=== PATIENT | male | born 1950 | race African-American/Black ===

== ENCOUNTER → 2017-07-26 | Outpatient (CLI) | payer OTHER, MEDICAID ==
[2016-10-20 09:17] VITALS: BP 127/70
[~2017-07-26] MED LIST: AZIT250T PO; BENZ100C PO; PROAIR HFA8.5 GM INH
--- NOTE | 2017-07-26 12:07 | RAD ---
Exam performed: 2 views of the chest. Indication: SHORTNESS OF AIR X 2 YEARS Date of Service:07/26/2017 2:00 AM . Comparison : One view chest from 10/20/16 Findings: PA and lateral radiographs of the chest reveal a normal cardiomediastinal contour. Atheromatous calcification of the aortic knob. The lungs are emphysematous, however clear. No pleural fluid is seen. The visualized osseous structures are unremarkable. Impression: No acute cardiopulmonary process seen..
== END | disposition home or self-care (01) ==
LOC: RAD 11:45
PROVIDERS: ATTEND Internal Medicine Pulmonary Disease
DX: J43.9 Emphysema, unspecified (principal); I70.0 Atherosclerosis of aorta
CPT/HCPCS: 71020

== ENCOUNTER → 2017-08-16 | Outpatient (CLI) | payer OTHER, MEDICAID ==
[2016-10-20 09:17] VITALS: BP 127/70
--- NOTE | 2017-08-16 15:18 | RAD ---
Indication chronic shortness of breath. Noncontrast imaging through the chest was performed. No prior CT imaging of the chest is available. Imaging through the upper abdomen shows no acute finding. There is a 1 cm mass in the left kidney likely reflecting a cyst. There is moderate plaquing associated with the thoracic aorta. Some coronary artery calcification is noted. There is a possible mass associated with the left lobe of the thyroid. The finding is not certain. If additional evaluation of the thyroid is warranted ultrasound could be performed. No significant mediastinal or hilar adenopathy isn't seen. There is mild hyperexpansion of the lungs. Advanced emphysematous changes are not seen. There is a small nodule peripherally in the left upper lobe, image 19 series 2 with an additional nodule slightly more caudally in the left upper lobe, image 24. Both of these nodules measure 3 to 4 millimeters in greatest dimension. An additional nodule is seen peripherally at the left lung base measuring approximately 4 mm. An acute parenchymal infiltrate is not seen. Significant pleural fluid is not present. IMPRESSION: No definite acute process seen in the chest. Moderate hyperexpansion. 2 nodules in the left upper lobe each measuring approximately 3 to 4 mm in greatest dimension. An additional nodule is seen in the left lower lobe, image 59, measuring approximately 4 mm. Follow-up imaging along the lines of the Fleischner criteria advised. Nodules detected incidentally at non-screening CT Nodule size (mm) less than or equal to 4 Low Risk patients- no follow-up needed High Risk patients- follow-up at 12 months and if no change, no further imaging needed. Nodule size > 4-6 mm Low risk patients- follow- up at 12 months and if no change, no further imaging needed High risk patients- initial follow-up CT at 6-12 months and then at 18-24 months if no change. Nodule Size > 6-8 mm Low risk patients- initial follow-up CT at 6-12 months and then at 18-24 months if no change. High risk patients- initial follow- up CT at 3-6 months and then at 9-12 months if no change, Nodule Size >8 mm Either low or high risk patients: Follow-up CT at around 3, 9 and [address], PET, and/or biopsy Note: newly detected indeterminate nodule in person 35 years of age or older. Low risk patients- minimal or absent history of smoking and/or other known risk factors. High risk patients- history of smoking or of other known risk factors. PQRS Compliance Statement: One or more of the following individualized dose reduction techniques were utilized for this examination: 1. Automated exposure control 2. Adjustment of the mA and/or kV according to patient size 3. Use of iterative reconstruction technique
== END | disposition home or self-care (01) ==
LOC: CT 14:42
PROVIDERS: ATTEND Internal Medicine Pulmonary Disease
DX: E04.2 Nontoxic multinodular goiter (principal)
CPT/HCPCS: 71250

== ENCOUNTER → 2017-10-27 | Outpatient (CLI) | payer OTHER ==
[2016-10-20 09:17] VITALS: BP 127/70
--- NOTE | 2017-10-28 15:48 | SLEEP ---
DATE OF STUDY: ATTENDING PHYSICIAN: Dr. Blackburn. REFERRING PHYSICIAN: Dr. Miramontes. The patient is a 67-year-old, who weighs 128 pounds with a BMI of 22. The patient's Patterson score was 8. Diagnostic sleep study was performed at [facility]. During the night study, the patient spent 419 minutes in bed and slept for 263 minutes with a low sleep efficiency of 63%. Sleep latency was 15 minutes with a REM latency of 193 minutes. Overall, sleep architecture showed increased stage 1 and stage 2 sleep, absent slow wave and reduced REM sleep. During the night of study, the patient had 2 obstructive apneas, 1 mixed and no central apneas. There were 7 hypopneas. The patient's apnea hypopnea index was 2 per hour, supine index 4 per hour and a REM index of 12 per hour. Review of nocturnal oximetry study revealed a mean oxygen saturation of 96%, with the lowest of 88%. No clinically significant desaturations of less than 88% were observed. PLMS were seen at index of 10 per hour and 1 per hour caused EEG arousals. EKG monitoring revealed normal sinus rhythm, average heart rate was 72 beats per minute, no sustained arrhythmias were observed. Due to low AHI, the patient did not meet the split night criteria for CPAP initiation. IMPRESSION: 1. No clinically significant sleep disorder breathing. The patient's AHI for the entire night was 2 per hour. 2. No clinically significant nocturnal hypoxia. 3. Mild PLMS without any significant EEG arousals. This does not need to be treated. 4. Reduced sleep efficiency of 63%, resulting from sleep maintenance insomnia. RECOMMENDATIONS: 1. The patient did not meet the split night criteria for CPAP initiation. 2. Avoid BRICK OFFBEARER depressants. 3. Evaluate the patient's insomnia and treat according to the etiology. BHAVIK ZARAGOZA MD DR: MOHIT/pippa JOB#: [id number] / [id number] DR ORLIN Reyes GEORGE MD
== END | disposition home or self-care (01) ==
LOC: SLPLAB 17:45
PROVIDERS: ATTEND Internal Medicine Pulmonary Disease
DX: G47.33 Obstructive sleep apnea (adult) (pediatric) (principal)
CPT/HCPCS: 95810

== ENCOUNTER 2018-11-05 09:14 | Emergency (ER) | payer OTHER ==
[~2018-11-05] VITALS: Ht 162.6 cm; Wt 59.0 kg
[2018-11-05 09:30] VITALS: BP 167/93
[2018-11-05] MEDS ORDERED: AZITHROMYCIN 250 MG TABLET. PO ONE (09:45)
[2018-11-05] MEDS ORDERED: cefTRIAXone IM 250 MG VIAL IM ONE (09:45)
[2018-11-05] MEDS ORDERED: METR500T PO (09:47)
--- NOTE | 2018-11-05 09:47 | PHYS DOC ---
Past Medical History Past Medical History: COPD, High Cholesterol, Hypertension Past Surgical History: Other Additional Past Surgical Histo: 4 stents Alcohol Use: Occasionally Drug Use: None Adult General Chief Complaint Chief Complaint: SEXUALLY TRANSMITTED DISEASE HPI HPI 68 y/o male presents with history of concern for possible STD. Reports he cheated on his with a younger girl and his recently tested positive for Trichomonas. Reports he was instructed to present to the ED for evaluation and treatment. Reports upon waking he does have a "foul odor". Denies dysuria or hematuria. Denies penile discharge or rash. Denies fever/chills. Review of Systems Review of Systems Constitutional: Denies fever or chills [] Eyes: Denies change in visual acuity, redness, or eye pain [] HENT: Denies nasal congestion or sore throat [] Respiratory: Denies cough or shortness of breath [] Cardiovascular: Denies chest pain or palpitation GI: Denies abdominal pain, nausea, vomiting, or diarrhea [] : Denies dysuria or hematuria; reports "foul odor" Integument: Denies rash or skin lesions [] Neurologic: Denies headache, focal weakness or sensory changes [] Complete systems were reviewed and found to be within normal limits, except as documented in this note. Current Medications Current Medications Current Medications Medications (Trade) Dose Ordered Sig/Candace Start Time Stop Time Status Last Admin Dose Admin Azithromycin (Zithromax) 1,000 mg 1X ONCE 11/05/18 09:45 11/05/18 09:48 DC 11/05/18 10:03 1,000 MG Ceftriaxone Sodium (Rocephin Im) 250 mg 1X ONCE 11/05/18 09:45 11/05/18 09:48 DC 11/05/18 10:04 250 MG Allergies Allergies Allergies Coded Allergies Type Severity Reaction Last Updated Verified No Known Drug Allergies 10/20/16 No Physical Exam Physical Exam Constitutional: Well developed, well nourished, no acute distress, non-toxic appearance. [] HENT: Normocephalic, atraumatic, Eyes: Conjunctiva normal, no discharge. [] Neck: Normal range of motion, no tenderness, supple Cardiovascular: Heart rate regular rhythm, no murmur [] Lungs & Thorax: Bilateral breath sounds clear to auscultation [] Abdomen: Soft, no tenderness Skin: Warm, dry, no erythema, no rash. [] Neurologic: Alert and oriented X 3, no focal deficits noted. [] Psychologic: Affect normal, judgement normal, mood normal. [] Current Patient Data Vital Signs Vital Signs Date Time Temp Pulse Resp B/P (MAP) Pulse Ox O2 Delivery O2 Flow Rate FiO2 11/05/18 09:30 97.5 69 20 167/93 (117) 99 Room Air 97.5 Lab Values Laboratory Tests Test 11/05/18 09:45 Urine Collection Type Void Urine Color Yellow Urine Clarity Clear Urine pH 5.5 Urine Specific [place] 1.015 Urine Protein Negative mg/dL (NEG-TRACE) Urine Glucose (UA) Negative mg/dL (NEG) Urine Ketones (Stick) Negative mg/dL (NEG) Urine Blood Negative (NEG) Urine Nitrite Negative (NEG) Urine Bilirubin Negative (NEG) Urine Urobilinogen Dipstick 1.0 mg/dL (0.2 mg/dL) Urine Leukocyte Esterase Moderate (NEG) Urine RBC Occ /HPF (0-2) Urine WBC 11-20 /HPF (0-4) Urine Squamous Epithelial Cells Mod /LPF Urine Bacteria Few /HPF (0-FEW) Urine Mucus Marked /LPF Urine Trichomonas Present Urine Sperm Present /HPF EKG EKG [] Radiology/Procedures Radiology/Procedures [] Course & Med Decision Making Course & Med Decision Making Pertinent Labs and Imaging studies reviewed. (See chart for details) Patient presents with report of concern for STD. Physical exam unremarkable. Urine Chlamydia and gonorrhea pending. Empiric antibiotics initiated. UA with signs of infection and trichomonas present. WBC likely due to trichamonas and/ or other infectious process. Will start patient on Flagyl. Patient stable for discharge with outpatient follow-up with PCP. Discussed findings and plan with patient, who acknowledges understanding and agreement. Dragon Disclaimer Dragon Disclaimer This electronic medical record was generated, in whole or in part, using a voice recognition dictation system. Departure Departure Impression: Primary Impression: Concern about sexually transmitted disease in male without diagnosis Additional Impression: Trichomoniasis Disposition: 01 HOME, SELF-CARE Condition: STABLE Referrals: [facility] (PCP) Patient Instructions: Sexually Transmitted Disease, [id number]-[id number] Scripts Metronidazole (FLAGYL) 500 Mg Tablet 1 TAB PO BID, #14 TAB Prov: RANJIT DINH DO 12/8/18 Problem Qualifiers RANJIT DINH DO Nov 05, 2018 09:47
[2018-11-05 10:02] LABS: BILIRUBIN,URINE NEGATIVE (NEG); CLARITY,URINE CLEAR; COLOR,URINE YELLOW; NITRITE,URINE NEGATIVE (NEG); PH,URINE 5.5; PROTEIN,URINE NEGATIVE (NEG-TRACE)
[2018-11-05 10:08] LABS: SQUAMOUS EPITHELIAL CELL,UR MOD /LPF
[2018-11-05 10:11] LABS: SPERM,URINE PRESENT /HPF; TRICHOMONAS,URINE PRESENT
[2018-11-05 10:12] LABS: BACTERIA,URINE FEW /HPF (0-FEW)
[2018-11-05 10:18] LABS: RBC,URINE OCC /HPF (0-2)
== END 2018-11-05 10:26 | disposition home or self-care (01) ==
LOC: ER 09:14
DX: Z20.2 Contact with and (suspected) exposure to infections with a predominantly sexual mode of transmission (principal); A59.9 Trichomoniasis, unspecified; R82.998 Other abnormal findings in urine; E78.00 Pure hypercholesterolemia, unspecified; I10 Essential (primary) hypertension; J44.9 Chronic obstructive pulmonary disease, unspecified; Z95.5 Presence of coronary angioplasty implant and graft
CPT/HCPCS: 81001; 87086; 87491; 87591; 96372; 99283; J0696; Q0144

== ENCOUNTER 2018-11-08 17:12 | Emergency (ER) | payer OTHER ==
[~2018-11-08] VITALS: Ht 162.6 cm; Wt 58.1 kg
[~2018-11-08 17:12] MED LIST changes: +METR500T PO
--- NOTE | 2018-11-08 19:23 | PHYS DOC ---
Past Medical History Past Medical History: COPD, High Cholesterol, Heart Disease, Hypertension Past Surgical History: Other Additional Past Surgical Histo: 4 stents Alcohol Use: Occasionally Drug Use: None Adult General Chief Complaint Chief Complaint: SHORTNESS OF BREATH HPI HPI Patient is a 68 year old male who presents with shortness of breath. This started last night. Patient is been getting no relief with his home medicines for COPD. Patient has never been intubated for COPD. Last steroids were greater than 6 months ago when he was seen at . He has been previously admitted due to COPD exacerbations. Patient denies any fever, mild cough. No chest pain.[] Review of Systems Review of Systems Constitutional: Denies fever or chills [] Eyes: Denies change in visual acuity, redness, or eye pain [] HENT: Denies nasal congestion or sore throat [] Respiratory: See history of present illness[] Cardiovascular: No chest pain or palpitations[] GI: Denies abdominal pain, nausea, vomiting, bloody stools or diarrhea [] : Denies dysuria or hematuria [] Musculoskeletal: Denies back pain or joint pain [] Integument: Denies rash or skin lesions [] Neurologic: Denies focal weakness or sensory changes. Reports a mild generalized headache. [] Endocrine: Denies polyuria or polydipsia [] All other systems were reviewed and found to be within normal limits, except as documented in this note. Current Medications Current Medications Current Medications Medications (Trade) Dose Ordered Sig/Candace Start Time Stop Time Status Last Admin Dose Admin Albuterol Sulfate (Ventolin Neb Soln) 2.5 mg 1X ONCE 11/08/18 19:30 11/08/18 19:31 DC 11/08/18 19:50 2.5 MG Ipratropium [place] (Atrovent) 0.5 mg 1X ONCE 11/08/18 19:30 11/08/18 19:31 DC 11/08/18 19:49 0.5 MG Methylprednisolone Sodium Succinate (SOLU-Medrol 125MG VIAL) 125 mg 1X ONCE 11/08/18 19:30 11/08/18 19:31 DC 11/08/18 19:40 125 MG Allergies Allergies Allergies Coded Allergies Type Severity Reaction Last Updated Verified No Known Drug Allergies 11/08/18 No Physical Exam Physical Exam Constitutional: Well developed, well nourished, no acute distress, non-toxic appearance. [] HENT: Normocephalic, atraumatic, bilateral external ears normal, oropharynx moist, no oral exudates, nose normal. [] Eyes: PERRLA, EOMI, conjunctiva normal, no discharge. [] Neck: Normal range of motion, no tenderness, supple, no stridor. [] Cardiovascular:Heart rate regular rhythm, no murmur [] Lungs & Thorax: Bilateral breath sounds with end expiratory wheezes.[] Abdomen: Bowel sounds normal, soft, no tenderness, no masses, no pulsatile masses. [] Skin: Warm, dry, no erythema, no rash. [] Back: No tenderness, no CVA tenderness. [] Extremities: No tenderness, no cyanosis, no clubbing, ROM intact, no edema. [] Neurologic: Alert and oriented X 3, normal motor function, normal sensory function, no focal deficits noted. [] Psychologic: Affect normal, judgement normal, mood normal. [] Current Patient Data Vital Signs Vital Signs Date Time Temp Pulse Resp B/P (MAP) Pulse Ox O2 Delivery O2 Flow Rate FiO2 11/08/18 19:45 97 Nasal Cannula 2.0 11/08/18 18:20 98.9 74 24 186/91 (122) 98.9 Lab Values Laboratory Tests Test 11/08/18 18:45 11/08/18 19:35 White Blood Count 4.1 x10^3/uL (4.0-11.0) Red Blood Count 4.35 x10^6/uL (4.30-5.70) Hemoglobin 13.5 g/dL (13.0-17.5) Hematocrit 39.8 % (39.0-53.0) Mean Corpuscular Volume 91 fL (79-100) Mean Corpuscular Hemoglobin 31 pg (25-35) Mean Corpuscular Hemoglobin Concent 34 g/dL (31-37) Red Cell Distribution Width 14.0 % (11.5-14.5) Platelet Count 178 x10^3/uL (140-400) Neutrophils (%) (Auto) 56 % (31-73) Lymphocytes (%) (Auto) 27 % (24-48) Monocytes (%) (Auto) 10 % (0-9) H Eosinophils (%) (Auto) 6 % (0-3) H Basophils (%) (Auto) 1 % (0-3) Neutrophils # (Auto) 2.3 x10^3uL (1.8-7.7) Lymphocytes # (Auto) 1.1 x10^3/uL (1.0-4.8) Monocytes # (Auto) 0.4 x10^3/uL (0.0-1.1) Eosinophils # (Auto) 0.3 x10^3/uL (0.0-0.7) Basophils # (Auto) 0.0 x10^3/uL (0.0-0.2) Sodium Level 140 mmol/L (136-145) Potassium Level 3.9 mmol/L (3.5-5.1) Chloride Level 103 mmol/L (98-107) Carbon Dioxide Level 29 mmol/L (21-32) Anion Gap 8 (6-14) Blood Urea Nitrogen 21 mg/dL (8-26) Creatinine 1.0 mg/dL (0.7-1.3) Estimated GFR (Cockcroft-Gault) 90.2 BUN/Creatinine Ratio 21 (6-20) H Glucose Level 80 mg/dL (70-99) Calcium Level 9.1 mg/dL (8.5-10.1) Total Bilirubin 0.2 mg/dL (0.2-1.0) Aspartate Amino Transferase (AST) 20 U/L (15-37) Alanine Aminotransferase (ALT) 21 U/L (16-63) Alkaline Phosphatase 74 U/L (46-116) Troponin I Quantitative < 0.017 ng/mL (0.000-0.055) JL-Eyj-I-Type Natriuretic Peptide 215 pg/mL (0-124) H Total Protein 7.3 g/dL (6.4-8.2) Albumin 3.8 g/dL (3.4-5.0) Albumin/Globulin Ratio 1.1 (1.0-1.7) Influenza Type A Antigen Negative (NEGATIVE) Influenza Type B Antigen Negative (NEGATIVE) Laboratory Tests 11/08/18 18:45 Laboratory Tests 11/08/18 18:45 EKG EKG EKG shows a sinus rhythm at 74 bpm, normal axis, normal QTC, no ST elevation.[] Radiology/Procedures Radiology/Procedures Chest x-ray FINDINGS: Heart is normal in size. Lungs are hyperinflated but clear. No pneumothorax or pleural effusion. Visualized bony thorax is within normal limits. Impression: Findings of COPD. No acute pulmonary process.[] Course & Med Decision Making Course & Med Decision Making Pertinent Labs and Imaging studies reviewed. (See chart for details) ED course: Patient arrived, was placed in bed, tolerated exam well. Patient was transported to and from x-ray with any consultations. Patient did receive breathing treatments which didn't improve his breath sounds. Patient was able to ambulate about the emergency department without any difficulty breathing. After the return of lab and tray findings, these were discussed with the patient to voiced understanding. All questions were answered. Occult decision making: There is no evidence of pneumonia, pneumothorax, hypoxia worse than his usual baseline for which he requires 2 L nasal cannula supplemental oxygen, no evidence of a acute coronary syndrome, no evidence of pulmonary embolism.[] Dragon Disclaimer Dragon Disclaimer This electronic medical record was generated, in whole or in part, using a voice recognition dictation system. Departure Departure Impression: Primary Impression: Acute exacerbation of chronic obstructive pulmonary disease (COPD) Disposition: 01 HOME, SELF-CARE Condition: GOOD Referrals: [facility] (PCP) Follow-up in 2 days Patient Instructions: Chronic Obstructive Pulmonary Disease Exacerbation Additional Instructions: Follow-up with your regular doctor 2 days. Return to the ER if worsening difficulty breathing or any other concerns. Scripts Doxycycline Hyclate (DOXYCYCLINE HYCLATE) 100 Mg Tablet 100 MG PO BID, #20 TAB Prov: TATY AL DO 11/08/18 Prednisone (PREDNISONE) 50 Mg Tablet 50 MG PO DAILY for 7 Days, #7 TAB Prov: TATY AL DO 11/08/18 TATY AL DO Nov 08, 2018 19:23
[2018-11-08 19:33] LABS: BASO % 1 % (0-3); EOS # 0.3 x10^3/uL (0.0-0.7); EOS % 6 % (0-3); HEMATOCRIT 39.8 % (39.0-53.0); HEMOGLOBIN 13.5 g/dL (13.0-17.5); LYMPH # 1.1 x10^3/uL (1.0-4.8); LYMPH % 27 % (24-48); MEAN CORPUSCULAR HEMOGLOBIN 31 pg (25-35); MEAN CORPUSCULAR HGB CONC 34 g/dL (31-37); MEAN CORPUSCULAR VOLUME 91 fL (79-100); MONO # 0.4 x10^3/uL (0.0-1.1); MONO % 10 % (0-9); NEUT # 2.3 x10^3uL (1.8-7.7); NEUT % 56 % (31-73); PLATELET COUNT 178 x10^3/uL (140-400); RED BLOOD COUNT 4.35 x10^6/uL (4.30-5.70); WHITE BLOOD COUNT 4.1 x10^3/uL (4.0-11.0)
[2018-11-08] MEDS: methylPREDNISolone SOD SUCC PF 125 MG/2 ML VIAL. IV ONE (19:40)
[2018-11-08 19:42] LABS: CALCIUM 9.1 mg/dL (8.5-10.1); GFR 90.2; POTASSIUM 3.9 mmol/L (3.5-5.1)
[2018-11-08 19:48] LABS: ALBUMIN 3.8 g/dL (3.4-5.0); ALBUMIN/GLOBULIN RATIO 1.1 (1.0-1.7); TOTAL BILIRUBIN 0.2 mg/dL (0.2-1.0); TOTAL PROTEIN 7.3 g/dL (6.4-8.2)
[2018-11-08] MEDS: IPRATROPIUM BROMIDE 0.5 MG/2.5 ML NEBU. NEB ONE (19:49)
[2018-11-08] MEDS: ALBUTEROL SULFATE 2.5 MG/3 ML NEBU. NEB ONE (19:50)
[2018-11-08 20:19] LABS: INFLUENZA A PATIENT NEGATIVE (NEGATIVE); INFLUENZA B PATIENT NEGATIVE (NEGATIVE)
--- NOTE | 2018-11-08 20:29 | RAD ---
CHEST PA LATERAL CLINICAL INDICATION: short of breath, hx of COPD COMPARISON: 07/26/2017 FINDINGS: Heart is normal in size. Lungs are hyperinflated but clear. No pneumothorax or pleural effusion. Visualized bony thorax is within normal limits. Impression: Findings of COPD. No acute pulmonary process. Electronically signed by: Fer Edmondson DO (11/08/2018 8:26 PM) [facility]
[2018-11-08] MEDS ORDERED: DOXY100T PO (20:40)
[2018-11-08] MEDS ORDERED: PRED50TA PO (20:40)
[2018-11-08 21:00] VITALS: BP 179/97
--- NOTE | 2018-11-08 22:02 | EKG ---
[facility] [address] [place] [address] Test Date: 2018-11-08 Test Time: 18:21:47 Pat Name: TACO POWER Department: Room: Gender: M Time Study Observer: : 1950 Requested By: TATY AL Order Number: [id number] Reading MD: Measurements Intervals [place] Rate: 74 P: 71 NV: 116 QRS: 74 QRSD: 80 T: 65 QT: 336 QTc: 378 Interpretive Statements SINUS RHYTHM NO SPECIFIC ECG ABNORMALITIES RI6.01 No previous ECG available for comparison
== END 2018-11-08 21:00 | disposition home or self-care (01) ==
LOC: ER 17:12
DX: J44.1 Chronic obstructive pulmonary disease with (acute) exacerbation (principal); E78.00 Pure hypercholesterolemia, unspecified; I11.9 Hypertensive heart disease without heart failure; Z95.5 Presence of coronary angioplasty implant and graft
CPT/HCPCS: 36415; 71046; 80053; 83880; 84484; 85025; 87804; 93005; 94640; 96374; 99284; J2930; J7613; J7644

== ENCOUNTER 2019-10-17 15:56 | Inpatient (IN) | payer OTHER, MEDICAID ==
[~2019-10-17] VITALS: Ht 162.6 cm; Wt 50.8 kg
[~2019-10-17 15:56] MED LIST changes: +ALBU2.5V8 INH; +DOXY100T PO; +PRED50TA PO; -PROAIR HFA8.5 GM INH
[2019-10-17] MEDS ORDERED: DEXAMETHASONE SOD PHOS 4 MG/ML VIAL IVP ONE (16:15)
[2019-10-17] MEDS ORDERED: KETOROLAC 15 MG/ML VIAL. IVP ONE (16:15)
[2019-10-17] MEDS ORDERED: FAMOTIDINE 20 MG/2 ML VIAL IVP ONE (16:15)
[2019-10-17] MEDS ORDERED: IV NORMAL SALINE 1000ML BAG 1,000 ML IV ONE ×2 (16:15→18:30)
[2019-10-17] MEDS ORDERED: IPRATRPIUM/ALBUTEROL 0.5/2.5MG 3 ML NEBU. NEB ONE (16:15)
--- NOTE | 2019-10-17 16:23 | PHYS DOC ---
Past Medical History Past Medical History: COPD, High Cholesterol, Heart Disease, Hypertension Past Surgical History: Other Additional Past Surgical Histo: 4 stents Smoking: Quit Greater Than 1 Year Additional Information: Quit 18 years ago Alcohol Use: Occasionally Drug Use: None Adult General Chief Complaint Chief Complaint: SHORTNESS OF BREATH HPI HPI Pt is a 69 y/o male with a history of COPD, MIx2 w/ stent placement, HLD, and HTN who presents to the ED with weakness, SOB, and productive cough for the past 2 days. He also complains of periumbilical abdominal pain and dizziness. Denies nausea, vomiting,diarrhea, recent travel, and dysuria. Denies trauma. Denies fever/chills. Review of Systems Review of Systems Constitutional: Denies fever or chills Eyes: Denies redness or eye pain HENT: Denies nasal congestion or sore throat Respiratory: Reports cough and SOB Cardiovascular: Denies chest pain or palpitations GI: Reports abdominal pain; denies nausea, vomiting, or diarrhea : Denies dysuria or hematuria Musculoskeletal: Denies back pain or joint pain Integument: Denies rash or skin lesions Neurologic: Reports weakness and dizziness Complete systems were reviewed and found to be within normal limits, except as documented in this note. Current Medications Current Medications Current Medications Medications (Trade) Dose Ordered Sig/Candace Start Time Stop Time Status Last Admin Dose Admin Acetaminophen (Tylenol) 650 mg PRN Q4HRS PRN 10/17/19 18:30 UNV Albuterol Sulfate (Ventolin Neb Soln) 2.5 mg PRN Q4HRS PRN 10/17/19 18:30 UNV Albuterol/ Ipratropium (Duoneb) 3 ml 1X ONCE 10/17/19 16:15 10/17/19 16:19 DC 10/17/19 16:23 3 ML Clonidine HCl (Catapres) 0.1 mg PRN Q6HRS PRN 10/17/19 18:30 UNV Dexamethasone Sodium Phosphate (Decadron) 10 mg 1X ONCE 10/17/19 16:15 10/17/19 16:19 DC 10/17/19 17:17 10 MG Docusate Sodium (Colace) 100 mg PRN BID PRN 10/17/19 18:30 UNV Famotidine (Pepcid Vial) 20 mg 1X ONCE 10/17/19 16:15 10/17/19 16:19 DC 10/17/19 17:16 20 MG Guaifenesin (Robitussin) 200 mg PRN Q4HRS PRN 10/17/19 18:30 UNV Info (CONTRAST GIVEN -- Rx MONITORING) 1 each PRN DAILY PRN 10/17/19 16:45 10/19/19 16:44 Iohexol (Omnipaque 300 Mg/ml) 75 ml 1X ONCE 10/17/19 16:45 10/17/19 16:46 DC 10/17/19 17:04 75 ML Ketorolac Tromethamine (Toradol 15mg Vial) 10 mg 1X ONCE 10/17/19 16:15 10/17/19 16:19 DC 10/17/19 17:16 10 MG Lorazepam (Ativan) 0.5 mg PRN Q4HRS PRN 10/17/19 18:30 UNV Ondansetron HCl (Zofran) 4 mg PRN Q4HRS PRN 10/17/19 18:30 UNV Sodium Chloride 1,000 ml @ 100 mls/hr Q10H 10/17/19 18:26 UNV Sodium Chloride (Normal Saline Flush) 3 ml QSHIFT PRN 10/17/19 18:30 UNV Allergies Allergies Allergies Coded Allergies Type Severity Reaction Last Updated Verified No Known Drug Allergies 11/08/18 No Physical Exam Physical Exam Constitutional: Appears cachetic and thin Eyes: Conjunctiva normal, NO discharge HENT: Normocephalic, atraumatic, oropharynx dry, edentulous Cardiovascular: Heart rate tachycardic, regular rhythm Lungs & Thorax: Bilateral breath sounds clear to auscultation but with short inspirations Abdomen: Soft, periumbilical tenderness on palpation, guarding, no distention Skin: Warm, dry, no erythema, no rash Back: No tenderness, no CVA tenderness Extremities: No tenderness, ROM intact, no edema Neurologic: Alert and oriented X 3, normal motor function, normal sensory function, no focal deficits noted Psychiatric: Flat affect, judgement normal Current Patient Data Vital Signs Vital Signs Date Time Temp Pulse Resp B/P (MAP) Pulse Ox O2 Delivery O2 Flow Rate FiO2 10/17/19 16:24 97 Room Air 10/17/19 15:56 98.4 76 18 112/64 (80) 98.4 Lab Values Laboratory Tests Test 10/17/19 16:04 White Blood Count 3.6 x10^3/uL (4.0-11.0) L Red Blood Count 5.14 x10^6/uL (4.30-5.70) Hemoglobin 15.6 g/dL (13.0-17.5) Hematocrit 47.3 % (39.0-53.0) Mean Corpuscular Volume 92 fL (79-100) Mean Corpuscular Hemoglobin 30 pg (25-35) Mean Corpuscular Hemoglobin Concent 33 g/dL (31-37) Red Cell Distribution Width 14.4 % (11.5-14.5) Platelet Count 206 x10^3/uL (140-400) Neutrophils (%) (Auto) 52 % (31-73) Lymphocytes (%) (Auto) 29 % (24-48) Monocytes (%) (Auto) 18 % (0-9) H Eosinophils (%) (Auto) 0 % (0-3) Basophils (%) (Auto) 1 % (0-3) Neutrophils # (Auto) 1.9 x10^3/uL (1.8-7.7) Lymphocytes # (Auto) 1.0 x10^3/uL (1.0-4.8) Monocytes # (Auto) 0.7 x10^3/uL (0.0-1.1) Eosinophils # (Auto) 0.0 x10^3/uL (0.0-0.7) Basophils # (Auto) 0.0 x10^3/uL (0.0-0.2) Sodium Level 138 mmol/L (136-145) Potassium Level 4.6 mmol/L (3.5-5.1) Chloride Level 98 mmol/L (98-107) Carbon Dioxide Level 29 mmol/L (21-32) Anion Gap 11 (6-14) Blood Urea Nitrogen 16 mg/dL (8-26) Creatinine 1.6 mg/dL (0.7-1.3) H Estimated GFR (Cockcroft-Gault) 52.3 BUN/Creatinine Ratio 10 (6-20) Glucose Level 104 mg/dL (70-99) H Lactic Acid Level 1.5 mmol/L (0.4-2.0) Calcium Level 9.2 mg/dL (8.5-10.1) Magnesium Level 2.2 mg/dL (1.8-2.4) Total Bilirubin 0.6 mg/dL (0.2-1.0) Aspartate Amino Transferase (AST) 28 U/L (15-37) Alanine Aminotransferase (ALT) 23 U/L (16-63) Alkaline Phosphatase 65 U/L (46-116) Creatine Kinase 300 U/L (39-308) Creatine Kinase MB (Mass) 1.1 ng/mL (0.0-3.6) Creatine Kinase MB Relative Index 0.4 % (0-4) Troponin I Quantitative < 0.017 ng/mL (0.000-0.055) Total Protein 7.8 g/dL (6.4-8.2) Albumin 3.6 g/dL (3.4-5.0) Albumin/Globulin Ratio 0.9 (1.0-1.7) L Lipase 75 U/L (73-393) Laboratory Tests 10/17/19 16:04 Laboratory Tests 10/17/19 16:04 EKG EKG [] Interpretation Time: ECG @ 1641 on 10/17/19, 81 BPM, Sinus rhythm with PACs, No ST elevations Radiology/Procedures Radiology/Procedures PROCEDURE: CT CHEST ABD PELVIS W/CONTRAST CT CHEST ABD PELVIS W/CONTRAST Clinical Indication: Cough, periumbilical pain COMPARISON: CT chest 12/16/2016 TECHNIQUE: Multiple contiguous axial images were obtained throughout the chest, abdomen, and pelvis with the use of IV contrast. Axial images were reformatted into coronal and sagittal planes. 60 mL Omnipaque 300 was administered. One or more of the following dose reduction techniques were utilized: Automated exposure control (AEC), Adjustment of mA and/or kV according to patient size, Use of iterative reconstruction technique such as ASiR, CT scan done according to ALARA and image gently/image wisely. Chest Findings: Left thyroid nodule measuring 2.7 cm. There is no axillary, mediastinal, or hilar adenopathy. Atherosclerosis of the thoracic aorta. The cardiac size is normal. Coronary artery atherosclerotic disease. There is no pericardial effusion. The central airways are patent. There is no focal consolidation. Stable small pulmonary nodules with resources representative nodules as follows: left upper lobe nodule measuring 0.5 cm (series 2 image 17) and left lower lobe nodule measuring 0.3 cm (image 56). Centrilobular emphysema. No pleural effusion is observed. There is no pneumothorax. Abdomen findings: The liver, gallbladder, pancreas, and adrenal glands are unremarkable. Calcified splenic granulomas. 1.3 cm left renal cyst. No hydronephrosis There is no significant mesenteric or retroperitoneal adenopathy identified. There is no evidence of free intraperitoneal fluid or pneumoperitoneum. Visualized portions of the bowel are grossly unremarkable. Diffuse aortoiliac atherosclerotic disease. Pelvis findings: The bladder and distal ureters are unremarkable. There is no significant pelvic ascites. No significant iliac or inguinal adenopathy is identified. Multilevel degenerative changes of the spine. IMPRESSION: 1. No pulmonary mass or consolidation. 2. No acute abdominal process. 3. Left thyroid nodule measuring 2.7 cm should be further characterized with nonemergent thyroid ultrasound, if not performed previously. Electronically signed by: Gui Bo MD (10/17/2019 5:39 PM) [facility] [place] [facility] [place] Course & Med Decision Making Course & Med Decision Making Pt is a 69 y/o male with a history of COPD, MIx2, HLD, HTN who presents to the ED with weakness, cough, and SOB for the past 2 days. Also complains of abdominal pain and dizziness. Pt given a DuoNeb breathing treatment due to increased work of breathing. Clinical signs of dehydration. IVF hydration given. Symptomatic treatment provided. Labs obtained and posted to chart. Renal insufficiency noted. UA pending. EKG stable. CT chest/abd/pelvis without acute process. Patient requiring admission for further evaluation and treatment. Discussed case with Dr. Calhoun (hospitalist) who is in agreement with admission. Discussed findings and plan with patient, who acknowledges understanding and agreement. Dragon Disclaimer Dragon Disclaimer This electronic medical record was generated, in whole or in part, using a voice recognition dictation system. Departure Departure Impression: Primary Impression: Generalized weakness Additional Impressions: Acute renal insufficiency Abdominal pain Dehydration COPD exacerbation Disposition: ADMITTED INPATIENT Admitting Physician: ADEN (Lj) Condition: STABLE Referrals: [facility] TECHNICIAN (PCP) NIHSS - ED NIH Stroke Scale: NIH Stroke Scale Response (Comments) Value Level of Consciousness: 0 Alert/Responsive 0 LOC Questions: 0 Answers both correctly 0 LOC Commands: 0 Performs both tasks 0 Best Gaze: 0 Normal 0 Visual: 0 No visual loss 0 Facial Palsy: 0 Normal, symmetrical 0 Motor - Left Arm 0 No drift 0 Motor - Right Arm 0 No drift 0 Motor - Left Leg 0 No drift 0 Motor: Right Leg 0 No drift 0 Limb Ataxia: 0 Absent 0 Sensory: 0 No loss 0 Best Language: 0 Normal 0 Dysathria: 0 Normal 0 Extinction and Inattention: 0 Normal 0 Total 0 Problem Qualifiers Additional Impressions: Abdominal pain Abdominal location: periumbilical Qualified Codes: R10.33 - Periumbilical pain RANJIT DINH DO Oct 17, 2019 16:23
[2019-10-17 16:45] LABS: CALCIUM 9.2 mg/dL (8.5-10.1); CREATININE 1.6 mg/dL (0.7-1.3); GFR 52.3; POTASSIUM 4.6 mmol/L (3.5-5.1)
[2019-10-17] MEDS ORDERED: CONTRAST GIVEN. MC PRN (16:45)
[2019-10-17] MEDS ORDERED: IOHEXOL 300 MG/ML 100ML VIAL. IV ONE (16:45)
[2019-10-17 16:50] LABS: ALBUMIN 3.6 g/dL (3.4-5.0); ALBUMIN/GLOBULIN RATIO 0.9 (1.0-1.7); MAGNESIUM 2.2 mg/dL (1.8-2.4); TOTAL BILIRUBIN 0.6 mg/dL (0.2-1.0); TOTAL PROTEIN 7.8 g/dL (6.4-8.2)
[2019-10-17 17:01] LABS: BASO % 1 % (0-3); EOS % 0 % (0-3); HEMATOCRIT 47.3 % (39.0-53.0); HEMOGLOBIN 15.6 g/dL (13.0-17.5); LYMPH % 29 % (24-48); MEAN CORPUSCULAR HEMOGLOBIN 30 pg (25-35); MEAN CORPUSCULAR HGB CONC 33 g/dL (31-37); MEAN CORPUSCULAR VOLUME 92 fL (79-100); MONO # 0.7 x10^3/uL (0.0-1.1); MONO % 18 % (0-9); NEUT # 1.9 x10^3/uL (1.8-7.7); NEUT % 52 % (31-73); PLATELET COUNT 206 x10^3/uL (140-400); RED BLOOD COUNT 5.14 x10^6/uL (4.30-5.70); RED CELL DISTRIBUTION WIDTH 14.4 % (11.5-14.5); WHITE BLOOD COUNT 3.6 x10^3/uL (4.0-11.0)
--- NOTE | 2019-10-17 17:41 | RAD ---
CT CHEST ABD PELVIS W/CONTRAST Clinical Indication: Cough, periumbilical pain COMPARISON: CT chest 12/16/2016 TECHNIQUE: Multiple contiguous axial images were obtained throughout the chest, abdomen, and pelvis with the use of IV contrast. Axial images were reformatted into coronal and sagittal planes. 60 mL Omnipaque 300 was administered. One or more of the following dose reduction techniques were utilized: Automated exposure control (AEC), Adjustment of mA and/or kV according to patient size, Use of iterative reconstruction technique such as ASiR, CT scan done according to ALARA and image gently/image wisely. Chest Findings: Left thyroid nodule measuring 2.7 cm. There is no axillary, mediastinal, or hilar adenopathy. Atherosclerosis of the thoracic aorta. The cardiac size is normal. Coronary artery atherosclerotic disease. There is no pericardial effusion. The central airways are patent. There is no focal consolidation. Stable small pulmonary nodules with customer operations representative nodules as follows: left upper lobe nodule measuring 0.5 cm (series 2 image 17) and left lower lobe nodule measuring 0.3 cm (image 56). Centrilobular emphysema. No pleural effusion is observed. There is no pneumothorax. Abdomen findings: The liver, gallbladder, pancreas, and adrenal glands are unremarkable. Calcified splenic granulomas. 1.3 cm left renal cyst. No hydronephrosis There is no significant mesenteric or retroperitoneal adenopathy identified. There is no evidence of free intraperitoneal fluid or pneumoperitoneum. Visualized portions of the bowel are grossly unremarkable. Diffuse aortoiliac atherosclerotic disease. Pelvis findings: The bladder and distal ureters are unremarkable. There is no significant pelvic ascites. No significant iliac or inguinal adenopathy is identified. Multilevel degenerative changes of the spine. IMPRESSION: 1. No pulmonary mass or consolidation. 2. No acute abdominal process. 3. Left thyroid nodule measuring 2.7 cm should be further characterized with nonemergent thyroid ultrasound, if not performed previously. Electronically signed by: Gui Bo MD (10/17/2019 5:39 PM) [facility]
--- NOTE | 2019-10-17 18:29 | PDOC1 ---
History and Physical Date of Admission Date of Admission DATE: 10/17/19 TIME: 18:21 Identification/Chief Complaint Chief Complaint Pt is a 69 y/o male with a history of COPD, MIx2 w/ stent placement, HLD, and HTN who presents to the ED with weakness, SOB, and productive cough for the past 2 days. He also complains of periumbilical abdominal pain and dizziness. Past Medical History Past Medical History Past Medical History Past Medical History Past Medical History: COPD, High Cholesterol, Heart Disease, Hypertension Past Surgical History: Other Additional Past Surgical Histo: 4 stents Additional Information: Quit 18 years ago Alcohol Use: Occasionally Drug Use: None fhx htn Family History Family History: Hypertension Social History Smoke: Quit ALCOHOL: occassional Drugs: None Current Problem List Problem List Problems Medical Problems: (1) Acute renal insufficiency Status: Acute Current Medications Current Medications Current Medications Sodium Chloride 1,000 ml @ 1,000 mls/hr 1X ONCE IV Last administered on 10/17/19at 17:16; Start 10/17/19 at 16:15; Stop 10/17/19 at 17:14; Status DC Famotidine (Pepcid Vial) 20 mg 1X ONCE IVP Last administered on 10/17/19at 17:16; Start 10/17/19 at 16:15; Stop 10/17/19 at 16:19; Status DC Ketorolac Tromethamine (Toradol 15mg Vial) 10 mg 1X ONCE IVP Last administered on 10/17/19at 17:16; Start 10/17/19 at 16:15; Stop 10/17/19 at 16:19; Status DC Dexamethasone Sodium Phosphate (Decadron) 10 mg 1X ONCE IVP Last administered on 10/17/19at 17:17; Start 10/17/19 at 16:15; Stop 10/17/19 at 16:19; Status DC Albuterol/ Ipratropium (Duoneb) 3 ml 1X ONCE NEB Last administered on 10/17/19at 16:23; Start 10/17/19 at 16:15; Stop 10/17/19 at 16:19; Status DC Iohexol (Omnipaque 300 Mg/ml) 75 ml 1X ONCE IV Last administered on 10/17/19at 17:04; Start 10/17/19 at 16:45; Stop 10/17/19 at 16:46; Status DC Info (CONTRAST GIVEN -- Rx MONITORING) 1 each PRN DAILY PRN MC SEE COMMENTS; Start 10/17/19 at 16:45; Stop 10/19/19 at 16:44 Active Scripts Active Doxycycline Hyclate 100 Mg Tablet 100 Mg PO BID Prednisone 50 Mg Tablet 50 Mg PO DAILY 7 Days Flagyl (Metronidazole) 500 Mg Tablet 1 Tab PO BID Proair Hfa Inhaler (Albuterol Sulfate) 8.5 Gm Hfa.aer.ad 1 Puff INH PRN Q6HRS PRN Tessalon Perle (Benzonatate) 100 Mg Capsule 100 Mg PO TID PRN Zithromax (Azithromycin) 250 Mg Tablet 1 Pkg PO UD Allergies Allergies: Coded Allergies: No Known Drug Allergies (Unverified , 11/08/18) ROS Review of System Review of Systems Review of Systems Constitutional: Denies fever or chills Eyes: Denies redness or eye pain HENT: Denies nasal congestion or sore throat Respiratory: Reports cough and SOB Cardiovascular: Denies chest pain or palpitations GI: Reports abdominal pain, denies nausea, vomiting, and diarrhea : Denies dysuria or hematuria Musculoskeletal: Denies back pain or joint pain Integument: Denies rash or skin lesions Neurologic: Reports weakness and dizziness 14 PT systems were reviewed and found to be within normal limits, except as documented Hematological and Lymphatic: No: Bleeding Problems, Blood Clots, Blood Transfusions, Brusing, Night Sweats, Pallor, Swollen Lymph Nodes, Other Skin: No Dry Skin, No Eczema, No Hair Changes, No Lumps, No Mole Changes, No Mottling, No Nail Changes, No Pruritus, No Rash, No Skin Lesion Changes, No Other, No Acne Physical Exam Physical Exam Physical Exam Physical Exam Constitutional: Appears thin HENT: Normocephalic, atraumatic, oropharynx DRY Cardiovascular: Heart rate tachycardic regular rhythm Lungs & Thorax: Bilateral breath sounds clear to auscultation but with short inspirations Abdomen: Soft, no tenderness Skin: Warm, dry, no erythema, no rash Back: No tenderness, no CVA tenderness Extremities: No tenderness, ROM intact, no edema Neurologic: Alert and oriented X 3, normal motor function, normal sensory function, no focal deficits noted General: Alert, Oriented X3, Cooperative, No acute distress Lungs: Clear to auscultation Heart: RRR Breasts: Not examined Abdomen: Normal bowel sounds, Soft, Other (MILD TENDERNESS) PELVIC: Examination not indicated Extremities: No cyanosis Neuro: Normal speech, Cranial nerves 3-12 NL Psych/Mental Status: Mental status NL, Mood NL Vitals Vitals Vital Signs Date Time Temp Pulse Resp B/P (MAP) Pulse Ox O2 Delivery O2 Flow Rate FiO2 10/17/19 16:24 97 Room Air 10/17/19 15:56 98.4 76 18 112/64 (80) 98.4 Labs Labs Laboratory Tests Test 10/17/19 16:04 White Blood Count 3.6 x10^3/uL (4.0-11.0) Red Blood Count 5.14 x10^6/uL (4.30-5.70) Hemoglobin 15.6 g/dL (13.0-17.5) Hematocrit 47.3 % (39.0-53.0) Mean Corpuscular Volume 92 fL (79-100) Mean Corpuscular Hemoglobin 30 pg (25-35) Mean Corpuscular Hemoglobin Concent 33 g/dL (31-37) Red Cell Distribution Width 14.4 % (11.5-14.5) Platelet Count 206 x10^3/uL (140-400) Neutrophils (%) (Auto) 52 % (31-73) Lymphocytes (%) (Auto) 29 % (24-48) Monocytes (%) (Auto) 18 % (0-9) Eosinophils (%) (Auto) 0 % (0-3) Basophils (%) (Auto) 1 % (0-3) Neutrophils # (Auto) 1.9 x10^3/uL (1.8-7.7) Lymphocytes # (Auto) 1.0 x10^3/uL (1.0-4.8) Monocytes # (Auto) 0.7 x10^3/uL (0.0-1.1) Eosinophils # (Auto) 0.0 x10^3/uL (0.0-0.7) Basophils # (Auto) 0.0 x10^3/uL (0.0-0.2) Sodium Level 138 mmol/L (136-145) Potassium Level 4.6 mmol/L (3.5-5.1) Chloride Level 98 mmol/L (98-107) Carbon Dioxide Level 29 mmol/L (21-32) Anion Gap 11 (6-14) Blood Urea Nitrogen 16 mg/dL (8-26) Creatinine 1.6 mg/dL (0.7-1.3) Estimated GFR (Cockcroft-Gault) 52.3 BUN/Creatinine Ratio 10 (6-20) Glucose Level 104 mg/dL (70-99) Lactic Acid Level 1.5 mmol/L (0.4-2.0) Calcium Level 9.2 mg/dL (8.5-10.1) Magnesium Level 2.2 mg/dL (1.8-2.4) Total Bilirubin 0.6 mg/dL (0.2-1.0) Aspartate Amino Transf (AST/SGOT) 28 U/L (15-37) Alanine Aminotransferase (ALT/SGPT) 23 U/L (16-63) Alkaline Phosphatase 65 U/L (46-116) Creatine Kinase 300 U/L (39-308) Creatine Kinase MB (Mass) 1.1 ng/mL (0.0-3.6) Creatine Kinase MB Relative Index 0.4 % (0-4) Troponin I Quantitative < 0.017 ng/mL (0.000-0.055) Total Protein 7.8 g/dL (6.4-8.2) Albumin 3.6 g/dL (3.4-5.0) Albumin/Globulin Ratio 0.9 (1.0-1.7) Lipase 75 U/L (73-393) Laboratory Tests Test 10/17/19 16:04 White Blood Count 3.6 x10^3/uL (4.0-11.0) Red Blood Count 5.14 x10^6/uL (4.30-5.70) Hemoglobin 15.6 g/dL (13.0-17.5) Hematocrit 47.3 % (39.0-53.0) Mean Corpuscular Volume 92 fL (79-100) Mean Corpuscular Hemoglobin 30 pg (25-35) Mean Corpuscular Hemoglobin Concent 33 g/dL (31-37) Red Cell Distribution Width 14.4 % (11.5-14.5) Platelet Count 206 x10^3/uL (140-400) Neutrophils (%) (Auto) 52 % (31-73) Lymphocytes (%) (Auto) 29 % (24-48) Monocytes (%) (Auto) 18 % (0-9) Eosinophils (%) (Auto) 0 % (0-3) Basophils (%) (Auto) 1 % (0-3) Neutrophils # (Auto) 1.9 x10^3/uL (1.8-7.7) Lymphocytes # (Auto) 1.0 x10^3/uL (1.0-4.8) Monocytes # (Auto) 0.7 x10^3/uL (0.0-1.1) Eosinophils # (Auto) 0.0 x10^3/uL (0.0-0.7) Basophils # (Auto) 0.0 x10^3/uL (0.0-0.2) Sodium Level 138 mmol/L (136-145) Potassium Level 4.6 mmol/L (3.5-5.1) Chloride Level 98 mmol/L (98-107) Carbon Dioxide Level 29 mmol/L (21-32) Anion Gap 11 (6-14) Blood Urea Nitrogen 16 mg/dL (8-26) Creatinine 1.6 mg/dL (0.7-1.3) Estimated GFR (Cockcroft-Gault) 52.3 BUN/Creatinine Ratio 10 (6-20) Glucose Level 104 mg/dL (70-99) Lactic Acid Level 1.5 mmol/L (0.4-2.0) Calcium Level 9.2 mg/dL (8.5-10.1) Magnesium Level 2.2 mg/dL (1.8-2.4) Total Bilirubin 0.6 mg/dL (0.2-1.0) Aspartate Amino Transf (AST/SGOT) 28 U/L (15-37) Alanine Aminotransferase (ALT/SGPT) 23 U/L (16-63) Alkaline Phosphatase 65 U/L (46-116) Creatine Kinase 300 U/L (39-308) Creatine Kinase MB (Mass) 1.1 ng/mL (0.0-3.6) Creatine Kinase MB Relative Index 0.4 % (0-4) Troponin I Quantitative < 0.017 ng/mL (0.000-0.055) Total Protein 7.8 g/dL (6.4-8.2) Albumin 3.6 g/dL (3.4-5.0) Albumin/Globulin Ratio 0.9 (1.0-1.7) Lipase 75 U/L (73-393) Images Images REASON: ABNORMAL CHEST X-RAY. PROCEDURE: CT CHEST WO CONTRAST Indication chronic shortness of breath. Noncontrast imaging through the chest was performed. No prior CT imaging of the chest is available. Imaging through the upper abdomen shows no acute finding. There is a 1 cm mass in the left kidney likely reflecting a cyst. There is moderate plaquing associated with the thoracic aorta. Some coronary artery calcification is noted. There is a possible mass associated with the left lobe of the thyroid. The finding is not certain. If additional evaluation of the thyroid is warranted ultrasound could be performed. No significant mediastinal or hilar adenopathy isn't seen. There is mild hyperexpansion of the lungs. Advanced emphysematous changes are not seen. There is a small nodule peripherally in the left upper lobe, image 19 series 2 with an additional nodule slightly more caudally in the left upper lobe, image 24. Both of these nodules measure 3 to 4 millimeters in greatest dimension. An additional nodule is seen peripherally at the left lung base measuring approximately 4 mm. An acute parenchymal infiltrate is not seen. Significant pleural fluid is not present. IMPRESSION: No definite acute process seen in the chest. Moderate hyperexpansion. 2 nodules in the left upper lobe each measuring approximately 3 to 4 mm in greatest dimension. An additional nodule is seen in the left lower lobe, image 59, measuring approximately 4 mm. Follow-up imaging along the lines of the Fleischner criteria advised. Nodules detected incidentally at non-screening CT Nodule size (mm) less than or equal to 4 Low Risk patients- no follow-up needed High Risk patients- follow-up at 12 months and if no change, no further imaging needed. Nodule size > 4-6 mm Low risk patients- follow- up at 12 months and if no change, no further imaging needed High risk patients- initial follow-up CT at 6-12 months and then at 18-24 months if no change. Nodule Size > 6-8 mm Low risk patients- initial follow-up CT at 6-12 months and then at 18-24 months if no change. High risk patients- initial follow- up CT at 3-6 months and then at 9-12 months if no change, Nodule Size >8 mm Either low or high risk patients: Follow-up CT at around 3, 9 and [address], PET, and/or biopsy Note: newly detected indeterminate nodule in person 35 years of age or older. Low risk patients- minimal or absent history of smoking and/or other known risk factors. High risk patients- history of smoking or of other known risk factors. PQRS Compliance Statement: One or more of the following individualized dose reduction techniques were utilized for this examination: 1. Automated exposure control 2. Adjustment of the mA and/or kV according to patient size 3. Use of iterative reconstruction technique DICTATED and SIGNED BY: ZAINAB MCLEAN MD DATE: 08/16/17 1505 CC: ANAYA CORTES MD; SAMARA GARCIA MD ~ CT CHEST ABD PELVIS W/CONTRAST Clinical Indication: Cough, periumbilical pain COMPARISON: CT chest 12/16/2016 TECHNIQUE: Multiple contiguous axial images were obtained throughout the chest, abdomen, and pelvis with the use of IV contrast. Axial images were reformatted into coronal and sagittal planes. 60 mL Omnipaque 300 was administered. One or more of the following dose reduction techniques were utilized: Automated exposure control (AEC), Adjustment of mA and/or kV according to patient size, Use of iterative reconstruction technique such as ASiR, CT scan done according to ALARA and image gently/image wisely. Chest Findings: Left thyroid nodule measuring 2.7 cm. There is no axillary, mediastinal, or hilar adenopathy. Atherosclerosis of the thoracic aorta. The cardiac size is normal. Coronary artery atherosclerotic disease. There is no pericardial effusion. The central airways are patent. There is no focal consolidation. Stable small pulmonary nodules with healthcare representative nodules as follows: left upper lobe nodule measuring 0.5 cm (series 2 image 17) and left lower lobe nodule measuring 0.3 cm (image 56). Centrilobular emphysema. No pleural effusion is observed. There is no pneumothorax. Abdomen findings: The liver, gallbladder, pancreas, and adrenal glands are unremarkable. Calcified splenic granulomas. 1.3 cm left renal cyst. No hydronephrosis There is no significant mesenteric or retroperitoneal adenopathy identified. There is no evidence of free intraperitoneal fluid or pneumoperitoneum. Visualized portions of the bowel are grossly unremarkable. Diffuse aortoiliac atherosclerotic disease. Pelvis findings: The bladder and distal ureters are unremarkable. There is no significant pelvic ascites. No significant iliac or inguinal adenopathy is identified. Multilevel degenerative changes of the spine. IMPRESSION: 1. No pulmonary mass or consolidation. 2. No acute abdominal process. 3. Left thyroid nodule measuring 2.7 cm should be further characterized with nonemergent thyroid ultrasound, if not performed previously. Electronically signed by: Rosa Bo MD (10/17/2019 5:39 PM) [facility] DICTATED and SIGNED BY: ROSA BO MD DATE: 10/17/19 1733 VTE Prophylaxis Ordered VTE Prophylaxis Devices: Yes VTE Pharmacological Prophylaxi: Yes Assessment/Plan Assessment/Plan IMPRESSION: 1. No pulmonary mass or consolidation. on ct 2. No acute abdominal process. BY CT 10/17 3. Left thyroid nodule measuring 2.7 cm should be further characterized with nonemergent thyroid ultrasound, if not performed previously. 4. intractable abdominal pain// abnormal weight loss 5. lactic acidosis 6. ACUTE RENAL INJURY, LIKELTY VASOMOTOR NEPHROPATHY 7. Centrilobular emphysema. No pleural effusion is observed. There is no pneumothorax. ON CT CHEST 10/17 8. REMOTE TOBACCO ABUSE plan admit iv fluid support GI CONSULT TSH DUONEBS QID PRN IV ZOFRAN 4 MG Q 4 HRS PRN NEPHROLOGY CONSULT UA 57 MIN PT EXAM, CHART REVIEW, > 50% of time spent with exam, chart review, pt care coordination SHAHRAM BHATIA MD Oct 17, 2019 18:29
[2019-10-17] MEDS ORDERED: ACETAMINOPHEN 650 MG/20.3 ML SOLUTION. GT PRN (18:30)
[2019-10-17] MEDS ORDERED: 0.9 % SODIUM CHLORIDE 10 ML DISP.SYRIN. IV PRN (18:30)
[2019-10-17] MEDS ORDERED: DOCUSATE SODIUM 100 MG CAPSULE. PO PRN (18:30)
[2019-10-17] MEDS ORDERED: cloNIDine HCL 0.1 MG TABLET PO PRN (18:30)
[2019-10-17] MEDS ORDERED: ALBUTEROL SULFATE 2.5 MG/3 ML NEBU. NEB PRN (18:30)
[2019-10-17] MEDS ORDERED: ONDANSETRON PF 4 MG/2 ML VIAL. IV PRN ×2 (18:30)
[2019-10-17 23:00] VITALS: BP 169/77
[2019-10-18] MEDS: IV NORMAL SALINE 1000ML BAG 1,000 ML IV SCH ×3 (02:29→14:58)
[2019-10-18 03:33] VITALS: BP 134/80
--- NOTE | 2019-10-18 05:53 | EKG ---
[facility] [address] [place] [address] Test Date: 2019-10-17 Test Time: 16:41:06 Pat Name: TACO POWER Department: Room: 658 1 Gender: Male [employer]unch [employer] Operator: : 1950 Requested By: RANJIT DINH Order Number: [id number] Reading MD: Fredi Horta Measurements Intervals [place] Rate: 81 P: 79 AK: 110 QRS: 80 QRSD: 74 T: 71 QT: 348 QTc: 405 Interpretive Statements SINUS RHYTHM ATRIAL PREMATURE COMPLEX(ES) Electronically Signed On 10-23-2019 15:08:48 WEB PUBLISHER by Fredi Horta
[2019-10-18 07:00] VITALS: BP 161/95
[2019-10-18 07:34] LABS: BILIRUBIN,URINE NEGATIVE (NEG); CLARITY,URINE CLEAR; COLOR,URINE YELLOW; NITRITE,URINE NEGATIVE (NEG); PH,URINE 5.5; PROTEIN,URINE NEGATIVE (NEG-TRACE)
[2019-10-18 07:51] LABS: SQUAMOUS EPITHELIAL CELL,UR FEW /LPF
[2019-10-18 07:52] LABS: BACTERIA,URINE 0 /HPF (0-FEW); HYALINE CASTS, URINE OCCASIONAL /HPF; RBC,URINE 0 /HPF (0-2); WBC,URINE OCC /HPF (0-4)
--- NOTE | 2019-10-18 09:04 | PDOC2 ---
GI CONSULT Reason For Consult: Abd pain, vomiting HPI: HPI: 69 y/o male. Lower abd pain ("just a pain when I cough") began 3-4 days ago w/ decreased appetite. Then coughing began - productive, "green." Associated w/ dizziness and weakness. Denies reflux/heartburn (though initially described some sort of previous cardiac eval @ [facility] for "heart pain" when I asked about heartburn), dysphagia, n/v, diarrhea, constipation, hematochezia, or melena. Has probably lost weight, maybe 20 pounds, unclear timing - also says "I've always been a small andreea and lots of times I just drink beer instead of eating." Appetite is better now - ate all of breakfast. No c/o abd pain per nurse. 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 No GB, liver, or pancreas history. No NSAIDs. Takes ASA and hydrocodone. Says he was "messin' around with a girl" and would like to be checked for STDs. PMH: PMH: CAD w/ stents, VT, HTN, HLD, COPD FH: Family History: Cancer (brother - unknown kind) Social History: Smoke: Quit ALCOHOL: heavy (usually daily - 3-6 beers - none since Wednesday) Drugs: Cocaine (not since ) ROS: GEN: Denies fevers, chills, sweats HEENT: Denies blurred vision, sore throat CV: Denies chest pain RESP: +shortness of air, cough GI: Per HPI : Denies hematuria, dysuria ENDO: +weight loss NEURO: +dizziness MSK: +weakness SKIN: Denies jaundice, pruritus Vitals: Vitals: Vital Signs Date Time Temp Pulse Resp B/P (MAP) Pulse Ox O2 Delivery O2 Flow Rate FiO2 10/18/19 08:38 98 Nasal Cannula 2.0 10/18/19 07:00 97.5 59 18 161/95 (117) 97.5 Labs: Labs: Laboratory Tests Test 10/17/19 16:04 10/17/19 21:15 10/18/19 00:40 White Blood Count 3.6 x10^3/uL (4.0-11.0) Red Blood Count 5.14 x10^6/uL (4.30-5.70) Hemoglobin 15.6 g/dL (13.0-17.5) Hematocrit 47.3 % (39.0-53.0) Mean Corpuscular Volume 92 fL (79-100) Mean Corpuscular Hemoglobin 30 pg (25-35) Mean Corpuscular Hemoglobin Concent 33 g/dL (31-37) Red Cell Distribution Width 14.4 % (11.5-14.5) Platelet Count 206 x10^3/uL (140-400) Neutrophils (%) (Auto) 52 % (31-73) Lymphocytes (%) (Auto) 29 % (24-48) Monocytes (%) (Auto) 18 % (0-9) Eosinophils (%) (Auto) 0 % (0-3) Basophils (%) (Auto) 1 % (0-3) Neutrophils # (Auto) 1.9 x10^3/uL (1.8-7.7) Lymphocytes # (Auto) 1.0 x10^3/uL (1.0-4.8) Monocytes # (Auto) 0.7 x10^3/uL (0.0-1.1) Eosinophils # (Auto) 0.0 x10^3/uL (0.0-0.7) Basophils # (Auto) 0.0 x10^3/uL (0.0-0.2) Sodium Level 138 mmol/L (136-145) Potassium Level 4.6 mmol/L (3.5-5.1) Chloride Level 98 mmol/L (98-107) Carbon Dioxide Level 29 mmol/L (21-32) Anion Gap 11 (6-14) Blood Urea Nitrogen 16 mg/dL (8-26) Creatinine 1.6 mg/dL (0.7-1.3) Estimated GFR (Cockcroft-Gault) 52.3 BUN/Creatinine Ratio 10 (6-20) Glucose Level 104 mg/dL (70-99) Lactic Acid Level 1.5 mmol/L (0.4-2.0) Calcium Level 9.2 mg/dL (8.5-10.1) Magnesium Level 2.2 mg/dL (1.8-2.4) Total Bilirubin 0.6 mg/dL (0.2-1.0) Aspartate Amino Transf (AST/SGOT) 28 U/L (15-37) Alanine Aminotransferase (ALT/SGPT) 23 U/L (16-63) Alkaline Phosphatase 65 U/L (46-116) Creatine Kinase 300 U/L (39-308) Creatine Kinase MB (Mass) 1.1 ng/mL (0.0-3.6) Creatine Kinase MB Relative Index 0.4 % (0-4) Troponin I Quantitative < 0.017 ng/mL (0.000-0.055) < 0.017 ng/mL (0.000-0.055) < 0.017 ng/mL (0.000-0.055) Total Protein 7.8 g/dL (6.4-8.2) Albumin 3.6 g/dL (3.4-5.0) Albumin/Globulin Ratio 0.9 (1.0-1.7) Lipase 75 U/L (73-393) Allergies: Coded Allergies: No Known Drug Allergies (Unverified , 11/08/18) Medications: Current Medications Medications (Trade) Dose Ordered Sig/Candace Route PRN Reason Start Time Stop Time Status Last Admin Dose Admin Sodium Chloride 1,000 ml @ 1,000 mls/hr 1X ONCE IV 10/17/19 16:15 10/17/19 17:14 DC 10/17/19 17:16 Famotidine (Pepcid Vial) 20 mg 1X ONCE IVP 10/17/19 16:15 10/17/19 16:19 DC 10/17/19 17:16 Ketorolac Tromethamine (Toradol 15mg Vial) 10 mg 1X ONCE IVP 10/17/19 16:15 10/17/19 16:19 DC 10/17/19 17:16 Dexamethasone Sodium Phosphate (Decadron) 10 mg 1X ONCE IVP 10/17/19 16:15 10/17/19 16:19 DC 10/17/19 17:17 Albuterol/ Ipratropium (Duoneb) 3 ml 1X ONCE NEB 10/17/19 16:15 10/17/19 16:19 DC 10/17/19 16:23 Iohexol (Omnipaque 300 Mg/ml) 75 ml 1X ONCE IV 10/17/19 16:45 10/17/19 16:46 DC 10/17/19 17:04 Sodium Chloride 1,000 ml @ 100 mls/hr Q10H IV 10/17/19 18:26 10/18/19 03:05 Albuterol Sulfate (Ventolin Neb Soln) 2.5 mg PRN Q4HRS PRN NEB SHORTNESS OF BREATH 10/17/19 18:30 10/18/19 08:34 Sodium Chloride 1,000 ml @ 1,000 mls/hr 1X ONCE IV 10/17/19 18:30 10/17/19 19:29 DC 10/17/19 21:01 Imaging: Imaging: C/A/P CT 10/17 IMPRESSION: 1. No pulmonary mass or consolidation. 2. No acute abdominal process. 3. Left thyroid nodule measuring 2.7 cm should be further characterized with nonemergent thyroid ultrasound, if not performed previously. PE: GEN: NAD,quite talkative HEENT: Atraumatic, PERRL LUNGS: NC 2L, coughing, diminished anteriorly - just had breathing tx HEART: RRR ABD: NABS, S/ND, ?MSK tenderness just below/right of umbilicus EXTREMITY: No edema SKIN: No rashes, no jaundice NEURO/PSYCH: A & O 3 A/P: A/P: SOA, cough, h/o COPD - per Dr. Calhoun Leukopenia, MONET Abd pain - ?MSK - occurs when coughing but began before cough Decreased appetite - resolved Remote h/o "ulcer" CRC screen - UTD Thyroid nodule, concern for STD - defer to Dr. Calhoun -- Will review w/ Dr. Redding - ?MSK pain. Will add acid-poultry packer for recent change in appetite (though ate well this morning) and ulcer history. SINA NICKERSON Oct 18, 2019 09:04
[2019-10-18] MEDS ORDERED: AMLO5TAB10 PO (10:37)
[2019-10-18] MEDS ORDERED: HYDR-2763 PO (10:40)
[2019-10-18 11:00] VITALS: BP 134/74
[2019-10-18] MEDS: PANTOPRAZOLE 40 MG TABLET.DR. PO SCH (11:13)
--- NOTE | 2019-10-18 11:30 | PDOC ---
PROGRESS NOTES History of Present Illness History of Present Illness VTE Prophylaxis Ordered VTE Prophylaxis Devices: Yes VTE Pharmacological Prophylaxi: Yes Assessment/Plan Assessment/Plan IMPRESSION: 1. No pulmonary mass or consolidation. on ct 2. No acute abdominal process. BY CT 10/17 3. Left thyroid nodule measuring 2.7 cm should be further characterized with nonemergent thyroid ultrasound, if not performed previously. 4. intractable abdominal pain// abnormal weight loss 5. lactic acidosis 6. ACUTE RENAL INJURY, LIKELTY VASOMOTOR NEPHROPATHY 7. Centrilobular emphysema. No pleural effusion is observed. There is no pneumothorax. ON CT CHEST 10/17 8. REMOTE TOBACCO ABUSE plan admit iv fluid support GI CONSULT TSH DUONEBS QID PRN IV ZOFRAN 4 MG Q 4 HRS PRN NEPHROLOGY CONSULT UA Discharge Recommendations * Long Term Unit 39 MIN PT EXAM, CHART REVIEW, > 50% of time spent with exam, chart review, pt care coordination Vitals Vitals Vital Signs Date Time Temp Pulse Resp B/P (MAP) Pulse Ox O2 Delivery O2 Flow Rate FiO2 10/18/19 11:00 97.7 71 16 134/74 (94) 100 Nasal Cannula 2.0 97.7 Physical Exam General: Alert, Oriented X3, Cooperative, No acute distress Heart: Regular rate Lungs: Other (few wheezes) Abdomen: Normal bowel sounds, Soft, Other (MILD TENDERNESS) Extremities: No cyanosis Labs LABS Laboratory Tests Test 10/17/19 16:04 10/17/19 21:15 10/18/19 00:40 White Blood Count 3.6 x10^3/uL (4.0-11.0) Red Blood Count 5.14 x10^6/uL (4.30-5.70) Hemoglobin 15.6 g/dL (13.0-17.5) Hematocrit 47.3 % (39.0-53.0) Mean Corpuscular Volume 92 fL (79-100) Mean Corpuscular Hemoglobin 30 pg (25-35) Mean Corpuscular Hemoglobin Concent 33 g/dL (31-37) Red Cell Distribution Width 14.4 % (11.5-14.5) Platelet Count 206 x10^3/uL (140-400) Neutrophils (%) (Auto) 52 % (31-73) Lymphocytes (%) (Auto) 29 % (24-48) Monocytes (%) (Auto) 18 % (0-9) Eosinophils (%) (Auto) 0 % (0-3) Basophils (%) (Auto) 1 % (0-3) Neutrophils # (Auto) 1.9 x10^3/uL (1.8-7.7) Lymphocytes # (Auto) 1.0 x10^3/uL (1.0-4.8) Monocytes # (Auto) 0.7 x10^3/uL (0.0-1.1) Eosinophils # (Auto) 0.0 x10^3/uL (0.0-0.7) Basophils # (Auto) 0.0 x10^3/uL (0.0-0.2) Sodium Level 138 mmol/L (136-145) Potassium Level 4.6 mmol/L (3.5-5.1) Chloride Level 98 mmol/L (98-107) Carbon Dioxide Level 29 mmol/L (21-32) Anion Gap 11 (6-14) Blood Urea Nitrogen 16 mg/dL (8-26) Creatinine 1.6 mg/dL (0.7-1.3) Estimated GFR (Cockcroft-Gault) 52.3 BUN/Creatinine Ratio 10 (6-20) Glucose Level 104 mg/dL (70-99) Lactic Acid Level 1.5 mmol/L (0.4-2.0) Calcium Level 9.2 mg/dL (8.5-10.1) Magnesium Level 2.2 mg/dL (1.8-2.4) Total Bilirubin 0.6 mg/dL (0.2-1.0) Aspartate Amino Transf (AST/SGOT) 28 U/L (15-37) Alanine Aminotransferase (ALT/SGPT) 23 U/L (16-63) Alkaline Phosphatase 65 U/L (46-116) Creatine Kinase 300 U/L (39-308) Creatine Kinase MB (Mass) 1.1 ng/mL (0.0-3.6) Creatine Kinase MB Relative Index 0.4 % (0-4) Troponin I Quantitative < 0.017 ng/mL (0.000-0.055) < 0.017 ng/mL (0.000-0.055) < 0.017 ng/mL (0.000-0.055) Total Protein 7.8 g/dL (6.4-8.2) Albumin 3.6 g/dL (3.4-5.0) Albumin/Globulin Ratio 0.9 (1.0-1.7) Lipase 75 U/L (73-393) Assessment and Plan Assessmemt and Plan Problems Medical Problems: (1) Acute renal insufficiency Status: Acute (2) COPD exacerbation Status: Acute (3) Dehydration Status: Acute (4) Generalized weakness Status: Acute Other Information * PT will recommend SNU today to address concerns with gait, strength, balance, and mobility endurance affecting safety and functional independence. PT anticipates pt will be able to go home with PT pending progress. Rehab Potential to Achieve Goals * Fair Learning Preferences * Audio * Demonstration * Discussion Factors Facilitating Goal Achievement * Prior level of function * Response to training Problem List (body system elements) * Impaired fnctnl mobility * Strength * Balance * Respiration/perfusion * Age * Knowledge-safe techniques * Knowledge-COPD Management * Skin Integrity * Pain Clinical Presentation * Evolving Evaluation Complexity Level * Moderate Complexity Pt/caregiver agrees with plan of care/goals * Yes Patient condition at conclusion of therapy * Pt in bed * Call light in reach * Phone in reach * PtIn no apparent distress * Pt denies further needs Communicated Patient Care With (Name, Title) * FELICIA Sosa Goal 3 - Ambulation Assistance Required * Independent Goal 3 - Ambulation Distance * 100' Goal 3 - Ambulation Device * No Device Treatment Plan * Therapeutic Exercise * Gait Training * Body Mechanics Training * Dynamic Balance Training Frequency of Treatment Expected * 6 visits/week Duration of Treatment Expected * 1 week Discharge Recommendations * Long Term Unit Discharge Recommendation Comments * SNU today; pending progress Home with Home Health PT Comment Review of Relevant I have reviewed the following items jaron (where applicable) has been applied. Labs Laboratory Tests Test 10/17/19 07:10 10/17/19 16:04 10/17/19 21:15 10/18/19 00:40 Urine Collection Type Unknown Urine Color Yellow Urine Clarity Clear Urine pH 5.5 Urine Specific [place] 1.025 Urine Protein Negative mg/dL (NEG-TRACE) Urine Glucose (UA) 500 mg/dL (NEG) Urine Ketones (Stick) Negative mg/dL (NEG) Urine Blood Negative (NEG) Urine Nitrite Negative (NEG) Urine Bilirubin Negative (NEG) Urine Urobilinogen Dipstick 1.0 mg/dL (0.2 mg/dL) Urine Leukocyte Esterase Negative (NEG) Urine RBC 0 /HPF (0-2) Urine WBC Occ /HPF (0-4) Urine Squamous Epithelial Cells Few /LPF Urine Bacteria 0 /HPF (0-FEW) Urine Hyaline Casts Occasional /HPF Urine Mucus Slight /LPF White Blood Count 3.6 x10^3/uL (4.0-11.0) Red Blood Count 5.14 x10^6/uL (4.30-5.70) Hemoglobin 15.6 g/dL (13.0-17.5) Hematocrit 47.3 % (39.0-53.0) Mean Corpuscular Volume 92 fL (79-100) Mean Corpuscular Hemoglobin 30 pg (25-35) Mean Corpuscular Hemoglobin Concent 33 g/dL (31-37) Red Cell Distribution Width 14.4 % (11.5-14.5) Platelet Count 206 x10^3/uL (140-400) Neutrophils (%) (Auto) 52 % (31-73) Lymphocytes (%) (Auto) 29 % (24-48) Monocytes (%) (Auto) 18 % (0-9) Eosinophils (%) (Auto) 0 % (0-3) Basophils (%) (Auto) 1 % (0-3) Neutrophils # (Auto) 1.9 x10^3/uL (1.8-7.7) Lymphocytes # (Auto) 1.0 x10^3/uL (1.0-4.8) Monocytes # (Auto) 0.7 x10^3/uL (0.0-1.1) Eosinophils # (Auto) 0.0 x10^3/uL (0.0-0.7) Basophils # (Auto) 0.0 x10^3/uL (0.0-0.2) Sodium Level 138 mmol/L (136-145) Potassium Level 4.6 mmol/L (3.5-5.1) Chloride Level 98 mmol/L (98-107) Carbon Dioxide Level 29 mmol/L (21-32) Anion Gap 11 (6-14) Blood Urea Nitrogen 16 mg/dL (8-26) Creatinine 1.6 mg/dL (0.7-1.3) Estimated GFR (Cockcroft-Gault) 52.3 BUN/Creatinine Ratio 10 (6-20) Glucose Level 104 mg/dL (70-99) Lactic Acid Level 1.5 mmol/L (0.4-2.0) Calcium Level 9.2 mg/dL (8.5-10.1) Magnesium Level 2.2 mg/dL (1.8-2.4) Total Bilirubin 0.6 mg/dL (0.2-1.0) Aspartate Amino Transf (AST/SGOT) 28 U/L (15-37) Alanine Aminotransferase (ALT/SGPT) 23 U/L (16-63) Alkaline Phosphatase 65 U/L (46-116) Creatine Kinase 300 U/L (39-308) Creatine Kinase MB (Mass) 1.1 ng/mL (0.0-3.6) Creatine Kinase MB Relative Index 0.4 % (0-4) Troponin I Quantitative < 0.017 ng/mL (0.000-0.055) < 0.017 ng/mL (0.000-0.055) < 0.017 ng/mL (0.000-0.055) Total Protein 7.8 g/dL (6.4-8.2) Albumin 3.6 g/dL (3.4-5.0) Albumin/Globulin Ratio 0.9 (1.0-1.7) Lipase 75 U/L (73-393) Laboratory Tests Test 10/17/19 16:04 10/17/19 21:15 10/18/19 00:40 White Blood Count 3.6 x10^3/uL (4.0-11.0) Red Blood Count 5.14 x10^6/uL (4.30-5.70) Hemoglobin 15.6 g/dL (13.0-17.5) Hematocrit 47.3 % (39.0-53.0) Mean Corpuscular Volume 92 fL (79-100) Mean Corpuscular Hemoglobin 30 pg (25-35) Mean Corpuscular Hemoglobin Concent 33 g/dL (31-37) Red Cell Distribution Width 14.4 % (11.5-14.5) Platelet Count 206 x10^3/uL (140-400) Neutrophils (%) (Auto) 52 % (31-73) Lymphocytes (%) (Auto) 29 % (24-48) Monocytes (%) (Auto) 18 % (0-9) Eosinophils (%) (Auto) 0 % (0-3) Basophils (%) (Auto) 1 % (0-3) Neutrophils # (Auto) 1.9 x10^3/uL (1.8-7.7) Lymphocytes # (Auto) 1.0 x10^3/uL (1.0-4.8) Monocytes # (Auto) 0.7 x10^3/uL (0.0-1.1) Eosinophils # (Auto) 0.0 x10^3/uL (0.0-0.7) Basophils # (Auto) 0.0 x10^3/uL (0.0-0.2) Sodium Level 138 mmol/L (136-145) Potassium Level 4.6 mmol/L (3.5-5.1) Chloride Level 98 mmol/L (98-107) Carbon Dioxide Level 29 mmol/L (21-32) Anion Gap 11 (6-14) Blood Urea Nitrogen 16 mg/dL (8-26) Creatinine 1.6 mg/dL (0.7-1.3) Estimated GFR (Cockcroft-Gault) 52.3 BUN/Creatinine Ratio 10 (6-20) Glucose Level 104 mg/dL (70-99) Lactic Acid Level 1.5 mmol/L (0.4-2.0) Calcium Level 9.2 mg/dL (8.5-10.1) Magnesium Level 2.2 mg/dL (1.8-2.4) Total Bilirubin 0.6 mg/dL (0.2-1.0) Aspartate Amino Transf (AST/SGOT) 28 U/L (15-37) Alanine Aminotransferase (ALT/SGPT) 23 U/L (16-63) Alkaline Phosphatase 65 U/L (46-116) Creatine Kinase 300 U/L (39-308) Creatine Kinase MB (Mass) 1.1 ng/mL (0.0-3.6) Creatine Kinase MB Relative Index 0.4 % (0-4) Troponin I Quantitative < 0.017 ng/mL (0.000-0.055) < 0.017 ng/mL (0.000-0.055) < 0.017 ng/mL (0.000-0.055) Total Protein 7.8 g/dL (6.4-8.2) Albumin 3.6 g/dL (3.4-5.0) Albumin/Globulin Ratio 0.9 (1.0-1.7) Lipase 75 U/L (73-393) Medications Current Medications Sodium Chloride 1,000 ml @ 1,000 mls/hr 1X ONCE IV Last administered on 10/17/19at 17:16; Start 10/17/19 at 16:15; Stop 10/17/19 at 17:14; Status DC Famotidine (Pepcid Vial) 20 mg 1X ONCE IVP Last administered on 10/17/19at 17:16; Start 10/17/19 at 16:15; Stop 10/17/19 at 16:19; Status DC Ketorolac Tromethamine (Toradol 15mg Vial) 10 mg 1X ONCE IVP Last administered on 10/17/19at 17:16; Start 10/17/19 at 16:15; Stop 10/17/19 at 16:19; Status DC Dexamethasone Sodium Phosphate (Decadron) 10 mg 1X ONCE IVP Last administered on 10/17/19at 17:17; Start 10/17/19 at 16:15; Stop 10/17/19 at 16:19; Status DC Albuterol/ Ipratropium (Duoneb) 3 ml 1X ONCE NEB Last administered on 10/17/19at 16:23; Start 10/17/19 at 16:15; Stop 10/17/19 at 16:19; Status DC Iohexol (Omnipaque 300 Mg/ml) 75 ml 1X ONCE IV Last administered on 10/17/19at 17:04; Start 10/17/19 at 16:45; Stop 10/17/19 at 16:46; Status DC Info (CONTRAST GIVEN -- Rx MONITORING) 1 each PRN DAILY PRN MC SEE COMMENTS; Start 10/17/19 at 16:45; Stop 10/19/19 at 16:44 Sodium Chloride (Normal Saline Flush) 3 ml QSHIFT PRN IV AFTER MEDS AND BLOOD DRAWS; Start 10/17/19 at 18:30 Sodium Chloride 1,000 ml @ 100 mls/hr Q10H IV Last administered on 10/18/19at 03:05; Start 10/17/19 at 18:26 Ondansetron HCl (Zofran) 4 mg PRN Q4HRS PRN IV NAUSEA/VOMITING; Start 10/17/19 at 18:30 Acetaminophen (Tylenol) 650 mg PRN Q4HRS PRN GT TEMP OVER 100.4F OR MILD PAIN; Start 10/17/19 at 18:30 Clonidine HCl (Catapres) 0.1 mg PRN Q6HRS PRN PO SBP>160 OR DBP>90; Start 10/17/19 at 18:30 Docusate Sodium (Colace) 100 mg PRN BID PRN PO CONSTIPATION; Start 10/17/19 at 18:30 Albuterol Sulfate (Ventolin Neb Soln) 2.5 mg PRN Q4HRS PRN NEB SHORTNESS OF BREATH Last administered on 10/18/19at 08:34; Start 10/17/19 at 18:30 Guaifenesin (Robitussin) 200 mg PRN Q4HRS PRN PO COUGH; Start 10/17/19 at 18:30 Lorazepam (Ativan) 0.5 mg PRN Q4HRS PRN PO ANXIETY / AGITATION; Start 10/17/19 at 18:30 Sodium Chloride 1,000 ml @ 1,000 mls/hr 1X ONCE IV Last administered on at 21:01; Start 10/17/19 at 18:30; Stop 10/17/19 at 19:29; Status DC Ondansetron HCl (Zofran) 4 mg PRN Q8HRS PRN IV NAUSEA/VOMITING; Start 10/17/19 at 18:30; Stop 10/18/19 at 18:29 Pantoprazole Sodium (Protonix) 40 mg DAILYAC PO Last administered on 10/18/19at 11:13; Start 10/18/19 at 10:30 Active Scripts Active Doxycycline Hyclate 100 Mg Tablet 100 Mg PO BID Prednisone 50 Mg Tablet 50 Mg PO DAILY 7 Days Flagyl (Metronidazole) 500 Mg Tablet 1 Tab PO BID Proair Hfa Inhaler (Albuterol Sulfate) 8.5 Gm Hfa.aer.ad 1 Puff INH PRN Q6HRS PRN Tessalon Perle (Benzonatate) 100 Mg Capsule 100 Mg PO TID PRN Zithromax (Azithromycin) 250 Mg Tablet 1 Pkg PO UD Reported Hydrocodone-Acetamin 7.5-325 (Hydrocodone/Acetaminophen) 1 Each Tablet 1 Each PO PRN Q8HRS PRN Amlodipine Besylate 5 Mg Tablet 5 Mg PO DAILY Vitals/I & O Vital Sign - Last 24 Hours 10/17/19 10/17/19 10/17/19 10/17/19 15:56 16:24 16:40 16:50 Temp 98.4 98.4 Pulse 76 83 91 Resp 18 18 18 B/P (MAP) 112/64 (80) 124/84 (97) 104/71 (82) Pulse Ox 94 97 97 95 O2 Delivery Room Air Room Air Room Air Room Air 10/17/19 10/17/19 10/17/19 10/17/19 17:30 18:03 19:30 20:30 Pulse 69 70 80 78 Resp 18 18 18 18 B/P (MAP) 142/90 (107) 144/83 (103) 153/104 (120) 134/85 (101) Pulse Ox 92 98 98 95 O2 Delivery Room Air Room Air Room Air Room Air 10/17/19 10/17/19 10/17/19 10/17/19 21:30 22:30 23:00 23:26 Temp 97.6 97.6 Pulse 69 70 51 Resp 20 18 22 B/P (MAP) 141/69 (93) 145/100 (115) 169/77 (107) Pulse Ox 96 97 92 O2 Delivery Room Air Room Air Room Air Nasal Cannula O2 Flow Rate 2.0 10/17/19 10/18/19 10/18/19 10/18/19 23:30 03:33 07:00 08:38 Temp 97.7 97.5 97.7 97.5 Pulse 71 60 59 Resp 18 16 18 B/P (MAP) 140/70 (93) 134/80 (98) 161/95 (117) Pulse Ox 96 100 96 98 O2 Delivery Room Air Nasal Cannula Nasal Cannula Nasal Cannula O2 Flow Rate 2.0 2.0 2.0 10/18/19 11:00 Temp 97.7 97.7 Pulse 71 Resp 16 B/P (MAP) 134/74 (94) Pulse Ox 100 O2 Delivery Nasal Cannula O2 Flow Rate 2.0 Intake and Output 10/17/19 10/17/19 10/18/19 15:00 23:00 07:00 Intake Total 2000 ml 100 ml Balance 2000 ml 100 ml Nutrition Consultation Dietary Evaluation: Recommendations by RD: Dietary education by RD, Increase Calorie Intake, Prot ein supplementation Comments: ensure bid Expected Outcomes/Goals: to meet >75% est nutr needs via meals and supplements Interpretation of weight loss: >1-2% in 1 week Malnutrition Findings: Food and Nutrition Intake (Sev: <50% est energy req 5days Weight Status: Underweight SHAHRAM BHATIA MD Oct 18, 2019 11:30
--- NOTE | 2019-10-18 11:49 | PDOC ---
PULMONARY PROGRESS NOTES Vitals Vital Signs Date Time Temp Pulse Resp B/P (MAP) Pulse Ox O2 Delivery O2 Flow Rate FiO2 10/18/19 11:00 97.7 71 16 134/74 (94) 100 Nasal Cannula 2.0 97.7 Labs Laboratory Tests Test 10/17/19 07:10 10/17/19 16:04 10/17/19 21:15 10/18/19 00:40 Urine Collection Type Unknown Urine Color Yellow Urine Clarity Clear Urine pH 5.5 Urine Specific [place] 1.025 Urine Protein Negative mg/dL (NEG-TRACE) Urine Glucose (UA) 500 mg/dL (NEG) Urine Ketones (Stick) Negative mg/dL (NEG) Urine Blood Negative (NEG) Urine Nitrite Negative (NEG) Urine Bilirubin Negative (NEG) Urine Urobilinogen Dipstick 1.0 mg/dL (0.2 mg/dL) Urine Leukocyte Esterase Negative (NEG) Urine RBC 0 /HPF (0-2) Urine WBC Occ /HPF (0-4) Urine Squamous Epithelial Cells Few /LPF Urine Bacteria 0 /HPF (0-FEW) Urine Hyaline Casts Occasional /HPF Urine Mucus Slight /LPF White Blood Count 3.6 x10^3/uL (4.0-11.0) Red Blood Count 5.14 x10^6/uL (4.30-5.70) Hemoglobin 15.6 g/dL (13.0-17.5) Hematocrit 47.3 % (39.0-53.0) Mean Corpuscular Volume 92 fL (79-100) Mean Corpuscular Hemoglobin 30 pg (25-35) Mean Corpuscular Hemoglobin Concent 33 g/dL (31-37) Red Cell Distribution Width 14.4 % (11.5-14.5) Platelet Count 206 x10^3/uL (140-400) Neutrophils (%) (Auto) 52 % (31-73) Lymphocytes (%) (Auto) 29 % (24-48) Monocytes (%) (Auto) 18 % (0-9) Eosinophils (%) (Auto) 0 % (0-3) Basophils (%) (Auto) 1 % (0-3) Neutrophils # (Auto) 1.9 x10^3/uL (1.8-7.7) Lymphocytes # (Auto) 1.0 x10^3/uL (1.0-4.8) Monocytes # (Auto) 0.7 x10^3/uL (0.0-1.1) Eosinophils # (Auto) 0.0 x10^3/uL (0.0-0.7) Basophils # (Auto) 0.0 x10^3/uL (0.0-0.2) Sodium Level 138 mmol/L (136-145) Potassium Level 4.6 mmol/L (3.5-5.1) Chloride Level 98 mmol/L (98-107) Carbon Dioxide Level 29 mmol/L (21-32) Anion Gap 11 (6-14) Blood Urea Nitrogen 16 mg/dL (8-26) Creatinine 1.6 mg/dL (0.7-1.3) Estimated GFR (Cockcroft-Gault) 52.3 BUN/Creatinine Ratio 10 (6-20) Glucose Level 104 mg/dL (70-99) Lactic Acid Level 1.5 mmol/L (0.4-2.0) Calcium Level 9.2 mg/dL (8.5-10.1) Magnesium Level 2.2 mg/dL (1.8-2.4) Total Bilirubin 0.6 mg/dL (0.2-1.0) Aspartate Amino Transf (AST/SGOT) 28 U/L (15-37) Alanine Aminotransferase (ALT/SGPT) 23 U/L (16-63) Alkaline Phosphatase 65 U/L (46-116) Creatine Kinase 300 U/L (39-308) Creatine Kinase MB (Mass) 1.1 ng/mL (0.0-3.6) Creatine Kinase MB Relative Index 0.4 % (0-4) Troponin I Quantitative < 0.017 ng/mL (0.000-0.055) < 0.017 ng/mL (0.000-0.055) < 0.017 ng/mL (0.000-0.055) Total Protein 7.8 g/dL (6.4-8.2) Albumin 3.6 g/dL (3.4-5.0) Albumin/Globulin Ratio 0.9 (1.0-1.7) Lipase 75 U/L (73-393) Laboratory Tests Test 10/17/19 16:04 10/17/19 21:15 10/18/19 00:40 White Blood Count 3.6 x10^3/uL (4.0-11.0) Red Blood Count 5.14 x10^6/uL (4.30-5.70) Hemoglobin 15.6 g/dL (13.0-17.5) Hematocrit 47.3 % (39.0-53.0) Mean Corpuscular Volume 92 fL (79-100) Mean Corpuscular Hemoglobin 30 pg (25-35) Mean Corpuscular Hemoglobin Concent 33 g/dL (31-37) Red Cell Distribution Width 14.4 % (11.5-14.5) Platelet Count 206 x10^3/uL (140-400) Neutrophils (%) (Auto) 52 % (31-73) Lymphocytes (%) (Auto) 29 % (24-48) Monocytes (%) (Auto) 18 % (0-9) Eosinophils (%) (Auto) 0 % (0-3) Basophils (%) (Auto) 1 % (0-3) Neutrophils # (Auto) 1.9 x10^3/uL (1.8-7.7) Lymphocytes # (Auto) 1.0 x10^3/uL (1.0-4.8) Monocytes # (Auto) 0.7 x10^3/uL (0.0-1.1) Eosinophils # (Auto) 0.0 x10^3/uL (0.0-0.7) Basophils # (Auto) 0.0 x10^3/uL (0.0-0.2) Sodium Level 138 mmol/L (136-145) Potassium Level 4.6 mmol/L (3.5-5.1) Chloride Level 98 mmol/L (98-107) Carbon Dioxide Level 29 mmol/L (21-32) Anion Gap 11 (6-14) Blood Urea Nitrogen 16 mg/dL (8-26) Creatinine 1.6 mg/dL (0.7-1.3) Estimated GFR (Cockcroft-Gault) 52.3 BUN/Creatinine Ratio 10 (6-20) Glucose Level 104 mg/dL (70-99) Lactic Acid Level 1.5 mmol/L (0.4-2.0) Calcium Level 9.2 mg/dL (8.5-10.1) Magnesium Level 2.2 mg/dL (1.8-2.4) Total Bilirubin 0.6 mg/dL (0.2-1.0) Aspartate Amino Transf (AST/SGOT) 28 U/L (15-37) Alanine Aminotransferase (ALT/SGPT) 23 U/L (16-63) Alkaline Phosphatase 65 U/L (46-116) Creatine Kinase 300 U/L (39-308) Creatine Kinase MB (Mass) 1.1 ng/mL (0.0-3.6) Creatine Kinase MB Relative Index 0.4 % (0-4) Troponin I Quantitative < 0.017 ng/mL (0.000-0.055) < 0.017 ng/mL (0.000-0.055) < 0.017 ng/mL (0.000-0.055) Total Protein 7.8 g/dL (6.4-8.2) Albumin 3.6 g/dL (3.4-5.0) Albumin/Globulin Ratio 0.9 (1.0-1.7) Lipase 75 U/L (73-393) Medications Active Scripts Medications Dose Route/Sig Max Daily Dose Days Date Category Hydrocodone-Acetamin 7.5-325 (Hydrocodone/Acetaminophen) 1 Each Tablet 1 Each PO PRN Q8HRS PRN 10/18/19 Reported Amlodipine Besylate 5 Mg Tablet 5 Mg PO DAILY 10/18/19 Reported Doxycycline Hyclate 100 Mg Tablet 100 Mg PO BID 11/08/18 Rx Prednisone 50 Mg Tablet 50 Mg PO DAILY 7 11/08/18 Rx Flagyl (Metronidazole) 500 Mg Tablet 1 Tab PO BID 11/05/18 Rx Proair Hfa Inhaler (Albuterol Sulfate) 8.5 Gm Hfa.aer.ad 1 Puff INH PRN Q6HRS PRN 10/20/16 Rx Tessalon Perle (Benzonatate) 100 Mg Capsule 100 Mg PO TID PRN 10/20/16 Rx Zithromax (Azithromycin) 250 Mg Tablet 1 Pkg PO UD 10/20/16 Rx Impression . A/C RESP FAILURE AECOPD PULMMONARY NODULES AGREE WITH CURRENT RX FOLLOW UP IN OFFICE ONCE DC CT CHEST There is no focal consolidation. Stable small pulmonary nodules with technical support representative nodules as follows: left upper lobe nodule measuring 0.5 cm (series 2 image 17) and left lower lobe nodule measuring 0.3 cm (image 56). Centrilobular emphysema. No pleural effusion is observed. There is no pneumothorax. SAMARA GARCIA MD Oct 18, 2019 11:49
--- NOTE | 2019-10-18 12:55 | CONS ---
DATE OF CONSULTATION: 10/18/2019 ATTENDING PHYSICIAN: Edward Calhoun MD. REASON FOR CONSULTATION: The patient seen in pulmonary consultation at the request of Dr. Calhoun for respiratory distress. HISTORY OF PRESENT ILLNESS: The patient is a 69-year-old with a history of tobacco use, quit 18 years ago, has been on oxygen supplementation for approximately 10 months, does not experience acute exacerbations on a frequent basis. He could not recall the last time he was admitted for COPD exacerbation. The patient presented with a 2-3 day history of increasing shortness of air, coughing, weak. He was coughing. He was also weak. He was unable to tolerate activities of daily living. He was admitted. I was asked to see him in consultation. He has had a CT chest, which revealed no pulmonary masses or consolidation. There was a left upper lobe nodule measuring 0.5 cm. There was a left lower lobe nodule measuring 0.3 cm. PAST MEDICAL HISTORY: 1. Chronic respiratory failure, COPD, tobacco dependence, in remission. 2. Hyperlipidemia. 3. Coronary artery disease with previous myocardial infarction and stenting. 4. Hypertension. PAST SURGICAL HISTORY: No recent major surgeries. FAMILY HISTORY: No family history of early lung disorders. 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 Occasional use of alcohol. ALLERGIES: No known drug allergies. REVIEW OF SYSTEMS: CONSTITUTIONAL: No fever or chills. EYES: No change in visual acuity. HENT: No nasal congestion or sore throat. PULMONARY: As indicated above. CARDIOVASCULAR: No chest pain. No pressure. GASTROINTESTINAL: No nausea, vomiting or diarrhea. GENITOURINARY: No dysuria or frequency. MUSCULOSKELETAL: No localized muscle aches or joint pains. SKIN: No new skin rashes. NEUROLOGIC: No headaches, diplopia or blurred vision. PHYSICAL EXAMINATION: VITAL SIGNS: On 2 liters of oxygen supplementation, the patient's saturations were above 92%. HEENT: Eyes, the sclerae were nonicteric. NECK: Jugular venous distention was not elevated. No lymphadenopathy. CHEST: Full expansion. LUNGS: Very poor airway flow with no wheezes. CARDIOVASCULAR: Regular rate and rhythm with S1, S2, no S3. ABDOMEN: Soft, nontender, nondistended. EXTREMITIES: No clubbing, cyanosis or edema. NEUROLOGICAL: The patient was awake, alert, following commands. A detailed neuro exam was not performed. LABORATORY DATA: Reviewed. White count was normal, hemoglobin and hematocrit were noted. Electrolytes were noted. UA was noted. IMPRESSION: 1. Acute on chronic hypoxemic respiratory failure. 2. Acute exacerbation of chronic obstructive pulmonary disease. 3. Abnormal CT chest revealing pulmonary nodules. 4. Tobacco dependence, in remission. 5. Left thyroid nodule. PLAN: 1. From a pulmonary standpoint of view, the patient is doing well. Recommend continue medical management. 2. Follow up in my office once discharged. 3. Repeat CT chest in 6 months. 4. Continue oxygen supplementation, nebulized treatments. 5. DVT and GI prophylaxis. I do appreciate the privilege in sharing in the patient's care. SAMARA GARCIA MD DR: ROBERTO/nts JOB#: [id number] / [id number]
[2019-10-18] MEDS ORDERED: IPRATRPIUM/ALBUTEROL 0.5/2.5MG 3 ML NEBU. NEB SCH (14:00)
[2019-10-18 14:15] LABS: ALBUMIN 3.2 g/dL (3.4-5.0); CALCIUM 8.1 mg/dL (8.5-10.1); CREATININE 1.3 mg/dL (0.7-1.3); GFR 66.4; PHOSPHORUS 3.6 mg/dL (2.6-4.7); POTASSIUM 4.8 mmol/L (3.5-5.1)
[2019-10-18] MEDS: BENZONATATE 100 MG CAPSULE. PO PRN (14:58)
[2019-10-18] MEDS: guaiFENesin ORAL 200 MG/10 ML LIQUID. PO PRN ×2 (14:58→21:17)
[2019-10-18 15:00] VITALS: BP 158/81
--- NOTE | 2019-10-18 15:04 | NUR ---
SW consulted regarding recent decline functional status. Chart reviewed and discussed with RN. Pt lives alone at [facility]. Attempted to meet with pt 3x today but pt on phone and requested SWer to return. Spoke with PT, recommends SNU today but anticipate dc with home health. Pt uses o2 @2l at home. SW will continue to follow.
[2019-10-18] MEDS: IPRATRPIUM/ALBUTEROL 0.5/2.5MG 3 ML NEBU. NEB SCH ×2 (16:24→20:43)
[2019-10-18 19:30] VITALS: BP 133/84
[2019-10-18] MEDS: LORazepam 0.5 MG TABLET PO PRN (21:17)
[2019-10-18] MEDS: guaiFENesin DM 600/30MG 1 TAB TAB.ER.12H PO SCH (21:17)
[2019-10-18] MEDS: HYDROcodone/APAP 7.5/325MG 1 TAB TABLET PO PRN (21:18)
[2019-10-18 23:49] VITALS: BP 141/83
[2019-10-19] MEDS: IV NORMAL SALINE 1000ML BAG 1,000 ML IV SCH ×3 (00:58→19:46)
[2019-10-19 03:45] VITALS: BP 164/86
[2019-10-19] MEDS: guaiFENesin ORAL 200 MG/10 ML LIQUID. PO PRN ×2 (05:15→17:20)
[2019-10-19] MEDS: PANTOPRAZOLE 40 MG TABLET.DR. PO SCH (05:15)
[2019-10-19] MEDS: HYDROcodone/APAP 7.5/325MG 1 TAB TABLET PO PRN ×2 (05:15→13:16)
[2019-10-19] MEDS: LORazepam 0.5 MG TABLET PO PRN (05:15)
--- NOTE | 2019-10-19 06:38 | RAD ---
Indication: Thyroid nodule TECHNIQUE: Grayscale, color Doppler images of COMPARISON: None FINDINGS: The right thyroid lobe measures 1.7 x 4.4 x 1.2 cm and is homogeneous in echogenicity without focal lesion. The left thyroid lobe measures 4.8 x 3.0 x 2.2 cm with a simple cyst measuring 2.5 x 4.4 x 2.1 cm. Isthmus measures 3 mm in thickness and is within normal limits. IMPRESSION: Left thyroid lobe simple cyst. Electronically signed by: Fer Edmondson DO (10/19/2019 6:34 AM) [facility]
[2019-10-19 07:00] VITALS: BP 151/84
[2019-10-19 07:08] LABS: BASO % 0 % (0-3); EOS % 1 % (0-3); HEMATOCRIT 37.5 % (39.0-53.0); HEMOGLOBIN 12.3 g/dL (13.0-17.5); LYMPH # 0.9 x10^3/uL (1.0-4.8); LYMPH % 22 % (24-48); MEAN CORPUSCULAR HEMOGLOBIN 30 pg (25-35); MEAN CORPUSCULAR HGB CONC 33 g/dL (31-37); MEAN CORPUSCULAR VOLUME 92 fL (79-100); MONO # 0.4 x10^3/uL (0.0-1.1); MONO % 9 % (0-9); NEUT # 2.8 x10^3/uL (1.8-7.7); NEUT % 68 % (31-73); PLATELET COUNT 158 x10^3/uL (140-400); RED BLOOD COUNT 4.07 x10^6/uL (4.30-5.70); RED CELL DISTRIBUTION WIDTH 14.5 % (11.5-14.5); WHITE BLOOD COUNT 4.1 x10^3/uL (4.0-11.0)
[2019-10-19 07:28] LABS: ALBUMIN 2.7 g/dL (3.4-5.0); ALBUMIN/GLOBULIN RATIO 0.8 (1.0-1.7); CALCIUM 7.5 mg/dL (8.5-10.1); CREATININE 0.8 mg/dL (0.7-1.3); GFR 116.3; POTASSIUM 3.8 mmol/L (3.5-5.1); TOTAL BILIRUBIN 0.3 mg/dL (0.2-1.0); TOTAL PROTEIN 5.9 g/dL (6.4-8.2)
[2019-10-19] MEDS: IPRATRPIUM/ALBUTEROL 0.5/2.5MG 3 ML NEBU. NEB SCH ×4 (07:29→19:42)
--- NOTE | 2019-10-19 08:29 | PDOC ---
PULMONARY PROGRESS NOTES Subjective PT FEELS LESS SOA STILL COUGH WEAK WHEN HE STAND UP AND AT TIMES DIZZY Vitals Vital Signs Date Time Temp Pulse Resp B/P (MAP) Pulse Ox O2 Delivery O2 Flow Rate FiO2 10/19/19 07:29 99 Nasal Cannula 2.0 10/19/19 07:00 98.3 69 18 151/84 (106) 98.3 ROS: No Nausea, No Chest Pain, No Abdominal Pain, No Increase Cough General: Alert Lungs: Other (POOR AIRFLOW) Cardiovascular: S1, S2 Abdomen: Soft Neuro Exam: Alert Extremities: No Edema Skin: Warm Labs Laboratory Tests Test 10/17/19 16:04 10/17/19 21:15 10/18/19 00:40 10/19/19 05:55 White Blood Count 3.6 x10^3/uL (4.0-11.0) 4.1 x10^3/uL (4.0-11.0) Red Blood Count 5.14 x10^6/uL (4.30-5.70) 4.07 x10^6/uL (4.30-5.70) Hemoglobin 15.6 g/dL (13.0-17.5) 12.3 g/dL (13.0-17.5) Hematocrit 47.3 % (39.0-53.0) 37.5 % (39.0-53.0) Mean Corpuscular Volume 92 fL (79-100) 92 fL (79-100) Mean Corpuscular Hemoglobin 30 pg (25-35) 30 pg (25-35) Mean Corpuscular Hemoglobin Concent 33 g/dL (31-37) 33 g/dL (31-37) Red Cell Distribution Width 14.4 % (11.5-14.5) 14.5 % (11.5-14.5) Platelet Count 206 x10^3/uL (140-400) 158 x10^3/uL (140-400) Neutrophils (%) (Auto) 52 % (31-73) 68 % (31-73) Lymphocytes (%) (Auto) 29 % (24-48) 22 % (24-48) Monocytes (%) (Auto) 18 % (0-9) 9 % (0-9) Eosinophils (%) (Auto) 0 % (0-3) 1 % (0-3) Basophils (%) (Auto) 1 % (0-3) 0 % (0-3) Neutrophils # (Auto) 1.9 x10^3/uL (1.8-7.7) 2.8 x10^3/uL (1.8-7.7) Lymphocytes # (Auto) 1.0 x10^3/uL (1.0-4.8) 0.9 x10^3/uL (1.0-4.8) Monocytes # (Auto) 0.7 x10^3/uL (0.0-1.1) 0.4 x10^3/uL (0.0-1.1) Eosinophils # (Auto) 0.0 x10^3/uL (0.0-0.7) 0.0 x10^3/uL (0.0-0.7) Basophils # (Auto) 0.0 x10^3/uL (0.0-0.2) 0.0 x10^3/uL (0.0-0.2) Sodium Level 138 mmol/L (136-145) 135 mmol/L (136-145) 140 mmol/L (136-145) Potassium Level 4.6 mmol/L (3.5-5.1) 4.8 mmol/L (3.5-5.1) 3.8 mmol/L (3.5-5.1) Chloride Level 98 mmol/L (98-107) 100 mmol/L (98-107) 106 mmol/L (98-107) Carbon Dioxide Level 29 mmol/L (21-32) 24 mmol/L (21-32) 26 mmol/L (21-32) Anion Gap 11 (6-14) 11 (6-14) 8 (6-14) Blood Urea Nitrogen 16 mg/dL (8-26) 18 mg/dL (8-26) 9 mg/dL (8-26) Creatinine 1.6 mg/dL (0.7-1.3) 1.3 mg/dL (0.7-1.3) 0.8 mg/dL (0.7-1.3) Estimated GFR (Cockcroft-Gault) 52.3 66.4 116.3 BUN/Creatinine Ratio 10 (6-20) 11 (6-20) Glucose Level 104 mg/dL (70-99) 190 mg/dL (70-99) 97 mg/dL (70-99) Lactic Acid Level 1.5 mmol/L (0.4-2.0) Calcium Level 9.2 mg/dL (8.5-10.1) 8.1 mg/dL (8.5-10.1) 7.5 mg/dL (8.5-10.1) Magnesium Level 2.2 mg/dL (1.8-2.4) Total Bilirubin 0.6 mg/dL (0.2-1.0) 0.3 mg/dL (0.2-1.0) Aspartate Amino Transf (AST/SGOT) 28 U/L (15-37) 23 U/L (15-37) Alanine Aminotransferase (ALT/SGPT) 23 U/L (16-63) 19 U/L (16-63) Alkaline Phosphatase 65 U/L (46-116) 48 U/L (46-116) Creatine Kinase 300 U/L (39-308) Creatine Kinase MB (Mass) 1.1 ng/mL (0.0-3.6) Creatine Kinase MB Relative Index 0.4 % (0-4) Troponin I Quantitative < 0.017 ng/mL (0.000-0.055) < 0.017 ng/mL (0.000-0.055) < 0.017 ng/mL (0.000-0.055) Total Protein 7.8 g/dL (6.4-8.2) 5.9 g/dL (6.4-8.2) Albumin 3.6 g/dL (3.4-5.0) 3.2 g/dL (3.4-5.0) 2.7 g/dL (3.4-5.0) Albumin/Globulin Ratio 0.9 (1.0-1.7) 0.8 (1.0-1.7) Lipase 75 U/L (73-393) Phosphorus Level 3.6 mg/dL (2.6-4.7) Free Thyroxine 0.88 ng/dL (0.76-1.46) Laboratory Tests Test 10/19/19 05:55 White Blood Count 4.1 x10^3/uL (4.0-11.0) Red Blood Count 4.07 x10^6/uL (4.30-5.70) Hemoglobin 12.3 g/dL (13.0-17.5) Hematocrit 37.5 % (39.0-53.0) Mean Corpuscular Volume 92 fL (79-100) Mean Corpuscular Hemoglobin 30 pg (25-35) Mean Corpuscular Hemoglobin Concent 33 g/dL (31-37) Red Cell Distribution Width 14.5 % (11.5-14.5) Platelet Count 158 x10^3/uL (140-400) Neutrophils (%) (Auto) 68 % (31-73) Lymphocytes (%) (Auto) 22 % (24-48) Monocytes (%) (Auto) 9 % (0-9) Eosinophils (%) (Auto) 1 % (0-3) Basophils (%) (Auto) 0 % (0-3) Neutrophils # (Auto) 2.8 x10^3/uL (1.8-7.7) Lymphocytes # (Auto) 0.9 x10^3/uL (1.0-4.8) Monocytes # (Auto) 0.4 x10^3/uL (0.0-1.1) Eosinophils # (Auto) 0.0 x10^3/uL (0.0-0.7) Basophils # (Auto) 0.0 x10^3/uL (0.0-0.2) Sodium Level 140 mmol/L (136-145) Potassium Level 3.8 mmol/L (3.5-5.1) Chloride Level 106 mmol/L (98-107) Carbon Dioxide Level 26 mmol/L (21-32) Anion Gap 8 (6-14) Blood Urea Nitrogen 9 mg/dL (8-26) Creatinine 0.8 mg/dL (0.7-1.3) Estimated GFR (Cockcroft-Gault) 116.3 BUN/Creatinine Ratio 11 (6-20) Glucose Level 97 mg/dL (70-99) Calcium Level 7.5 mg/dL (8.5-10.1) Total Bilirubin 0.3 mg/dL (0.2-1.0) Aspartate Amino Transf (AST/SGOT) 23 U/L (15-37) Alanine Aminotransferase (ALT/SGPT) 19 U/L (16-63) Alkaline Phosphatase 48 U/L (46-116) Total Protein 5.9 g/dL (6.4-8.2) Albumin 2.7 g/dL (3.4-5.0) Albumin/Globulin Ratio 0.8 (1.0-1.7) Medications Active Scripts Medications Dose Route/Sig Max Daily Dose Days Date Category Hydrocodone-Acetamin 7.5-325 (Hydrocodone/Acetaminophen) 1 Each Tablet 1 Each PO PRN Q8HRS PRN 10/18/19 Reported Amlodipine Besylate 5 Mg Tablet 5 Mg PO DAILY 10/18/19 Reported Doxycycline Hyclate 100 Mg Tablet 100 Mg PO BID 11/08/18 Rx Prednisone 50 Mg Tablet 50 Mg PO DAILY 7 11/08/18 Rx Flagyl (Metronidazole) 500 Mg Tablet 1 Tab PO BID 11/05/18 Rx Proair Hfa Inhaler (Albuterol Sulfate) 8.5 Gm Hfa.aer.ad 1 Puff INH PRN Q6HRS PRN 10/20/16 Rx Tessalon Perle (Benzonatate) 100 Mg Capsule 100 Mg PO TID PRN 10/20/16 Rx Zithromax (Azithromycin) 250 Mg Tablet 1 Pkg PO UD 10/20/16 Rx Impression . IMPRESSION: 1. Acute on chronic hypoxemic respiratory failure. 2. Acute exacerbation of chronic obstructive pulmonary disease. 3. Abnormal CT chest revealing pulmonary nodules. 4. Tobacco dependence, in remission. 5. Left thyroid nodule. CT CHEST There is no focal consolidation. Stable small pulmonary nodules with investment representative nodules as follows: left upper lobe nodule measuring 0.5 cm (series 2 image 17) and left lower lobe nodule measuring 0.3 cm (image 56). Centrilobular emphysema. No pleural effusion is observed. There is no pneumothorax. Plan . UP TO CHAIR PT EVAL D/W [employer] 1. From a pulmonary standpoint of view, the patient is doing well. Recommend continue medical management. 2. Follow up in my office once discharged. 3. Repeat CT chest in 6 months. 4. Continue oxygen supplementation, nebulized treatments. 5. DVT and GI prophylaxis. SAMARA GARCIA MD Oct 19, 2019 08:29
[2019-10-19] MEDS: BENZONATATE 100 MG CAPSULE. PO PRN (08:58)
[2019-10-19] MEDS: guaiFENesin DM 600/30MG 1 TAB TAB.ER.12H PO SCH ×2 (08:58→21:15)
[2019-10-19] MEDS: amLODIPine BESYLATE 5 MG TABLET PO SCH (08:58)
--- NOTE | 2019-10-19 10:14 | PDOC2 ---
CONSULT Date of Consult Date of Consult DATE: 10/19/19 TIME: 10:11 Reason for Consult Reason for Consult: MONET Source Source: Chart review, Patient History of Present Illness Reason for Visit: Pt is a 69 y/o AA male with a history of COPD, MIx2, HTN who presents to the ED with weakness, cough, and SOB for the past 2 days. Also complains of abdominal pain and dizziness. Denies any urinary complaints. Denies symptoms of RIVERA.States has lost weight .No NSAID s Family History Family History: Hypertension Social History Quit ALCOHOL: heavy (usually daily - 3-6 beers - none since Wednesday) Drugs: Cocaine (not since ) Current Problem List Problem List Problems Medical Problems: (1) Acute renal insufficiency Status: Acute (2) COPD exacerbation Status: Acute (3) Dehydration Status: Acute (4) Generalized weakness Status: Acute Current Medications Current Medications Current Medications Sodium Chloride 1,000 ml @ 1,000 mls/hr 1X ONCE IV Last administered on 10/17/19at 17:16; Start 10/17/19 at 16:15; Stop 10/17/19 at 17:14; Status DC Famotidine (Pepcid Vial) 20 mg 1X ONCE IVP Last administered on 10/17/19at 17 :16; Start 10/17/19 at 16:15; Stop 10/17/19 at 16:19; Status DC Ketorolac Tromethamine (Toradol 15mg Vial) 10 mg 1X ONCE IVP Last administered on 10/17/19at 17:16; Start 10/17/19 at 16:15; Stop 10/17/19 at 16:19; Status DC Dexamethasone Sodium Phosphate (Decadron) 10 mg 1X ONCE IVP Last administered on 10/17/19at 17:17; Start 10/17/19 at 16:15; Stop 10/17/19 at 16:19; Status DC Albuterol/ Ipratropium (Duoneb) 3 ml 1X ONCE NEB Last administered on 10/17/19at 16:23; Start 10/17/19 at 16:15; Stop 10/17/19 at 16:19; Status DC Iohexol (Omnipaque 300 Mg/ml) 75 ml 1X ONCE IV Last administered on 10/17/19at 17:04; Start 10/17/19 at 16:45; Stop 10/17/19 at 16:46; Status DC Info (CONTRAST GIVEN -- Rx MONITORING) 1 each PRN DAILY PRN MC SEE COMMENTS; Start 10/17/19 at 16:45; Stop 10/19/19 at 16:44 Sodium Chloride (Normal Saline Flush) 3 ml QSHIFT PRN IV AFTER MEDS AND BLOOD DRAWS; Start 10/17/19 at 18:30 Sodium Chloride 1,000 ml @ 100 mls/hr Q10H IV Last administered on 10/19/19at 00:58; Start 10/17/19 at 18:26 Ondansetron HCl (Zofran) 4 mg PRN Q4HRS PRN IV NAUSEA/VOMITING; Start 10/17/19 at 18:30 Acetaminophen (Tylenol) 650 mg PRN Q4HRS PRN GT TEMP OVER 100.4F OR MILD PAIN; Start 10/17/19 at 18:30 Clonidine HCl (Catapres) 0.1 mg PRN Q6HRS PRN PO SBP>160 OR DBP>90; Start 10/17/19 at 18:30 Docusate Sodium (Colace) 100 mg PRN BID PRN PO CONSTIPATION; Start 10/17/19 at 18:30 Albuterol Sulfate (Ventolin Neb Soln) 2.5 mg PRN Q4HRS PRN NEB SHORTNESS OF BREATH Last administered on 10/18/19at 08:34; Start 10/17/19 at 18:30 Guaifenesin (Robitussin) 200 mg PRN Q4HRS PRN PO COUGH Last administered on 10/19/19at 05:15; Start 10/17/19 at 18:30 Lorazepam (Ativan) 0.5 mg PRN Q4HRS PRN PO ANXIETY / AGITATION Last administered on 10/19/19at 05:15; Start 10/17/19 at 18:30 Sodium Chloride 1,000 ml @ 1,000 mls/hr 1X ONCE IV Last administered on 10/17/19at 21:01; Start 10/17/19 at 18:30; Stop 10/17/19 at 19:29; Status DC Ondansetron HCl (Zofran) 4 mg PRN Q8HRS PRN IV NAUSEA/VOMITING; Start 10/17/19 at 18:30; Stop 10/18/19 at 13:37; Status DC Pantoprazole Sodium (Protonix) 40 mg DAILYAC PO Last administered on 10/19/19 05:15; Start 10/18/19 at 10:30 Albuterol/ Ipratropium (Duoneb) 3 ml TID NEB Last administered on 10/18/19at 11:48; Start 10/18/19 at 14:00; Stop 10/18/19 at 14:46; Status DC Amlodipine Besylate (Norvasc) 5 mg DAILY PO Last administered on 10/19/19 08:58; Start 10/19/19 at 09:00 Benzonatate (Tessalon Perle) 100 mg PRN TID PRN PO COUGH 1ST CHOICE Last administered on 10/19/19 08:58; Start 10/18/19 at 14:15 Acetaminophen/ Hydrocodone Bitart (Lortab 7.5/325) 1 tab PRN Q8HRS PRN PO MODERATE PAIN 4-6 Last administered on 10/19/19 05:15; Start 10/18/19 at 14:15 Albuterol/ Ipratropium (Duoneb) 3 ml RTQID NEB Last administered on 10/19/19at 07:29; Start 10/18/19 at 16:00 Guaifenesin (MUCINEX ER with DM) 1 tab BID PO Last administered on 10/19/19 08:58; Start 10/18/19 at 21:00 Active Scripts Active Proair Hfa Inhaler (Albuterol Sulfate) 8.5 Gm Hfa.aer.ad 1 Puff INH PRN Q6HRS PRN Tessalon Perle (Benzonatate) 100 Mg Capsule 100 Mg PO TID PRN Reported Hydrocodone-Acetamin 7.5-325 (Hydrocodone/Acetaminophen) 1 Each Tablet 1 Each PO PRN Q8HRS PRN Amlodipine Besylate 5 Mg Tablet 5 Mg PO DAILY Allergies Allergies: Coded Allergies: No Known Drug Allergies (Unverified , 11/08/18) ROS Review of System Per HPI Physical Exam Physical Exam General: Alert, Oriented X3, Cooperative, No acute distress Lungs: Clear to auscultation Heart: RRR Breasts: Not examined Abdomen: Normal bowel sounds, Soft PELVIC: Examination not indicated Extremities: No edema Neuro: Normal speech, Cranial nerves 3-12 NL Vital Signs Vital Signs Date Time Temp Pulse Resp B/P (MAP) Pulse Ox O2 Delivery O2 Flow Rate FiO2 10/19/19 08:58 69 151/84 10/19/19 07:29 99 Nasal Cannula 2.0 10/19/19 07:00 98.3 18 98.3 Assessment & Plan MONET - Pre-renal UA unremarkable, CT scan unremarkable Resolved with IVF Acute on chronic hypoxemic respiratory failure. Acute exacerbation of chronic obstructive pulmonary disease. Abnormal CT chest revealing pulmonary nodules. Labs Labs Laboratory Tests Test 10/17/19 16:04 10/17/19 21:15 10/18/19 00:40 10/19/19 05:55 White Blood Count 3.6 x10^3/uL (4.0-11.0) 4.1 x10^3/uL (4.0-11.0) Red Blood Count 5.14 x10^6/uL (4.30-5.70) 4.07 x10^6/uL (4.30-5.70) Hemoglobin 15.6 g/dL (13.0-17.5) 12.3 g/dL (13.0-17.5) Hematocrit 47.3 % (39.0-53.0) 37.5 % (39.0-53.0) Mean Corpuscular Volume 92 fL (79-100) 92 fL (79-100) Mean Corpuscular Hemoglobin 30 pg (25-35) 30 pg (25-35) Mean Corpuscular Hemoglobin Concent 33 g/dL (31-37) 33 g/dL (31-37) Red Cell Distribution Width 14.4 % (11.5-14.5) 14.5 % (11.5-14.5) Platelet Count 206 x10^3/uL (140-400) 158 x10^3/uL (140-400) Neutrophils (%) (Auto) 52 % (31-73) 68 % (31-73) Lymphocytes (%) (Auto) 29 % (24-48) 22 % (24-48) Monocytes (%) (Auto) 18 % (0-9) 9 % (0-9) Eosinophils (%) (Auto) 0 % (0-3) 1 % (0-3) Basophils (%) (Auto) 1 % (0-3) 0 % (0-3) Neutrophils # (Auto) 1.9 x10^3/uL (1.8-7.7) 2.8 x10^3/uL (1.8-7.7) Lymphocytes # (Auto) 1.0 x10^3/uL (1.0-4.8) 0.9 x10^3/uL (1.0-4.8) Monocytes # (Auto) 0.7 x10^3/uL (0.0-1.1) 0.4 x10^3/uL (0.0-1.1) Eosinophils # (Auto) 0.0 x10^3/uL (0.0-0.7) 0.0 x10^3/uL (0.0-0.7) Basophils # (Auto) 0.0 x10^3/uL (0.0-0.2) 0.0 x10^3/uL (0.0-0.2) Sodium Level 138 mmol/L (136-145) 135 mmol/L (136-145) 140 mmol/L (136-145) Potassium Level 4.6 mmol/L (3.5-5.1) 4.8 mmol/L (3.5-5.1) 3.8 mmol/L (3.5-5.1) Chloride Level 98 mmol/L (98-107) 100 mmol/L (98-107) 106 mmol/L (98-107) Carbon Dioxide Level 29 mmol/L (21-32) 24 mmol/L (21-32) 26 mmol/L (21-32) Anion Gap 11 (6-14) 11 (6-14) 8 (6-14) Blood Urea Nitrogen 16 mg/dL (8-26) 18 mg/dL (8-26) 9 mg/dL (8-26) Creatinine 1.6 mg/dL (0.7-1.3) 1.3 mg/dL (0.7-1.3) 0.8 mg/dL (0.7-1.3) Estimated GFR (Cockcroft-Gault) 52.3 66.4 116.3 BUN/Creatinine Ratio 10 (6-20) 11 (6-20) Glucose Level 104 mg/dL (70-99) 190 mg/dL (70-99) 97 mg/dL (70-99) Lactic Acid Level 1.5 mmol/L (0.4-2.0) Calcium Level 9.2 mg/dL (8.5-10.1) 8.1 mg/dL (8.5-10.1) 7.5 mg/dL (8.5-10.1) Magnesium Level 2.2 mg/dL (1.8-2.4) Total Bilirubin 0.6 mg/dL (0.2-1.0) 0.3 mg/dL (0.2-1.0) Aspartate Amino Transf (AST/SGOT) 28 U/L (15-37) 23 U/L (15-37) Alanine Aminotransferase (ALT/SGPT) 23 U/L (16-63) 19 U/L (16-63) Alkaline Phosphatase 65 U/L (46-116) 48 U/L (46-116) Creatine Kinase 300 U/L (39-308) Creatine Kinase MB (Mass) 1.1 ng/mL (0.0-3.6) Creatine Kinase MB Relative Index 0.4 % (0-4) Troponin I Quantitative < 0.017 ng/mL (0.000-0.055) < 0.017 ng/mL (0.000-0.055) < 0.017 ng/mL (0.000-0.055) Total Protein 7.8 g/dL (6.4-8.2) 5.9 g/dL (6.4-8.2) Albumin 3.6 g/dL (3.4-5.0) 3.2 g/dL (3.4-5.0) 2.7 g/dL (3.4-5.0) Albumin/Globulin Ratio 0.9 (1.0-1.7) 0.8 (1.0-1.7) Lipase 75 U/L (73-393) Phosphorus Level 3.6 mg/dL (2.6-4.7) Free Thyroxine 0.88 ng/dL (0.76-1.46) Laboratory Tests Test 10/19/19 05:55 White Blood Count 4.1 x10^3/uL (4.0-11.0) Red Blood Count 4.07 x10^6/uL (4.30-5.70) Hemoglobin 12.3 g/dL (13.0-17.5) Hematocrit 37.5 % (39.0-53.0) Mean Corpuscular Volume 92 fL (79-100) Mean Corpuscular Hemoglobin 30 pg (25-35) Mean Corpuscular Hemoglobin Concent 33 g/dL (31-37) Red Cell Distribution Width 14.5 % (11.5-14.5) Platelet Count 158 x10^3/uL (140-400) Neutrophils (%) (Auto) 68 % (31-73) Lymphocytes (%) (Auto) 22 % (24-48) Monocytes (%) (Auto) 9 % (0-9) Eosinophils (%) (Auto) 1 % (0-3) Basophils (%) (Auto) 0 % (0-3) Neutrophils # (Auto) 2.8 x10^3/uL (1.8-7.7) Lymphocytes # (Auto) 0.9 x10^3/uL (1.0-4.8) Monocytes # (Auto) 0.4 x10^3/uL (0.0-1.1) Eosinophils # (Auto) 0.0 x10^3/uL (0.0-0.7) Basophils # (Auto) 0.0 x10^3/uL (0.0-0.2) Sodium Level 140 mmol/L (136-145) Potassium Level 3.8 mmol/L (3.5-5.1) Chloride Level 106 mmol/L (98-107) Carbon Dioxide Level 26 mmol/L (21-32) Anion Gap 8 (6-14) Blood Urea Nitrogen 9 mg/dL (8-26) Creatinine 0.8 mg/dL (0.7-1.3) Estimated GFR (Cockcroft-Gault) 116.3 BUN/Creatinine Ratio 11 (6-20) Glucose Level 97 mg/dL (70-99) Calcium Level 7.5 mg/dL (8.5-10.1) Total Bilirubin 0.3 mg/dL (0.2-1.0) Aspartate Amino Transf (AST/SGOT) 23 U/L (15-37) Alanine Aminotransferase (ALT/SGPT) 19 U/L (16-63) Alkaline Phosphatase 48 U/L (46-116) Total Protein 5.9 g/dL (6.4-8.2) Albumin 2.7 g/dL (3.4-5.0) Albumin/Globulin Ratio 0.8 (1.0-1.7) Review All relevant outside records, renal labs, imaging studies, telemetry/EKG's were reviewed. Images Images CT chest and abdomen-WITH CONTRAST The liver, gallbladder, pancreas, and adrenal glands are unremarkable. Calcified splenic granulomas. 1.3 cm left renal cyst. No hydronephrosis There is no significant mesenteric or retroperitoneal adenopathy identified. There is no evidence of free intraperitoneal fluid or pneumoperitoneum. Visualized portions of the bowel are grossly unremarkable. Diffuse aortoiliac atherosclerotic disease. Pelvis findings: The bladder and distal ureters are unremarkable. There is no significant pelvic ascites. No significant iliac or inguinal adenopathy is identified. Multilevel degenerative changes of the spine. IMPRESSION: 1. No pulmonary mass or consolidation. 2. No acute abdominal process. 3. Left thyroid nodule measuring 2.7 cm should be further characterized with nonemergent thyroid ultrasound, if not performed previously. MIKE DAVIS MD Oct 19, 2019 10:14
[2019-10-19 11:00] VITALS: BP 130/82
--- NOTE | 2019-10-19 12:20 | PDOC ---
Subjective: Subjective: Eating okay, has stooled. Abdomen is sore when he coughs. Feels weak. Objective: Vital Signs: Vital Signs Date Time Temp Pulse Resp B/P (MAP) Pulse Ox O2 Delivery O2 Flow Rate FiO2 10/19/19 11:10 Nasal Cannula 2.0 10/19/19 11:00 97.6 64 18 130/82 (98) 99 97.6 Labs: Laboratory Tests Test 10/19/19 05:55 White Blood Count 4.1 x10^3/uL Red Blood Count 4.07 x10^6/uL Hemoglobin 12.3 g/dL Hematocrit 37.5 % Mean Corpuscular Volume 92 fL Mean Corpuscular Hemoglobin 30 pg Mean Corpuscular Hemoglobin Concent 33 g/dL Red Cell Distribution Width 14.5 % Platelet Count 158 x10^3/uL Neutrophils (%) (Auto) 68 % Lymphocytes (%) (Auto) 22 % Monocytes (%) (Auto) 9 % Eosinophils (%) (Auto) 1 % Basophils (%) (Auto) 0 % Neutrophils # (Auto) 2.8 x10^3/uL Lymphocytes # (Auto) 0.9 x10^3/uL Monocytes # (Auto) 0.4 x10^3/uL Eosinophils # (Auto) 0.0 x10^3/uL Basophils # (Auto) 0.0 x10^3/uL Sodium Level 140 mmol/L Potassium Level 3.8 mmol/L Chloride Level 106 mmol/L Carbon Dioxide Level 26 mmol/L Anion Gap 8 Blood Urea Nitrogen 9 mg/dL Creatinine 0.8 mg/dL Estimated GFR (Cockcroft-Gault) 116.3 BUN/Creatinine Ratio 11 Glucose Level 97 mg/dL Calcium Level 7.5 mg/dL Total Bilirubin 0.3 mg/dL Aspartate Amino Transf (AST/SGOT) 23 U/L Alanine Aminotransferase (ALT/SGPT) 19 U/L Alkaline Phosphatase 48 U/L Total Protein 5.9 g/dL Albumin 2.7 g/dL Albumin/Globulin Ratio 0.8 PE: GEN: NAD LUNGS: CTAB HEART: RRR ABD: tender NEURO/PSYCH: A & O 3 A/P: COPD exacerbation, pulm nodules Abd pain - likely MSK, related to coughing -- Continue same per GI. SINA NICKERSON Oct 19, 2019 12:20
--- NOTE | 2019-10-19 13:38 | PDOC ---
PROGRESS NOTES History of Present Illness History of Present Illness VTE Prophylaxis Ordered VTE Prophylaxis Devices: Yes VTE Pharmacological Prophylaxi: Yes Assessment/Plan Assessment/Plan IMPRESSION: 1. No pulmonary mass or consolidation. on ct 2. No acute abdominal process. BY CT 10/17 3. Left thyroid nodule measuring 2.7 cm should be further characterized with nonemergent thyroid ultrasound, if not performed previously. 4. intractable abdominal pain// abnormal weight loss 5. lactic acidosis 6. ACUTE RENAL INJURY, LIKELTY VASOMOTOR NEPHROPATHY 7. Centrilobular emphysema. No pleural effusion is observed. There is no pneumothorax. ON CT CHEST 10/17 8. REMOTE TOBACCO ABUSE plan admit iv fluid support GI CONSULT TSH DUONEBS QID PRN IV ZOFRAN 4 MG Q 4 HRS PRN NEPHROLOGY CONSULT UA Discharge Recommendations * Detention Unit * * * STILL WEAK AND DIZZY WITH STANDING 29 MIN PT EXAM, CHART REVIEW, > 50% of time spent with exam, chart review, pt care coordination Vitals Vitals Vital Signs Date Time Temp Pulse Resp B/P (MAP) Pulse Ox O2 Delivery O2 Flow Rate FiO2 10/19/19 13:16 19 99 Nasal Cannula 2.0 10/19/19 11:00 97.6 64 130/82 (98) 97.6 Physical Exam General: Alert, Oriented X3, Cooperative, No acute distress Heart: Regular rate Lungs: Other (few wheezes) Abdomen: Normal bowel sounds, Soft, Other (MILD TENDERNESS) Extremities: No cyanosis Labs LABS N DATE: 10/18/19 [facility] LAB *LIVE* PAGE 1 RUN TIME: 2120 Specimen Inquiry PATIENT: TACO POWER ACCT: [id number] LOC: [address] [place] [address] U: [id number] AGE/SX: 69/M ROOM: [facility] RE10/17/[address]: SHAHRAM BHATIA MD : 1950 BED: 1 DIS: STATUS: ADM IN TLOC: SPEC #: [id number] JAVI: 10/17/19 STATUS: RES REQ #: [id number] RECD: 10/17/[address]: SHAHRAM BHATIA MD SOURCE: BLOOD ENTR: 10/17/[address]: RANJIT IGLESIAS MD SPDC: SAJI DOVE NP, MICHAEL R DO ORDERED: BCULT Procedure Result BLOOD CULTURE Preliminary NO GROWTH AFTER 1 DAY Indication: Thyroid nodule TECHNIQUE: Grayscale, color Doppler images of COMPARISON: None FINDINGS: The right thyroid lobe measures 1.7 x 4.4 x 1.2 cm and is homogeneous in echogenicity without focal lesion. The left thyroid lobe measures 4.8 x 3.0 x 2.2 cm with a simple cyst measuring 2.5 x 4.4 x 2.1 cm. Isthmus measures 3 mm in thickness and is within normal limits. IMPRESSION: Left thyroid lobe simple cyst. Electronically signed by: Fer Edmondson DO (10/19/2019 6:34 AM) [facility] [id number] DICTATED and SIGNED BY: FER EDMONDSON DO DATE: 10/19/19 0634 Laboratory Tests Test 10/19/19 05:55 White Blood Count 4.1 x10^3/uL (4.0-11.0) Red Blood Count 4.07 x10^6/uL (4.30-5.70) Hemoglobin 12.3 g/dL (13.0-17.5) Hematocrit 37.5 % (39.0-53.0) Mean Corpuscular Volume 92 fL (79-100) Mean Corpuscular Hemoglobin 30 pg (25-35) Mean Corpuscular Hemoglobin Concent 33 g/dL (31-37) Red Cell Distribution Width 14.5 % (11.5-14.5) Platelet Count 158 x10^3/uL (140-400) Neutrophils (%) (Auto) 68 % (31-73) Lymphocytes (%) (Auto) 22 % (24-48) Monocytes (%) (Auto) 9 % (0-9) Eosinophils (%) (Auto) 1 % (0-3) Basophils (%) (Auto) 0 % (0-3) Neutrophils # (Auto) 2.8 x10^3/uL (1.8-7.7) Lymphocytes # (Auto) 0.9 x10^3/uL (1.0-4.8) Monocytes # (Auto) 0.4 x10^3/uL (0.0-1.1) Eosinophils # (Auto) 0.0 x10^3/uL (0.0-0.7) Basophils # (Auto) 0.0 x10^3/uL (0.0-0.2) Sodium Level 140 mmol/L (136-145) Potassium Level 3.8 mmol/L (3.5-5.1) Chloride Level 106 mmol/L (98-107) Carbon Dioxide Level 26 mmol/L (21-32) Anion Gap 8 (6-14) Blood Urea Nitrogen 9 mg/dL (8-26) Creatinine 0.8 mg/dL (0.7-1.3) Estimated GFR (Cockcroft-Gault) 116.3 BUN/Creatinine Ratio 11 (6-20) Glucose Level 97 mg/dL (70-99) Calcium Level 7.5 mg/dL (8.5-10.1) Total Bilirubin 0.3 mg/dL (0.2-1.0) Aspartate Amino Transf (AST/SGOT) 23 U/L (15-37) Alanine Aminotransferase (ALT/SGPT) 19 U/L (16-63) Alkaline Phosphatase 48 U/L (46-116) Total Protein 5.9 g/dL (6.4-8.2) Albumin 2.7 g/dL (3.4-5.0) Albumin/Globulin Ratio 0.8 (1.0-1.7) Assessment and Plan Assessmemt and Plan Problems Medical Problems: (1) Acute renal insufficiency Status: Acute (2) COPD exacerbation Status: Acute (3) Dehydration Status: Acute (4) Generalized weakness Status: Acute home at this time. Rehab Potential to Achieve Goals * Fair Learning Preferences * Audio * Demonstration * Discussion Factors Facilitating Goal Achievement * Prior level of function * Response to training Problem List (body system elements) * Impaired fnctnl mobility * Strength * Balance * Respiration/perfusion * Age * Knowledge-safe techniques * Knowledge-COPD Management * Skin Integrity * Pain Pt/caregiver agrees with plan of care/goals * Yes Patient condition at conclusion of therapy * Pt in bed * Call light in reach * Phone in reach * PtIn no apparent distress * Pt denies further needs Communicated Patient Care With (Name, Title) * Floresita RN; LEONEL Fabian Goal 3 - Ambulation Assistance Required * Independent Goal 3 - Ambulation Distance * 100' Goal 3 - Ambulation Device * No Device Goal 3 Assessment * Appropriate - Continue Treatment Plan * Therapeutic Exercise * Gait Training * Body Mechanics Training * Dynamic Balance Training Frequency of Treatment Expected * 6 visits/week Duration of Treatment Expected * 1 week Discharge Recommendations * Detention Unit Discharge Recommendation Comments * SNU today; pending progress Home with Home Health PT Comment Review of Relevant I have reviewed the following items jaron (where applicable) has been applied. Labs Laboratory Tests Test 10/17/19 16:04 10/17/19 21:15 10/18/19 00:40 10/19/19 05:55 White Blood Count 3.6 x10^3/uL (4.0-11.0) 4.1 x10^3/uL (4.0-11.0) Red Blood Count 5.14 x10^6/uL (4.30-5.70) 4.07 x10^6/uL (4.30-5.70) Hemoglobin 15.6 g/dL (13.0-17.5) 12.3 g/dL (13.0-17.5) Hematocrit 47.3 % (39.0-53.0) 37.5 % (39.0-53.0) Mean Corpuscular Volume 92 fL (79-100) 92 fL (79-100) Mean Corpuscular Hemoglobin 30 pg (25-35) 30 pg (25-35) Mean Corpuscular Hemoglobin Concent 33 g/dL (31-37) 33 g/dL (31-37) Red Cell Distribution Width 14.4 % (11.5-14.5) 14.5 % (11.5-14.5) Platelet Count 206 x10^3/uL (140-400) 158 x10^3/uL (140-400) Neutrophils (%) (Auto) 52 % (31-73) 68 % (31-73) Lymphocytes (%) (Auto) 29 % (24-48) 22 % (24-48) Monocytes (%) (Auto) 18 % (0-9) 9 % (0-9) Eosinophils (%) (Auto) 0 % (0-3) 1 % (0-3) Basophils (%) (Auto) 1 % (0-3) 0 % (0-3) Neutrophils # (Auto) 1.9 x10^3/uL (1.8-7.7) 2.8 x10^3/uL (1.8-7.7) Lymphocytes # (Auto) 1.0 x10^3/uL (1.0-4.8) 0.9 x10^3/uL (1.0-4.8) Monocytes # (Auto) 0.7 x10^3/uL (0.0-1.1) 0.4 x10^3/uL (0.0-1.1) Eosinophils # (Auto) 0.0 x10^3/uL (0.0-0.7) 0.0 x10^3/uL (0.0-0.7) Basophils # (Auto) 0.0 x10^3/uL (0.0-0.2) 0.0 x10^3/uL (0.0-0.2) Sodium Level 138 mmol/L (136-145) 135 mmol/L (136-145) 140 mmol/L (136-145) Potassium Level 4.6 mmol/L (3.5-5.1) 4.8 mmol/L (3.5-5.1) 3.8 mmol/L (3.5-5.1) Chloride Level 98 mmol/L (98-107) 100 mmol/L (98-107) 106 mmol/L (98-107) Carbon Dioxide Level 29 mmol/L (21-32) 24 mmol/L (21-32) 26 mmol/L (21-32) Anion Gap 11 (6-14) 11 (6-14) 8 (6-14) Blood Urea Nitrogen 16 mg/dL (8-26) 18 mg/dL (8-26) 9 mg/dL (8-26) Creatinine 1.6 mg/dL (0.7-1.3) 1.3 mg/dL (0.7-1.3) 0.8 mg/dL (0.7-1.3) Estimated GFR (Cockcroft-Gault) 52.3 66.4 116.3 BUN/Creatinine Ratio 10 (6-20) 11 (6-20) Glucose Level 104 mg/dL (70-99) 190 mg/dL (70-99) 97 mg/dL (70-99) Lactic Acid Level 1.5 mmol/L (0.4-2.0) Calcium Level 9.2 mg/dL (8.5-10.1) 8.1 mg/dL (8.5-10.1) 7.5 mg/dL (8.5-10.1) Magnesium Level 2.2 mg/dL (1.8-2.4) Total Bilirubin 0.6 mg/dL (0.2-1.0) 0.3 mg/dL (0.2-1.0) Aspartate Amino Transf (AST/SGOT) 28 U/L (15-37) 23 U/L (15-37) Alanine Aminotransferase (ALT/SGPT) 23 U/L (16-63) 19 U/L (16-63) Alkaline Phosphatase 65 U/L (46-116) 48 U/L (46-116) Creatine Kinase 300 U/L (39-308) Creatine Kinase MB (Mass) 1.1 ng/mL (0.0-3.6) Creatine Kinase MB Relative Index 0.4 % (0-4) Troponin I Quantitative < 0.017 ng/mL (0.000-0.055) < 0.017 ng/mL (0.000-0.055) < 0.017 ng/mL (0.000-0.055) Total Protein 7.8 g/dL (6.4-8.2) 5.9 g/dL (6.4-8.2) Albumin 3.6 g/dL (3.4-5.0) 3.2 g/dL (3.4-5.0) 2.7 g/dL (3.4-5.0) Albumin/Globulin Ratio 0.9 (1.0-1.7) 0.8 (1.0-1.7) Lipase 75 U/L (73-393) Phosphorus Level 3.6 mg/dL (2.6-4.7) Free Thyroxine 0.88 ng/dL (0.76-1.46) Laboratory Tests Test 10/19/19 05:55 White Blood Count 4.1 x10^3/uL (4.0-11.0) Red Blood Count 4.07 x10^6/uL (4.30-5.70) Hemoglobin 12.3 g/dL (13.0-17.5) Hematocrit 37.5 % (39.0-53.0) Mean Corpuscular Volume 92 fL (79-100) Mean Corpuscular Hemoglobin 30 pg (25-35) Mean Corpuscular Hemoglobin Concent 33 g/dL (31-37) Red Cell Distribution Width 14.5 % (11.5-14.5) Platelet Count 158 x10^3/uL (140-400) Neutrophils (%) (Auto) 68 % (31-73) Lymphocytes (%) (Auto) 22 % (24-48) Monocytes (%) (Auto) 9 % (0-9) Eosinophils (%) (Auto) 1 % (0-3) Basophils (%) (Auto) 0 % (0-3) Neutrophils # (Auto) 2.8 x10^3/uL (1.8-7.7) Lymphocytes # (Auto) 0.9 x10^3/uL (1.0-4.8) Monocytes # (Auto) 0.4 x10^3/uL (0.0-1.1) Eosinophils # (Auto) 0.0 x10^3/uL (0.0-0.7) Basophils # (Auto) 0.0 x10^3/uL (0.0-0.2) Sodium Level 140 mmol/L (136-145) Potassium Level 3.8 mmol/L (3.5-5.1) Chloride Level 106 mmol/L (98-107) Carbon Dioxide Level 26 mmol/L (21-32) Anion Gap 8 (6-14) Blood Urea Nitrogen 9 mg/dL (8-26) Creatinine 0.8 mg/dL (0.7-1.3) Estimated GFR (Cockcroft-Gault) 116.3 BUN/Creatinine Ratio 11 (6-20) Glucose Level 97 mg/dL (70-99) Calcium Level 7.5 mg/dL (8.5-10.1) Total Bilirubin 0.3 mg/dL (0.2-1.0) Aspartate Amino Transf (AST/SGOT) 23 U/L (15-37) Alanine Aminotransferase (ALT/SGPT) 19 U/L (16-63) Alkaline Phosphatase 48 U/L (46-116) Total Protein 5.9 g/dL (6.4-8.2) Albumin 2.7 g/dL (3.4-5.0) Albumin/Globulin Ratio 0.8 (1.0-1.7) Microbiology 10/17/19 Blood Culture - Preliminary, Resulted NO GROWTH AFTER 1 DAY Medications Current Medications Sodium Chloride 1,000 ml @ 1,000 mls/hr 1X ONCE IV Last administered on 10/17/19at 17:16; Start 10/17/19 at 16:15; Stop 10/17/19 at 17:14; Status DC Famotidine (Pepcid Vial) 20 mg 1X ONCE IVP Last administered on 10/17/19at 17:16; Start 10/17/19 at 16:15; Stop 10/17/19 at 16:19; Status DC Ketorolac Tromethamine (Toradol 15mg Vial) 10 mg 1X ONCE IVP Last administered on 10/17/19at 17:16; Start 10/17/19 at 16:15; Stop 10/17/19 at 16:19; Status DC Dexamethasone Sodium Phosphate (Decadron) 10 mg 1X ONCE IVP Last administered on 10/17/19at 17:17; Start 10/17/19 at 16:15; Stop 10/17/19 at 16:19; Status DC Albuterol/ Ipratropium (Duoneb) 3 ml 1X ONCE NEB Last administered on 10/17/19at 16:23; Start 10/17/19 at 16:15; Stop 10/17/19 at 16:19; Status DC Iohexol (Omnipaque 300 Mg/ml) 75 ml 1X ONCE IV Last administered on 10/17/19at 17:04; Start 10/17/19 at 16:45; Stop 10/17/19 at 16:46; Status DC Info (CONTRAST GIVEN -- Rx MONITORING) 1 each PRN DAILY PRN MC SEE COMMENTS; Start 10/17/19 at 16:45; Stop 10/19/19 at 16:44 Sodium Chloride (Normal Saline Flush) 3 ml QSHIFT PRN IV AFTER MEDS AND BLOOD DRAWS; Start 10/17/19 at 18:30 Sodium Chloride 1,000 ml @ 100 mls/hr Q10H IV Last administered on 10/19/19at 00:58; Start 10/17/19 at 18:26 Ondansetron HCl (Zofran) 4 mg PRN Q4HRS PRN IV NAUSEA/VOMITING; Start 10/17/19 at 18:30 Acetaminophen (Tylenol) 650 mg PRN Q4HRS PRN GT TEMP OVER 100.4F OR MILD PAIN; Start 10/17/19 at 18:30 Clonidine HCl (Catapres) 0.1 mg PRN Q6HRS PRN PO SBP>160 OR DBP>90; Start 10/17/19 at 18:30 Docusate Sodium (Colace) 100 mg PRN BID PRN PO CONSTIPATION; Start 10/17/19 at 18:30 Albuterol Sulfate (Ventolin Neb Soln) 2.5 mg PRN Q4HRS PRN NEB SHORTNESS OF BREATH Last administered on 10/18/19 08:34; Start 10/17/19 at 18:30 Guaifenesin (Robitussin) 200 mg PRN Q4HRS PRN PO COUGH Last administered on 10/19/19 05:15; Start 10/17/19 at 18:30 Lorazepam (Ativan) 0.5 mg PRN Q4HRS PRN PO ANXIETY / AGITATION Last administered on 10/19/19 05:15; Start 10/17/19 at 18:30 Sodium Chloride 1,000 ml @ 1,000 mls/hr 1X ONCE IV Last administered on 10/17/19 21:01; Start 10/17/19 at 18:30; Stop 10/17/19 at 19:29; Status DC Ondansetron HCl (Zofran) 4 mg PRN Q8HRS PRN IV NAUSEA/VOMITING; Start 10/17/19 at 18:30; Stop 10/18/19 at 13:37; Status DC Pantoprazole Sodium (Protonix) 40 mg DAILYAC PO Last administered on 10/19/19 05:15; Start 10/18/19 at 10:30 Albuterol/ Ipratropium (Duoneb) 3 ml TID NEB Last administered on 10/18/19 11:48; Start 10/18/19 at 14:00; Stop 10/18/19 at 14:46; Status DC Amlodipine Besylate (Norvasc) 5 mg DAILY PO Last administered on 10/19/19 08:58; Start 10/19/19 at 09:00 Benzonatate (Tessalon Perle) 100 mg PRN TID PRN PO COUGH 1ST CHOICE Last administered on 10/19/19 08:58; Start 10/18/19 at 14:15 Acetaminophen/ Hydrocodone Bitart (Lortab 7.5/325) 1 tab PRN Q8HRS PRN PO MODERATE PAIN 4-6 Last administered on 10/19/19at 13:16; Start 10/18/19 at 14:15 Albuterol/ Ipratropium (Duoneb) 3 ml RTQID NEB Last administered on 10/19/19at 11:08; Start 10/18/19 at 16:00 Guaifenesin (MUCINEX ER with DM) 1 tab BID PO Last administered on 10/19/19at 08:58; Start 10/18/19 at 21:00 Active Scripts Active Proair Hfa Inhaler (Albuterol Sulfate) 8.5 Gm Hfa.aer.ad 1 Puff INH PRN Q6HRS PRN Tessalon Perle (Benzonatate) 100 Mg Capsule 100 Mg PO TID PRN Reported Hydrocodone-Acetamin 7.5-325 (Hydrocodone/Acetaminophen) 1 Each Tablet 1 Each PO PRN Q8HRS PRN Amlodipine Besylate 5 Mg Tablet 5 Mg PO DAILY Vitals/I & O Vital Sign - Last 24 Hours 10/18/19 10/18/19 10/18/19 10/18/19 15:00 16:25 19:30 20:00 Temp 98.2 97.7 98.2 97.7 Pulse 79 78 Resp 22 20 B/P (MAP) 158/81 (106) 133/84 (100) Pulse Ox 100 98 99 O2 Delivery Nasal Cannula Nasal Cannula Nasal Cannula Nasal Cannula O2 Flow Rate 2.0 2.0 2.0 2.0 10/18/19 10/18/19 10/18/19 10/18/19 20:44 21:18 22:18 23:49 Temp 97.7 97.7 Pulse 82 Resp 18 18 20 B/P (MAP) 141/83 (102) Pulse Ox 100 100 100 97 O2 Delivery Nasal Cannula Nasal Cannula Nasal Cannula Nasal Cannula O2 Flow Rate 2.0 2.0 2.0 2.0 10/19/19 10/19/19 10/19/19 10/19/19 03:45 05:15 06:15 07:00 Temp 98.3 98.3 98.3 98.3 Pulse 69 69 Resp 16 18 18 18 B/P (MAP) 164/86 (112) 151/84 (106) Pulse Ox 99 99 99 100 O2 Delivery Nasal Cannula Nasal Cannula Nasal Cannula Nasal Cannula O2 Flow Rate 2.0 2.0 2.0 2.0 10/19/19 10/19/19 10/19/1919 07:29 08:00 08:58 11:00 Temp 97.6 97.6 Pulse 69 64 Resp 18 B/P (MAP) 151/84 130/82 (98) Pulse Ox 99 99 O2 Delivery Nasal Cannula Nasal Cannula Nasal Cannula O2 Flow Rate 2.0 2.0 2.0 10/19/19 10/19/19 11:10 13:16 Resp 19 Pulse Ox 99 O2 Delivery Nasal Cannula Nasal Cannula O2 Flow Rate 2.0 2.0 Intake and Output 10/18/19 10/18/19 10/19/19 15:00 23:00 07:00 Intake Total 600 ml 600 ml 480 ml Output Total 650 ml 1400 ml Balance 600 ml -50 ml -920 ml Nutrition Consultation Dietary Evaluation: Recommendations by RD: Dietary education by RD, Increase Calorie Intake, Protein supplementation Comments: ensure bid Expected Outcomes/Goals: to meet >75% est nutr needs via meals and supplements Interpretation of weight loss: >1-2% in 1 week Malnutrition Findings: Food and Nutrition Intake (Sev: <50% est energy req 5days Weight Status: Underweight SHAHRAM BHATIA MD Oct 19, 2019 13:38
[2019-10-19 15:00] VITALS: BP 138/77
[2019-10-19 19:41] VITALS: BP 123/72
[2019-10-19 23:41] VITALS: BP 138/84
[2019-10-20 03:44] VITALS: BP 157/66
[2019-10-20] MEDS: IV NORMAL SALINE 1000ML BAG 1,000 ML IV SCH (05:57)
[2019-10-20 07:00] VITALS: BP 121/74
[2019-10-20] MEDS: IPRATRPIUM/ALBUTEROL 0.5/2.5MG 3 ML NEBU. NEB SCH ×4 (07:22→20:00)
--- NOTE | 2019-10-20 07:26 | PDOC ---
PROGRESS NOTES History of Present Illness History of Present Illness VTE Prophylaxis Ordered VTE Prophylaxis Devices: Yes VTE Pharmacological Prophylaxi: Yes discjharge dx Assessment/Plan IMPRESSION: 1. No pulmonary mass or consolidation. on ct 2. No acute abdominal process. BY CT 10/17 3. Left thyroid nodule measuring 2.7 cm should be further characterized with nonemergent thyroid ultrasound, if not performed previously. 4. intractable abdominal pain// abnormal weight loss 5. lactic acidosis 6. ACUTE RENAL INJURY, LIKELTY VASOMOTOR NEPHROPATHY 7. Centrilobular emphysema. No pleural effusion is observed. There is no pneumothorax. ON CT CHEST 10/17 8. REMOTE TOBACCO ABUSE 9. moderate protein-caloric malnutrition 10. weakness with gait instability plan admit iv fluid support GI CONSULT TSH DUONEBS QID PRN IV ZOFRAN 4 MG Q 4 HRS PRN NEPHROLOGY CONSULT UA Discharge Recommendations * [facility] * * * STILL WEAK AND DIZZY WITH STANDING 10/19 36 MIN PT EXAM, CHART REVIEW d/c planning time, > 50% of time spent with exam, chart review, pt care coordination Vitals Vitals Vital Signs Date Time Temp Pulse Resp B/P (MAP) Pulse Ox O2 Delivery O2 Flow Rate FiO2 10/20/19 07:22 98 Nasal Cannula 2.0 10/20/19 03:44 98.5 72 18 157/66 (96) 98.5 Physical Exam General: Alert, Oriented X3, Cooperative, No acute distress Heart: Regular rate, Normal S1 Lungs: Other Abdomen: Normal bowel sounds, Soft, Other (MILD TENDERNESS) Extremities: No cyanosis Assessment and Plan Assessmemt and Plan Problems Medical Problems: (1) Acute renal insufficiency Status: Acute (2) COPD exacerbation Status: Acute (3) Dehydration Status: Acute (4) Generalized weakness Status: Acute Comment Review of Relevant I have reviewed the following items jaron (where applicable) has been applied. Labs Laboratory Tests Test 10/19/19 05:55 White Blood Count 4.1 x10^3/uL (4.0-11.0) Red Blood Count 4.07 x10^6/uL (4.30-5.70) Hemoglobin 12.3 g/dL (13.0-17.5) Hematocrit 37.5 % (39.0-53.0) Mean Corpuscular Volume 92 fL (79-100) Mean Corpuscular Hemoglobin 30 pg (25-35) Mean Corpuscular Hemoglobin Concent 33 g/dL (31-37) Red Cell Distribution Width 14.5 % (11.5-14.5) Platelet Count 158 x10^3/uL (140-400) Neutrophils (%) (Auto) 68 % (31-73) Lymphocytes (%) (Auto) 22 % (24-48) Monocytes (%) (Auto) 9 % (0-9) Eosinophils (%) (Auto) 1 % (0-3) Basophils (%) (Auto) 0 % (0-3) Neutrophils # (Auto) 2.8 x10^3/uL (1.8-7.7) Lymphocytes # (Auto) 0.9 x10^3/uL (1.0-4.8) Monocytes # (Auto) 0.4 x10^3/uL (0.0-1.1) Eosinophils # (Auto) 0.0 x10^3/uL (0.0-0.7) Basophils # (Auto) 0.0 x10^3/uL (0.0-0.2) Sodium Level 140 mmol/L (136-145) Potassium Level 3.8 mmol/L (3.5-5.1) Chloride Level 106 mmol/L (98-107) Carbon Dioxide Level 26 mmol/L (21-32) Anion Gap 8 (6-14) Blood Urea Nitrogen 9 mg/dL (8-26) Creatinine 0.8 mg/dL (0.7-1.3) Estimated GFR (Cockcroft-Gault) 116.3 BUN/Creatinine Ratio 11 (6-20) Glucose Level 97 mg/dL (70-99) Calcium Level 7.5 mg/dL (8.5-10.1) Total Bilirubin 0.3 mg/dL (0.2-1.0) Aspartate Amino Transf (AST/SGOT) 23 U/L (15-37) Alanine Aminotransferase (ALT/SGPT) 19 U/L (16-63) Alkaline Phosphatase 48 U/L (46-116) Total Protein 5.9 g/dL (6.4-8.2) Albumin 2.7 g/dL (3.4-5.0) Albumin/Globulin Ratio 0.8 (1.0-1.7) Microbiology 10/18/19 Urine Culture - Final, Complete 10/18/19 Urine Culture Result 1 (GARRETT) - Final, Complete 10/17/19 Blood Culture - Preliminary, Resulted NO GROWTH AFTER 2 DAYS Medications Current Medications Sodium Chloride 1,000 ml @ 1,000 mls/hr 1X ONCE IV Last administered on 10/17/19at 17:16; Start 10/17/19 at 16:15; Stop 10/17/19 at 17:14; Status DC Famotidine (Pepcid Vial) 20 mg 1X ONCE IVP Last administered on 10/17/19at 17:16; Start 10/17/19 at 16:15; Stop 10/17/19 at 16:19; Status DC Ketorolac Tromethamine (Toradol 15mg Vial) 10 mg 1X ONCE IVP Last administered on 10/17/19at 17:16; Start 10/17/19 at 16:15; Stop 10/17/19 at 16:19; Status DC Dexamethasone Sodium Phosphate (Decadron) 10 mg 1X ONCE IVP Last administered on 10/17/19at 17:17; Start 10/17/19 at 16:15; Stop 10/17/19 at 16:19; Status DC Albuterol/ Ipratropium (Duoneb) 3 ml 1X ONCE NEB Last administered on 10/17/19at 16:23; Start 10/17/19 at 16:15; Stop 10/17/19 at 16:19; Status DC Iohexol (Omnipaque 300 Mg/ml) 75 ml 1X ONCE IV Last administered on 10/17/19at 17:04; Start 10/17/19 at 16:45; Stop 10/17/19 at 16:46; Status DC Info (CONTRAST GIVEN -- Rx MONITORING) 1 each PRN DAILY PRN MC SEE COMMENTS; Start 10/17/19 at 16:45; Stop 10/19/19 at 16:44; Status DC Sodium Chloride (Normal Saline Flush) 3 ml QSHIFT PRN IV AFTER MEDS AND BLOOD DRAWS; Start 10/17/19 at 18:30 Sodium Chloride 1,000 ml @ 100 mls/hr Q10H IV Last administered on 10/20/19at 05:57; Start 10/17/19 at 18:26 Ondansetron HCl (Zofran) 4 mg PRN Q4HRS PRN IV NAUSEA/VOMITING; Start 10/17/19 at 18:30 Acetaminophen (Tylenol) 650 mg PRN Q4HRS PRN GT TEMP OVER 100.4F OR MILD PAIN; Start 10/17/19 at 18:30 Clonidine HCl (Catapres) 0.1 mg PRN Q6HRS PRN PO SBP>160 OR DBP>90; Start 10/17/19 at 18:30 Docusate Sodium (Colace) 100 mg PRN BID PRN PO CONSTIPATION; Start 10/17/19 at 18:30 Albuterol Sulfate (Ventolin Neb Soln) 2.5 mg PRN Q4HRS PRN NEB SHORTNESS OF BREATH Last administered on 10/18/19at 08:34; Start 10/17/19 at 18:30 Guaifenesin (Robitussin) 200 mg PRN Q4HRS PRN PO COUGH Last administered on 10/19/19at 17:20; Start 10/17/19 at 18:30 Lorazepam (Ativan) 0.5 mg PRN Q4HRS PRN PO ANXIETY / AGITATION Last administered on 10/19/19 05:15; Start 10/17/19 at 18:30 Sodium Chloride 1,000 ml @ 1,000 mls/hr 1X ONCE IV Last administered on 10/17/19 21:01; Start 10/17/19 at 18:30; Stop 10/17/19 at 19:29; Status DC Ondansetron HCl (Zofran) 4 mg PRN Q8HRS PRN IV NAUSEA/VOMITING; Start 10/17/19 at 18:30; Stop 10/18/19 at 13:37; Status DC Pantoprazole Sodium (Protonix) 40 mg DAILYAC PO Last administered on 10/19/19 05:15; Start 10/18/19 at 10:30 Albuterol/ Ipratropium (Duoneb) 3 ml TID NEB Last administered on 10/18/19at 11:48; Start 10/18/19 at 14:00; Stop 10/18/19 at 14:46; Status DC Amlodipine Besylate (Norvasc) 5 mg DAILY PO Last administered on 10/19/19at 08:58; Start 10/19/19 at 09:00 Benzonatate (Tessalon Perle) 100 mg PRN TID PRN PO COUGH 1ST CHOICE Last administered on 10/19/19at 08:58; Start 10/18/19 at 14:15 Acetaminophen/ Hydrocodone Bitart (Lortab 7.5/325) 1 tab PRN Q8HRS PRN PO MODERATE PAIN 4-6 Last administered on 10/19/19at 13:16; Start 10/18/19 at 14:15 Albuterol/ Ipratropium (Duoneb) 3 ml RTQID NEB Last administered on 10/20/19at 07:22; Start 10/18/19 at 16:00 Guaifenesin (MUCINEX ER with DM) 1 tab BID PO Last administered on 10/19/19at 21:15; Start 10/18/19 at 21:00 Active Scripts Active Proair Hfa Inhaler (Albuterol Sulfate) 8.5 Gm Hfa.aer.ad 1 Puff INH PRN Q6HRS PRN Tessalon Perle (Benzonatate) 100 Mg Capsule 100 Mg PO TID PRN Reported Hydrocodone-Acetamin 7.5-325 (Hydrocodone/Acetaminophen) 1 Each Tablet 1 Each PO PRN Q8HRS PRN Amlodipine Besylate 5 Mg Tablet 5 Mg PO DAILY Vitals/I & O Vital Sign - Last 24 Hours 10/19/19 10/19/19 10/19/19 10/19/19 07:29 08:00 08:58 11:00 Temp 97.6 97.6 Pulse 69 64 Resp 18 B/P (MAP) 151/84 130/82 (98) Pulse Ox 99 99 O2 Delivery Nasal Cannula Nasal Cannula Nasal Cannula O2 Flow Rate 2.0 2.0 2.0 10/19/19 10/19/19 10/19/19 10/19/19 11:10 13:16 14:22 15:00 Temp 97.6 97.6 Pulse 67 Resp 19 18 18 B/P (MAP) 138/77 (97) Pulse Ox 99 99 99 O2 Delivery Nasal Cannula Nasal Cannula Nasal Cannula Nasal Cannula O2 Flow Rate 2.0 2.0 2.0 2.0 10/19/19 10/19/19 10/19/19 10/19/19 15:25 19:41 19:42 20:08 Temp 98.9 98.9 Pulse 66 B/P (MAP) 123/72 (89) Pulse Ox 99 98 O2 Delivery Nasal Cannula Nasal Cannula Nasal Cannula Nasal Cannula O2 Flow Rate 2.0 2.0 2.0 2.0 10/19/19 10/20/19 10/20/19 23:41 03:44 07:22 Temp 98.4 98.5 98.4 98.5 Pulse 61 72 Resp 18 18 B/P (MAP) 138/84 (102) 157/66 (96) Pulse Ox 100 99 98 O2 Delivery Nasal Cannula Nasal Cannula Nasal Cannula O2 Flow Rate 2.0 2.0 2.0 Intake and Output 10/19/19 10/19/19 10/20/19 15:00 23:00 07:00 Intake Total 1293.13 ml Output Total 800 ml 650 ml 1700 ml Balance -800 ml -650 ml -406.87 ml Nutrition Consultation Dietary Evaluation: Recommendations by RD: Dietary education by RD, Increase Calorie Intake, Protein supplementation Comments: ensure bid Expected Outcomes/Goals: to meet >75% est nutr needs via meals and supplements Interpretation of weight loss: >1-2% in 1 week Malnutrition Findings: Food and Nutrition Intake (Sev: <50% est energy req 5days Weight Status: Underweight SHAHRAM BHATIA MD Oct 20, 2019 07:26
--- NOTE | 2019-10-20 09:24 | NUR ---
Late entry: SW spoke with pt 2x yesterday regarding home health and discharge planning. Pt's significant other was also on speaker phone. Pt has a hospice home care coordinator that comes 3-4hrs/day to help with cleaning/ADL's. SW discussed difference between home care and skilled home health to address pt's report of functional decline. Pt agreeable with [facility] and had spoken with Nurse navigator. Pt will need transportation when he goes home and reported he has his keys with him. SW will continue to follow.
[2019-10-20] MEDS: guaiFENesin DM 600/30MG 1 TAB TAB.ER.12H PO SCH ×2 (09:26→21:50)
[2019-10-20] MEDS: HYDROcodone/APAP 7.5/325MG 1 TAB TABLET PO PRN (09:26)
[2019-10-20] MEDS: amLODIPine BESYLATE 5 MG TABLET PO SCH (09:27)
[2019-10-20] MEDS: BENZONATATE 100 MG CAPSULE. PO PRN (09:27)
[2019-10-20] MEDS: PANTOPRAZOLE 40 MG TABLET.DR. PO SCH (09:27)
[2019-10-20 10:02] LABS: BASO % 0 % (0-3); EOS # 0.1 x10^3/uL (0.0-0.7); EOS % 2 % (0-3); HEMATOCRIT 37.5 % (39.0-53.0); HEMOGLOBIN 12.4 g/dL (13.0-17.5); LYMPH # 0.6 x10^3/uL (1.0-4.8); LYMPH % 12 % (24-48); MEAN CORPUSCULAR HEMOGLOBIN 30 pg (25-35); MEAN CORPUSCULAR HGB CONC 33 g/dL (31-37); MEAN CORPUSCULAR VOLUME 91 fL (79-100); MONO # 0.5 x10^3/uL (0.0-1.1); MONO % 10 % (0-9); NEUT # 3.6 x10^3/uL (1.8-7.7); NEUT % 76 % (31-73); PLATELET COUNT 183 x10^3/uL (140-400); RED BLOOD COUNT 4.11 x10^6/uL (4.30-5.70); RED CELL DISTRIBUTION WIDTH 13.7 % (11.5-14.5); WHITE BLOOD COUNT 4.7 x10^3/uL (4.0-11.0)
[2019-10-20 10:20] LABS: ALBUMIN 2.9 g/dL (3.4-5.0); ALBUMIN/GLOBULIN RATIO 0.8 (1.0-1.7); CALCIUM 8.4 mg/dL (8.5-10.1); CREATININE 0.8 mg/dL (0.7-1.3); GFR 116.3; POTASSIUM 3.7 mmol/L (3.5-5.1); TOTAL BILIRUBIN 0.3 mg/dL (0.2-1.0); TOTAL PROTEIN 6.6 g/dL (6.4-8.2)
[2019-10-20 11:00] VITALS: BP 115/88
--- NOTE | 2019-10-20 11:25 | PDOC3 ---
Discharge Summary Date of Admission: Oct 17, 2019 Date of Discharge: Oct 20, 2019 Follow-Up: 1-2 days Admitting Diagnosis comment: [email or web address] dx Assessment/Plan IMPRESSION: 1. No pulmonary mass or consolidation. on ct 2. No acute abdominal process. BY CT 10/17 3. Left thyroid nodule measuring 2.7 cm should be further characterized with nonemergent thyroid ultrasound, if not performed previously. 4. intractable abdominal pain// abnormal weight loss 5. lactic acidosis 6. 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 Centrilobular emphysema. No pleural effusion is observed. There is no pneumothorax. ON CT CHEST 10/17 8. REMOTE TOBACCO ABUSE 9. moderate protein-caloric malnutrition 10. weakness with gait instability, needs snf but refused AMA plan admit iv fluid support GI CONSULT TSH DUONEBS QID PRN IV ZOFRAN 4 MG Q 4 HRS PRN NEPHROLOGY CONSULT UA Discharge Recommendations * Assisted Unit * * * STILL WEAK AND DIZZY WITH STANDING 10/19 36 MIN PT EXAM, CHART REVIEW d/c planning time, > 50% of time spent with exam, chart review, pt care coordination Vitals Vitals Vital Signs Date Time Temp Pulse Resp B/P (MAP) Pulse Ox O2 Delivery O2 Flow Rate FiO2 10/20/19 07:22 98 Nasal Cannula 2.0 10/20/19 03:44 98.5 72 18 157/66 (96) 98.5 Physical Exam General: Alert, Oriented X3, Cooperative, No acute distress Heart: Regular rate, Normal S1 Lungs: Other Abdomen: Normal bowel sounds, Soft, Other (MILD TENDERNESS) Extremities: No cyanosis Assessment and Plan Assessmemt and Plan Problems Medical Problems: (1) Acute renal insufficiency Status: Acute (2) COPD exacerbation Status: Acute (3) Dehydration Status: Acute (4) Generalized weakness Status: Acute FINAL DIAGNOSIS Problems Medical Problems: (1) Acute renal insufficiency Status: Acute (2) COPD exacerbation Status: Acute (3) Dehydration Status: Acute (4) Generalized weakness Status: Acute Brief Hospital Course Mr. Davison is a 69 old [sex] who presented with [ weakness, hypoxia weight loss, copd ] CONDITION AT DISCHARGE: Improved Discharge Medications Current Medications Sodium Chloride 1,000 ml @ 1,000 mls/hr 1X ONCE IV Last administered on 10/17/19at 17:16; Start 10/17/19 at 16:15; Stop 10/17/19 at 17:14; Status DC Famotidine (Pepcid Vial) 20 mg 1X ONCE IVP Last administered on 10/17/19at 17:16; Start 10/17/19 at 16:15; Stop 10/17/19 at 16:19; Status DC Ketorolac Tromethamine (Toradol 15mg Vial) 10 mg 1X ONCE IVP Last administered on 10/17/19at 17:16; Start 10/17/19 at 16:15; Stop 10/17/19 at 16:19; Status DC Dexamethasone Sodium Phosphate (Decadron) 10 mg 1X ONCE IVP Last administered on 10/17/19at 17:17; Start 10/17/19 at 16:15; Stop 10/17/19 at 16:19; Status DC Albuterol/ Ipratropium (Duoneb) 3 ml 1X ONCE NEB Last administered on 10/17/19at 16:23; Start 10/17/19 at 16:15; Stop 10/17/19 at 16:19; Status DC Iohexol (Omnipaque 300 Mg/ml) 75 ml 1X ONCE IV Last administered on 10/17/19at 17:04; Start 10/17/19 at 16:45; Stop 10/17/19 at 16:46; Status DC Info (CONTRAST GIVEN -- Rx MONITORING) 1 each PRN DAILY PRN MC SEE COMMENTS; Start 10/17/19 at 16:45; Stop 10/19/19 at 16:44; Status DC Sodium Chloride (Normal Saline Flush) 3 ml QSHIFT PRN IV AFTER MEDS AND BLOOD DRAWS; Start 10/17/19 at 18:30 Sodium Chloride 1,000 ml @ 100 mls/hr Q10H IV Last administered on 10/20/19at 05:57; Start 10/17/19 at 18:26 Ondansetron HCl (Zofran) 4 mg PRN Q4HRS PRN IV NAUSEA/VOMITING; Start 10/17/19 at 18:30 Acetaminophen (Tylenol) 650 mg PRN Q4HRS PRN GT TEMP OVER 100.4F OR MILD PAIN; Start 10/17/19 at 18:30 Clonidine HCl (Catapres) 0.1 mg PRN Q6HRS PRN PO SBP>160 OR DBP>90; Start 10/17/19 at 18:30 Docusate Sodium (Colace) 100 mg PRN BID PRN PO CONSTIPATION; Start 10/17/19 at 18:30 Albuterol Sulfate (Ventolin Neb Soln) 2.5 mg PRN Q4HRS PRN NEB SHORTNESS OF BREATH Last administered on 10/18/19 08:34; Start 10/17/19 at 18:30 Guaifenesin (Robitussin) 200 mg PRN Q4HRS PRN PO COUGH Last administered on 10/19/19 17:20; Start 10/17/19 at 18:30 Lorazepam (Ativan) 0.5 mg PRN Q4HRS PRN PO ANXIETY / AGITATION Last admi nistered on 10/19/19 05:15; Start 10/17/19 at 18:30 Sodium Chloride 1,000 ml @ 1,000 mls/hr 1X ONCE IV Last administered on 10/17/19 21:01; Start 10/17/19 at 18:30; Stop 10/17/19 at 19:29; Status DC Ondansetron HCl (Zofran) 4 mg PRN Q8HRS PRN IV NAUSEA/VOMITING; Start 10/17/19 at 18:30; Stop 10/18/19 at 13:37; Status DC Pantoprazole Sodium (Protonix) 40 mg DAILYAC PO Last administered on 10/20/19 09:27; Start 10/18/19 at 10:30 Albuterol/ Ipratropium (Duoneb) 3 ml TID NEB Last administered on 10/18/19 11:48; Start 10/18/19 at 14:00; Stop 10/18/19 at 14:46; Status DC Amlodipine Besylate (Norvasc) 5 mg DAILY PO Last administered on 10/20/19 09:27; Start 10/19/19 at 09:00 Benzonatate (Tessalon Perle) 100 mg PRN TID PRN PO COUGH 1ST CHOICE Last administered on 10/20/19 09:27; Start 10/18/19 at 14:15 Acetaminophen/ Hydrocodone Bitart (Lortab 7.5/325) 1 tab PRN Q8HRS PRN PO MODERATE PAIN 4-6 Last administered on 10/20/19at 09:26; Start 10/18/19 at 14:15 Albuterol/ Ipratropium (Duoneb) 3 ml RTQID NEB Last administered on 10/20/19at 11:17; Start 10/18/19 at 16:00 Guaifenesin (MUCINEX ER with DM) 1 tab BID PO Last administered on 10/20/19at 09:26; Start 10/18/19 at 21:00 Active Scripts Active Proair Hfa Inhaler (Albuterol Sulfate) 8.5 Gm Hfa.aer.ad 1 Puff INH PRN Q6HRS PRN Tessalon Perle (Benzonatate) 100 Mg Capsule 100 Mg PO TID PRN Reported Hydrocodone-Acetamin 7.5-325 (Hydrocodone/Acetaminophen) 1 Each Tablet 1 Each PO PRN Q8HRS PRN Amlodipine Besylate 5 Mg Tablet 5 Mg PO DAILY Vital Signs Vital Signs Date Time Temp Pulse Resp B/P (MAP) Pulse Ox O2 Delivery O2 Flow Rate FiO2 10/20/19 11:18 98 Nasal Cannula 2.0 10/20/19 09:27 78 121/74 10/20/19 09:26 18 10/20/19 07:00 98.1 98.1 Labs Laboratory Tests Test 10/19/19 05:55 10/20/19 09:34 White Blood Count 4.1 x10^3/uL (4.0-11.0) 4.7 x10^3/uL (4.0-11.0) Red Blood Count 4.07 x10^6/uL (4.30-5.70) 4.11 x10^6/uL (4.30-5.70) Hemoglobin 12.3 g/dL (13.0-17.5) 12.4 g/dL (13.0-17.5) Hematocrit 37.5 % (39.0-53.0) 37.5 % (39.0-53.0) Mean Corpuscular Volume 92 fL (79-100) 91 fL (79-100) Mean Corpuscular Hemoglobin 30 pg (25-35) 30 pg (25-35) Mean Corpuscular Hemoglobin Concent 33 g/dL (31-37) 33 g/dL (31-37) Red Cell Distribution Width 14.5 % (11.5-14.5) 13.7 % (11.5-14.5) Platelet Count 158 x10^3/uL (140-400) 183 x10^3/uL (140-400) Neutrophils (%) (Auto) 68 % (31-73) 76 % (31-73) Lymphocytes (%) (Auto) 22 % (24-48) 12 % (24-48) Monocytes (%) (Auto) 9 % (0-9) 10 % (0-9) Eosinophils (%) (Auto) 1 % (0-3) 2 % (0-3) Basophils (%) (Auto) 0 % (0-3) 0 % (0-3) Neutrophils # (Auto) 2.8 x10^3/uL (1.8-7.7) 3.6 x10^3/uL (1.8-7.7) Lymphocytes # (Auto) 0.9 x10^3/uL (1.0-4.8) 0.6 x10^3/uL (1.0-4.8) Monocytes # (Auto) 0.4 x10^3/uL (0.0-1.1) 0.5 x10^3/uL (0.0-1.1) Eosinophils # (Auto) 0.0 x10^3/uL (0.0-0.7) 0.1 x10^3/uL (0.0-0.7) Basophils # (Auto) 0.0 x10^3/uL (0.0-0.2) 0.0 x10^3/uL (0.0-0.2) Sodium Level 140 mmol/L (136-145) 139 mmol/L (136-145) Potassium Level 3.8 mmol/L (3.5-5.1) 3.7 mmol/L (3.5-5.1) Chloride Level 106 mmol/L (98-107) 103 mmol/L (98-107) Carbon Dioxide Level 26 mmol/L (21-32) 31 mmol/L (21-32) Anion Gap 8 (6-14) 5 (6-14) Blood Urea Nitrogen 9 mg/dL (8-26) 7 mg/dL (8-26) Creatinine 0.8 mg/dL (0.7-1.3) 0.8 mg/dL (0.7-1.3) Estimated GFR (Cockcroft-Gault) 116.3 116.3 BUN/Creatinine Ratio 11 (6-20) 9 (6-20) Glucose Level 97 mg/dL (70-99) 131 mg/dL (70-99) Calcium Level 7.5 mg/dL (8.5-10.1) 8.4 mg/dL (8.5-10.1) Total Bilirubin 0.3 mg/dL (0.2-1.0) 0.3 mg/dL (0.2-1.0) Aspartate Amino Transf (AST/SGOT) 23 U/L (15-37) 20 U/L (15-37) Alanine Aminotransferase (ALT/SGPT) 19 U/L (16-63) 19 U/L (16-63) Alkaline Phosphatase 48 U/L (46-116) 52 U/L (46-116) Total Protein 5.9 g/dL (6.4-8.2) 6.6 g/dL (6.4-8.2) Albumin 2.7 g/dL (3.4-5.0) 2.9 g/dL (3.4-5.0) Albumin/Globulin Ratio 0.8 (1.0-1.7) 0.8 (1.0-1.7) Laboratory Tests Test 10/20/19 09:34 White Blood Count 4.7 x10^3/uL (4.0-11.0) Red Blood Count 4.11 x10^6/uL (4.30-5.70) Hemoglobin 12.4 g/dL (13.0-17.5) Hematocrit 37.5 % (39.0-53.0) Mean Corpuscular Volume 91 fL (79-100) Mean Corpuscular Hemoglobin 30 pg (25-35) Mean Corpuscular Hemoglobin Concent 33 g/dL (31-37) Red Cell Distribution Width 13.7 % (11.5-14.5) Platelet Count 183 x10^3/uL (140-400) Neutrophils (%) (Auto) 76 % (31-73) Lymphocytes (%) (Auto) 12 % (24-48) Monocytes (%) (Auto) 10 % (0-9) Eosinophils (%) (Auto) 2 % (0-3) Basophils (%) (Auto) 0 % (0-3) Neutrophils # (Auto) 3.6 x10^3/uL (1.8-7.7) Lymphocytes # (Auto) 0.6 x10^3/uL (1.0-4.8) Monocytes # (Auto) 0.5 x10^3/uL (0.0-1.1) Eosinophils # (Auto) 0.1 x10^3/uL (0.0-0.7) Basophils # (Auto) 0.0 x10^3/uL (0.0-0.2) Sodium Level 139 mmol/L (136-145) Potassium Level 3.7 mmol/L (3.5-5.1) Chloride Level 103 mmol/L (98-107) Carbon Dioxide Level 31 mmol/L (21-32) Anion Gap 5 (6-14) Blood Urea Nitrogen 7 mg/dL (8-26) Creatinine 0.8 mg/dL (0.7-1.3) Estimated GFR (Cockcroft-Gault) 116.3 BUN/Creatinine Ratio 9 (6-20) Glucose Level 131 mg/dL (70-99) Calcium Level 8.4 mg/dL (8.5-10.1) Total Bilirubin 0.3 mg/dL (0.2-1.0) Aspartate Amino Transf (AST/SGOT) 20 U/L (15-37) Alanine Aminotransferase (ALT/SGPT) 19 U/L (16-63) Alkaline Phosphatase 52 U/L (46-116) Total Protein 6.6 g/dL (6.4-8.2) Albumin 2.9 g/dL (3.4-5.0) Albumin/Globulin Ratio 0.8 (1.0-1.7) Allergies Allergies Coded Allergies Type Severity Reaction Last Updated Verified No Known Drug Allergies 11/08/18 No Disposition/Orders: D/C to Home w/ SHAHRAM MTZ MD Oct 20, 2019 11:25
[2019-10-20] MEDS ORDERED: IPRA3AMP29 NEB (11:27)
[2019-10-20] MEDS ORDERED: GUAI-108 PO (11:27)
[2019-10-20] MEDS ORDERED: DOCU-153 PO (11:27)
[2019-10-20] MEDS ORDERED: ACET650S GT (11:27)
[2019-10-20] MEDS ORDERED: PANT40TA77 PO (11:27)
--- NOTE | 2019-10-20 11:28 | SNU/HH DC ---
DISCHARGE WITH HOME HEALTH DISCHARGE INFORMATION: Final Diagnosis: Problems Medical Problems: (1) Acute renal insufficiency Status: Acute (2) COPD exacerbation Status: Acute (3) Dehydration Status: Acute (4) Generalized weakness Status: Acute Condition on Discharge: Stable CODE STATUS: Code Status: Full HOME HEALTH: Face to Face: I certify this patient is under my care and that I, or a nurse practitioner or physician's assistant loan processor working with me, had a face to face encounter that meets the physician face to face encounter requirements with this patient on []. Medical Complications: COPD, Other (WEAKNESS) RN For Eval/Treatment: Yes Physical Therapy For: Evalulation/Treatment Occupational Therapy For: Evaluation/Treatment Speech Language Pathology For: Evaluation/Treatment Home Health Aide For: Self-care ENTRY EXAMINER For: Community Resources Pt Meets Homebound Status: Unsteady balance w/ amb, POST DISCHARGE ORDERS: Activity Instructions for Disc: Activity as tolerated DIET AFTER DISCHARGE: Cardiac CHECKS AFTER DISCHARGE: Checks after discharge: Check blood press - daily TREATMENT/EQUIPMENT ORDERS: Adaptive Equipment Issued: Front wheeled walker Discharge Respiratory Equipmen: Oxygen, Nebulizer CERTIFICATION STATEMENT: Certification Statement: Certification Statement: Based on the above finding, I certify that this patient is confined to the home and needs intermittent nursing home care, physical therapy and/or speech therapy, or continues to need occupational therapy.~ This patient is under my care, and I have initiated the establishment of the plan of care.~ This patient will be followed by myself or a community physician who will periodically review the plan of care. Home Meds Active Scripts Albuterol Sulfate (PROAIR HFA INHALER) 8.5 Gm Hfa.aer.ad, 1 PUFF INH PRN Q6HRS PRN for SHORTNESS OF BREATH, #1 INHALER 0 Refills Prov:ANDREA YEUNG DO 10/20/16 Benzonatate (TESSALON PERLE) 100 Mg Capsule, 100 MG PO TID PRN for COUGH, #14 CAP Prov:ANDREA YEUNG DO 10/20/16 Reported Medications Hydrocodone/Acetaminophen (Hydrocodone-Acetamin 7.5-325) 1 Each Tablet, 1 EACH PO PRN Q8HRS PRN for PAIN, TAB 10/18/19 Amlodipine Besylate (AMLODIPINE BESYLATE) 5 Mg Tablet, 5 MG PO DAILY for HTN, TAB 10/18/19 SHAHRAM BHATIA MD Oct 20, 2019 11:28
--- NOTE | 2019-10-20 11:46 | PDOC ---
Subjective: Subjective: Really wants to stay another night until his daughter gets here from [place]. Feels less weak, eating okay, abd still sore w/ coughing. Objective: Vital Signs: Vital Signs Date Time Temp Pulse Resp B/P (MAP) Pulse Ox O2 Delivery O2 Flow Rate FiO2 10/20/19 11:18 98 Nasal Cannula 2.0 10/20/19 09:27 78 121/74 10/20/19 09:26 18 10/20/19 07:00 98.1 98.1 Labs: Laboratory Tests Test 10/20/19 09:34 White Blood Count 4.7 x10^3/uL Red Blood Count 4.11 x10^6/uL Hemoglobin 12.4 g/dL Hematocrit 37.5 % Mean Corpuscular Volume 91 fL Mean Corpuscular Hemoglobin 30 pg Mean Corpuscular Hemoglobin Concent 33 g/dL Red Cell Distribution Width 13.7 % Platelet Count 183 x10^3/uL Neutrophils (%) (Auto) 76 % Lymphocytes (%) (Auto) 12 % Monocytes (%) (Auto) 10 % Eosinophils (%) (Auto) 2 % Basophils (%) (Auto) 0 % Neutrophils # (Auto) 3.6 x10^3/uL Lymphocytes # (Auto) 0.6 x10^3/uL Monocytes # (Auto) 0.5 x10^3/uL Eosinophils # (Auto) 0.1 x10^3/uL Basophils # (Auto) 0.0 x10^3/uL Sodium Level 139 mmol/L Potassium Level 3.7 mmol/L Chloride Level 103 mmol/L Carbon Dioxide Level 31 mmol/L Anion Gap 5 Blood Urea Nitrogen 7 mg/dL Creatinine 0.8 mg/dL Estimated GFR (Cockcroft-Gault) 116.3 BUN/Creatinine Ratio 9 Glucose Level 131 mg/dL Calcium Level 8.4 mg/dL Total Bilirubin 0.3 mg/dL Aspartate Amino Transf (AST/SGOT) 20 U/L Alanine Aminotransferase (ALT/SGPT) 19 U/L Alkaline Phosphatase 52 U/L Total Protein 6.6 g/dL Albumin 2.9 g/dL Albumin/Globulin Ratio 0.8 URINE CULTURE RES 1 Final No growth BLOOD CULTURE Preliminary NO GROWTH AFTER 2 DAYS PE: GEN: NAD, up in chair LUNGS: NC ABD: less sore NEURO/PSYCH: A & O 3 A/P: COPD exacerbation Abd pain - MSK 2/2 cough -- Doesn't want to discharge - defer to Dr. Calhoun. SINA NICKERSON Oct 20, 2019 11:46
--- NOTE | 2019-10-20 11:48 | PDOC ---
SUBJECTIVE ROS c/o dizziness OBJECTIVE Vital Signs Vital Signs Date Time Temp Pulse Resp B/P (MAP) Pulse Ox O2 Delivery O2 Flow Rate FiO2 10/20/19 11:18 98 Nasal Cannula 2.0 10/20/19 09:27 78 121/74 10/20/19 09:26 18 10/20/19 07:00 98.1 98.1 I & 0 Intake and Output 10/20/19 07:00 Intake Total 1293.13 ml Output Total 3150 ml Balance -1856.87 ml Intake Oral 380 ml IV Total 913.13 ml Output Urine Total 3150 ml PHYSICAL EXAM Physical Exam General: Alert, Oriented X3, Cooperative, No acute distress Lungs: Clear to auscultation Heart: RRR Breasts: Not examined Abdomen: Normal bowel sounds, Soft PELVIC: Examination not indicated Extremities: No edema Neuro: Normal speech, Cranial nerves 3-12 NL DIAGNOSIS/ASSESSMENT Assessment & Plan MONET - Pre-renal UA unremarkable, CT scan unremarkable Resolved with IVF . E-Lytes stable Acute on chronic hypoxemic respiratory failure. Acute exacerbation of chronic obstructive pulmonary disease. Abnormal CT chest revealing pulmonary nodules. Dizziness- per primary Will sign off. Thank you COMMENT/RELEVANT DATA Meds Current Medications Medications (Trade) Dose Ordered Sig/Candace Start Time Stop Time Status Last Admin Dose Admin Acetaminophen (Tylenol) 650 mg PRN Q4HRS PRN 10/17/19 18:30 Acetaminophen/ Hydrocodone Bitart (Lortab 7.5/325) 1 tab PRN Q8HRS PRN 10/18/19 14:15 10/20/19 09:26 1 TAB Albuterol Sulfate (Ventolin Neb Soln) 2.5 mg PRN Q4HRS PRN 10/17/19 18:30 10/18/19 08:34 2.5 MG Albuterol/ Ipratropium (Duoneb) 3 ml RTQID 10/18/19 16:00 10/20/19 11:17 3 ML Amlodipine Besylate (Norvasc) 5 mg DAILY 10/19/19 09:00 10/20/19 09:27 5 MG Benzonatate (Tessalon Perle) 100 mg PRN TID PRN 10/18/19 14:15 10/20/19 09:27 100 MG Clonidine HCl (Catapres) 0.1 mg PRN Q6HRS PRN 10/17/19 18:30 Dexamethasone Sodium Phosphate (Decadron) 10 mg 1X ONCE 10/17/19 16:15 10/17/19 16:19 DC 10/17/19 17:17 10 MG Docusate Sodium (Colace) 100 mg PRN BID PRN 10/17/19 18:30 Famotidine (Pepcid Vial) 20 mg 1X ONCE 10/17/19 16:15 10/17/19 16:19 DC 10/17/19 17:16 20 MG Guaifenesin (MUCINEX ER with DM) 1 tab BID 10/18/19 21:00 10/20/19 09:26 1 TAB Guaifenesin (Robitussin) 200 mg PRN Q4HRS PRN 10/17/19 18:30 10/19/19 17:20 200 MG Info (CONTRAST GIVEN -- Rx MONITORING) 1 each PRN DAILY PRN 10/17/19 16:45 10/19/19 16:44 DC Iohexol (Omnipaque 300 Mg/ml) 75 ml 1X ONCE 10/17/19 16:45 10/17/19 16:46 DC 10/17/19 17:04 75 ML Ketorolac Tromethamine (Toradol 15mg Vial) 10 mg 1X ONCE 10/17/19 16:15 10/17/19 16:19 DC 10/17/19 17:16 10 MG Lorazepam (Ativan) 0.5 mg PRN Q4HRS PRN 10/17/19 18:30 10/19/19 05:15 0.5 MG Ondansetron HCl (Zofran) 4 mg PRN Q8HRS PRN 10/17/19 18:30 10/18/19 13:37 DC Pantoprazole Sodium (Protonix) 40 mg DAILYAC 10/18/19 10:30 10/20/19 09:27 40 MG Sodium Chloride 1,000 ml @ 1,000 mls/hr 1X ONCE 10/17/19 18:30 10/17/19 19:29 DC 10/17/19 21:01 1,000 MLS/HR Sodium Chloride (Normal Saline Flush) 3 ml QSHIFT PRN 10/17/19 18:30 Lab Laboratory Tests Test 10/20/19 09:34 White Blood Count 4.7 x10^3/uL (4.0-11.0) Red Blood Count 4.11 x10^6/uL (4.30-5.70) Hemoglobin 12.4 g/dL (13.0-17.5) Hematocrit 37.5 % (39.0-53.0) Mean Corpuscular Volume 91 fL (79-100) Mean Corpuscular Hemoglobin 30 pg (25-35) Mean Corpuscular Hemoglobin Concent 33 g/dL (31-37) Red Cell Distribution Width 13.7 % (11.5-14.5) Platelet Count 183 x10^3/uL (140-400) Neutrophils (%) (Auto) 76 % (31-73) Lymphocytes (%) (Auto) 12 % (24-48) Monocytes (%) (Auto) 10 % (0-9) Eosinophils (%) (Auto) 2 % (0-3) Basophils (%) (Auto) 0 % (0-3) Neutrophils # (Auto) 3.6 x10^3/uL (1.8-7.7) Lymphocytes # (Auto) 0.6 x10^3/uL (1.0-4.8) Monocytes # (Auto) 0.5 x10^3/uL (0.0-1.1) Eosinophils # (Auto) 0.1 x10^3/uL (0.0-0.7) Basophils # (Auto) 0.0 x10^3/uL (0.0-0.2) Sodium Level 139 mmol/L (136-145) Potassium Level 3.7 mmol/L (3.5-5.1) Chloride Level 103 mmol/L (98-107) Carbon Dioxide Level 31 mmol/L (21-32) Anion Gap 5 (6-14) Blood Urea Nitrogen 7 mg/dL (8-26) Creatinine 0.8 mg/dL (0.7-1.3) Estimated GFR (Cockcroft-Gault) 116.3 BUN/Creatinine Ratio 9 (6-20) Glucose Level 131 mg/dL (70-99) Calcium Level 8.4 mg/dL (8.5-10.1) Total Bilirubin 0.3 mg/dL (0.2-1.0) Aspartate Amino Transf (AST/SGOT) 20 U/L (15-37) Alanine Aminotransferase (ALT/SGPT) 19 U/L (16-63) Alkaline Phosphatase 52 U/L (46-116) Total Protein 6.6 g/dL (6.4-8.2) Albumin 2.9 g/dL (3.4-5.0) Albumin/Globulin Ratio 0.8 (1.0-1.7) Results All relevant outside records, renal labs, imaging studies, telemetry/EKG's were reviewed. MIKE DAVIS MD Oct 20, 2019 11:48
--- NOTE | 2019-10-20 14:11 | NUR ---
SW following pt. SW phoned and faxed orders for walker and HH to [facility]. [facility] to deliver walker to pt's room today. RN and pt notified.
[2019-10-20 15:00] VITALS: BP 134/81
--- NOTE | 2019-10-20 16:42 | PDOC ---
PULMONARY PROGRESS NOTES Subjective BETTER TODAY LESS SOA Vitals Vital Signs Date Time Temp Pulse Resp B/P (MAP) Pulse Ox O2 Delivery O2 Flow Rate FiO2 10/20/19 15:57 98 Nasal Cannula 2.0 10/20/19 15:00 98.4 66 18 134/81 (98) 98.4 ROS: No Nausea, No Chest Pain, No Abdominal Pain, No Increase Cough General: Alert Lungs: Other Cardiovascular: S1, S2 Abdomen: Soft Neuro Exam: Alert Extremities: No Edema Skin: Warm Labs Laboratory Tests Test 10/19/19 05:55 10/20/19 09:34 White Blood Count 4.1 x10^3/uL (4.0-11.0) 4.7 x10^3/uL (4.0-11.0) Red Blood Count 4.07 x10^6/uL (4.30-5.70) 4.11 x10^6/uL (4.30-5.70) Hemoglobin 12.3 g/dL (13.0-17.5) 12.4 g/dL (13.0-17.5) Hematocrit 37.5 % (39.0-53.0) 37.5 % (39.0-53.0) Mean Corpuscular Volume 92 fL (79-100) 91 fL (79-100) Mean Corpuscular Hemoglobin 30 pg (25-35) 30 pg (25-35) Mean Corpuscular Hemoglobin Concent 33 g/dL (31-37) 33 g/dL (31-37) Red Cell Distribution Width 14.5 % (11.5-14.5) 13.7 % (11.5-14.5) Platelet Count 158 x10^3/uL (140-400) 183 x10^3/uL (140-400) Neutrophils (%) (Auto) 68 % (31-73) 76 % (31-73) Lymphocytes (%) (Auto) 22 % (24-48) 12 % (24-48) Monocytes (%) (Auto) 9 % (0-9) 10 % (0-9) Eosinophils (%) (Auto) 1 % (0-3) 2 % (0-3) Basophils (%) (Auto) 0 % (0-3) 0 % (0-3) Neutrophils # (Auto) 2.8 x10^3/uL (1.8-7.7) 3.6 x10^3/uL (1.8-7.7) Lymphocytes # (Auto) 0.9 x10^3/uL (1.0-4.8) 0.6 x10^3/uL (1.0-4.8) Monocytes # (Auto) 0.4 x10^3/uL (0.0-1.1) 0.5 x10^3/uL (0.0-1.1) Eosinophils # (Auto) 0.0 x10^3/uL (0.0-0.7) 0.1 x10^3/uL (0.0-0.7) Basophils # (Auto) 0.0 x10^3/uL (0.0-0.2) 0.0 x10^3/uL (0.0-0.2) Sodium Level 140 mmol/L (136-145) 139 mmol/L (136-145) Potassium Level 3.8 mmol/L (3.5-5.1) 3.7 mmol/L (3.5-5.1) Chloride Level 106 mmol/L (98-107) 103 mmol/L (98-107) Carbon Dioxide Level 26 mmol/L (21-32) 31 mmol/L (21-32) Anion Gap 8 (6-14) 5 (6-14) Blood Urea Nitrogen 9 mg/dL (8-26) 7 mg/dL (8-26) Creatinine 0.8 mg/dL (0.7-1.3) 0.8 mg/dL (0.7-1.3) Estimated GFR (Cockcroft-Gault) 116.3 116.3 BUN/Creatinine Ratio 11 (6-20) 9 (6-20) Glucose Level 97 mg/dL (70-99) 131 mg/dL (70-99) Calcium Level 7.5 mg/dL (8.5-10.1) 8.4 mg/dL (8.5-10.1) Total Bilirubin 0.3 mg/dL (0.2-1.0) 0.3 mg/dL (0.2-1.0) Aspartate Amino Transf (AST/SGOT) 23 U/L (15-37) 20 U/L (15-37) Alanine Aminotransferase (ALT/SGPT) 19 U/L (16-63) 19 U/L (16-63) Alkaline Phosphatase 48 U/L (46-116) 52 U/L (46-116) Total Protein 5.9 g/dL (6.4-8.2) 6.6 g/dL (6.4-8.2) Albumin 2.7 g/dL (3.4-5.0) 2.9 g/dL (3.4-5.0) Albumin/Globulin Ratio 0.8 (1.0-1.7) 0.8 (1.0-1.7) Laboratory Tests Test 10/20/19 09:34 White Blood Count 4.7 x10^3/uL (4.0-11.0) Red Blood Count 4.11 x10^6/uL (4.30-5.70) Hemoglobin 12.4 g/dL (13.0-17.5) Hematocrit 37.5 % (39.0-53.0) Mean Corpuscular Volume 91 fL (79-100) Mean Corpuscular Hemoglobin 30 pg (25-35) Mean Corpuscular Hemoglobin Concent 33 g/dL (31-37) Red Cell Distribution Width 13.7 % (11.5-14.5) Platelet Count 183 x10^3/uL (140-400) Neutrophils (%) (Auto) 76 % (31-73) Lymphocytes (%) (Auto) 12 % (24-48) Monocytes (%) (Auto) 10 % (0-9) Eosinophils (%) (Auto) 2 % (0-3) Basophils (%) (Auto) 0 % (0-3) Neutrophils # (Auto) 3.6 x10^3/uL (1.8-7.7) Lymphocytes # (Auto) 0.6 x10^3/uL (1.0-4.8) Monocytes # (Auto) 0.5 x10^3/uL (0.0-1.1) Eosinophils # (Auto) 0.1 x10^3/uL (0.0-0.7) Basophils # (Auto) 0.0 x10^3/uL (0.0-0.2) Sodium Level 139 mmol/L (136-145) Potassium Level 3.7 mmol/L (3.5-5.1) Chloride Level 103 mmol/L (98-107) Carbon Dioxide Level 31 mmol/L (21-32) Anion Gap 5 (6-14) Blood Urea Nitrogen 7 mg/dL (8-26) Creatinine 0.8 mg/dL (0.7-1.3) Estimated GFR (Cockcroft-Gault) 116.3 BUN/Creatinine Ratio 9 (6-20) Glucose Level 131 mg/dL (70-99) Calcium Level 8.4 mg/dL (8.5-10.1) Total Bilirubin 0.3 mg/dL (0.2-1.0) Aspartate Amino Transf (AST/SGOT) 20 U/L (15-37) Alanine Aminotransferase (ALT/SGPT) 19 U/L (16-63) Alkaline Phosphatase 52 U/L (46-116) Total Protein 6.6 g/dL (6.4-8.2) Albumin 2.9 g/dL (3.4-5.0) Albumin/Globulin Ratio 0.8 (1.0-1.7) Medications Active Scripts Medications Dose Route/Sig Max Daily Dose Days Date Category Hydrocodone-Acetamin 7.5-325 (Hydrocodone/Acetaminophen) 1 Each Tablet 1 Each PO PRN Q8HRS PRN 10/18/19 Reported Amlodipine Besylate 5 Mg Tablet 5 Mg PO DAILY 10/18/19 Reported Doxycycline Hyclate 100 Mg Tablet 100 Mg PO BID 11/08/18 Rx Prednisone 50 Mg Tablet 50 Mg PO DAILY 7 11/08/18 Rx Flagyl (Metronidazole) 500 Mg Tablet 1 Tab PO BID 11/05/18 Rx Proair Hfa Inhaler (Albuterol Sulfate) 8.5 Gm Hfa.aer.ad 1 Puff INH PRN Q6HRS PRN 10/20/16 Rx Tessalon Perle (Benzonatate) 100 Mg Capsule 100 Mg PO TID PRN 10/20/16 Rx Zithromax (Azithromycin) 250 Mg Tablet 1 Pkg PO UD 10/20/16 Rx Impression . IMPRESSION: 1. Acute on chronic hypoxemic respiratory failure. 2. Acute exacerbation of chronic obstructive pulmonary disease. 3. Abnormal CT chest revealing pulmonary nodules. 4. Tobacco dependence, in remission. 5. Left thyroid nodule. CT CHEST There is no focal consolidation. Stable small pulmonary nodules with district sales representative nodules as follows: left upper lobe nodule measuring 0.5 cm (series 2 image 17) and left lower lobe nodule measuring 0.3 cm (image 56). Centrilobular emphysema. No pleural effusion is observed. There is no pneumothorax. Plan . BETTER OK TO D/C TOMORROW 10/21 1. From a pulmonary standpoint of view, the patient is doing well. Recommend continue medical management. 2. Follow up in my office once discharged. 3. Repeat CT chest in 6 months. 4. Continue oxygen supplementation, nebulized treatments. 5. DVT and GI prophylaxis. SAMARA GARCIA MD Oct 20, 2019 16:42
--- NOTE | 2019-10-20 18:00 | NUR ---
Patient refused to be discharged today, said he'll wait for his daughter to come tomorrow morning, notified Dr. Calhoun of patient's request.
[2019-10-20 19:20] VITALS: BP 109/55
[2019-10-20 23:25] VITALS: BP 119/74
[2019-10-21 03:25] VITALS: BP 124/73
--- NOTE | 2019-10-21 06:18 | PDOC ---
PROGRESS NOTES History of Present Illness History of Present Illness VTE Prophylaxis Ordered VTE Prophylaxis Devices: Yes VTE Pharmacological Prophylaxi: Yes discjharge dx Assessment/Plan IMPRESSION: 1. No pulmonary mass or consolidation. on ct 2. No acute abdominal process. BY CT 10/17 3. Left thyroid nodule measuring 2.7 cm should be further characterized with nonemergent thyroid ultrasound, if not performed previously. 4. intractable abdominal pain// abnormal weight loss 5. lactic acidosis 6. ACUTE RENAL INJURY, LIKELTY VASOMOTOR NEPHROPATHY 7. Centrilobular emphysema. No pleural effusion is observed. There is no pneumothorax. ON CT CHEST 10/17 8. REMOTE TOBACCO ABUSE 9. moderate protein-caloric malnutrition 10. weakness with gait instability plan admit iv fluid support GI CONSULT TSH DUONEBS QID PRN IV ZOFRAN 4 MG Q 4 HRS PRN NEPHROLOGY CONSULT UA Discharge Recommendations * Long-Term Unit * * * STILL WEAK AND DIZZY WITH STANDING 10/19 36 MIN PT EXAM, CHART REVIEW d/c planning time, > 50% of time spent with exam, chart review, pt care coordination Vitals Vitals Vital Signs Date Time Temp Pulse Resp B/P (MAP) Pulse Ox O2 Delivery O2 Flow Rate FiO2 10/21/19 03:25 98.7 76 18 124/73 (90) 100 Nasal Cannula 2.0 98.7 Physical Exam General: Alert, Oriented X3, Cooperative, No acute distress Heart: Regular rate, Normal S1 Lungs: Other Abdomen: Normal bowel sounds, Soft, Other (MILD TENDERNESS) Extremities: No cyanosis Labs LABS Laboratory Tests Test 10/20/19 09:34 White Blood Count 4.7 x10^3/uL (4.0-11.0) Red Blood Count 4.11 x10^6/uL (4.30-5.70) Hemoglobin 12.4 g/dL (13.0-17.5) Hematocrit 37.5 % (39.0-53.0) Mean Corpuscular Volume 91 fL (79-100) Mean Corpuscular Hemoglobin 30 pg (25-35) Mean Corpuscular Hemoglobin Concent 33 g/dL (31-37) Red Cell Distribution Width 13.7 % (11.5-14.5) Platelet Count 183 x10^3/uL (140-400) Neutrophils (%) (Auto) 76 % (31-73) Lymphocytes (%) (Auto) 12 % (24-48) Monocytes (%) (Auto) 10 % (0-9) Eosinophils (%) (Auto) 2 % (0-3) Basophils (%) (Auto) 0 % (0-3) Neutrophils # (Auto) 3.6 x10^3/uL (1.8-7.7) Lymphocytes # (Auto) 0.6 x10^3/uL (1.0-4.8) Monocytes # (Auto) 0.5 x10^3/uL (0.0-1.1) Eosinophils # (Auto) 0.1 x10^3/uL (0.0-0.7) Basophils # (Auto) 0.0 x10^3/uL (0.0-0.2) Sodium Level 139 mmol/L (136-145) Potassium Level 3.7 mmol/L (3.5-5.1) Chloride Level 103 mmol/L (98-107) Carbon Dioxide Level 31 mmol/L (21-32) Anion Gap 5 (6-14) Blood Urea Nitrogen 7 mg/dL (8-26) Creatinine 0.8 mg/dL (0.7-1.3) Estimated GFR (Cockcroft-Gault) 116.3 BUN/Creatinine Ratio 9 (6-20) Glucose Level 131 mg/dL (70-99) Calcium Level 8.4 mg/dL (8.5-10.1) Total Bilirubin 0.3 mg/dL (0.2-1.0) Aspartate Amino Transf (AST/SGOT) 20 U/L (15-37) Alanine Aminotransferase (ALT/SGPT) 19 U/L (16-63) Alkaline Phosphatase 52 U/L (46-116) Total Protein 6.6 g/dL (6.4-8.2) Albumin 2.9 g/dL (3.4-5.0) Albumin/Globulin Ratio 0.8 (1.0-1.7) Assessment and Plan Assessmemt and Plan Problems Medical Problems: (1) Acute renal insufficiency Status: Acute (2) COPD exacerbation Status: Acute (3) Dehydration Status: Acute (4) Generalized weakness Status: Acute Comment Review of Relevant I have reviewed the following items jaron (where applicable) has been applied. Labs Laboratory Tests Test 11/22/19 09:34 White Blood Count 4.7 x10^3/uL (4.0-11.0) Red Blood Count 4.11 x10^6/uL (4.30-5.70) Hemoglobin 12.4 g/dL (13.0-17.5) Hematocrit 37.5 % (39.0-53.0) Mean Corpuscular Volume 91 fL (79-100) Mean Corpuscular Hemoglobin 30 pg (25-35) Mean Corpuscular Hemoglobin Concent 33 g/dL (31-37) Red Cell Distribution Width 13.7 % (11.5-14.5) Platelet Count 183 x10^3/uL (140-400) Neutrophils (%) (Auto) 76 % (31-73) Lymphocytes (%) (Auto) 12 % (24-48) Monocytes (%) (Auto) 10 % (0-9) Eosinophils (%) (Auto) 2 % (0-3) Basophils (%) (Auto) 0 % (0-3) Neutrophils # (Auto) 3.6 x10^3/uL (1.8-7.7) Lymphocytes # (Auto) 0.6 x10^3/uL (1.0-4.8) Monocytes # (Auto) 0.5 x10^3/uL (0.0-1.1) Eosinophils # (Auto) 0.1 x10^3/uL (0.0-0.7) Basophils # (Auto) 0.0 x10^3/uL (0.0-0.2) Sodium Level 139 mmol/L (136-145) Potassium Level 3.7 mmol/L (3.5-5.1) Chloride Level 103 mmol/L (98-107) Carbon Dioxide Level 31 mmol/L (21-32) Anion Gap 5 (6-14) Blood Urea Nitrogen 7 mg/dL (8-26) Creatinine 0.8 mg/dL (0.7-1.3) Estimated GFR (Cockcroft-Gault) 116.3 BUN/Creatinine Ratio 9 (6-20) Glucose Level 131 mg/dL (70-99) Calcium Level 8.4 mg/dL (8.5-10.1) Total Bilirubin 0.3 mg/dL (0.2-1.0) Aspartate Amino Transf (AST/SGOT) 20 U/L (15-37) Alanine Aminotransferase (ALT/SGPT) 19 U/L (16-63) Alkaline Phosphatase 52 U/L (46-116) Total Protein 6.6 g/dL (6.4-8.2) Albumin 2.9 g/dL (3.4-5.0) Albumin/Globulin Ratio 0.8 (1.0-1.7) Laboratory Tests Test 10/20/19 09:34 White Blood Count 4.7 x10^3/uL (4.0-11.0) Red Blood Count 4.11 x10^6/uL (4.30-5.70) Hemoglobin 12.4 g/dL (13.0-17.5) Hematocrit 37.5 % (39.0-53.0) Mean Corpuscular Volume 91 fL (79-100) Mean Corpuscular Hemoglobin 30 pg (25-35) Mean Corpuscular Hemoglobin Concent 33 g/dL (31-37) Red Cell Distribution Width 13.7 % (11.5-14.5) Platelet Count 183 x10^3/uL (140-400) Neutrophils (%) (Auto) 76 % (31-73) Lymphocytes (%) (Auto) 12 % (24-48) Monocytes (%) (Auto) 10 % (0-9) Eosinophils (%) (Auto) 2 % (0-3) Basophils (%) (Auto) 0 % (0-3) Neutrophils # (Auto) 3.6 x10^3/uL (1.8-7.7) Lymphocytes # (Auto) 0.6 x10^3/uL (1.0-4.8) Monocytes # (Auto) 0.5 x10^3/uL (0.0-1.1) Eosinophils # (Auto) 0.1 x10^3/uL (0.0-0.7) Basophils # (Auto) 0.0 x10^3/uL (0.0-0.2) Sodium Level 139 mmol/L (136-145) Potassium Level 3.7 mmol/L (3.5-5.1) Chloride Level 103 mmol/L (98-107) Carbon Dioxide Level 31 mmol/L (21-32) Anion Gap 5 (6-14) Blood Urea Nitrogen 7 mg/dL (8-26) Creatinine 0.8 mg/dL (0.7-1.3) Estimated GFR (Cockcroft-Gault) 116.3 BUN/Creatinine Ratio 9 (6-20) Glucose Level 131 mg/dL (70-99) Calcium Level 8.4 mg/dL (8.5-10.1) Total Bilirubin 0.3 mg/dL (0.2-1.0) Aspartate Amino Transf (AST/SGOT) 20 U/L (15-37) Alanine Aminotransferase (ALT/SGPT) 19 U/L (16-63) Alkaline Phosphatase 52 U/L (46-116) Total Protein 6.6 g/dL (6.4-8.2) Albumin 2.9 g/dL (3.4-5.0) Albumin/Globulin Ratio 0.8 (1.0-1.7) Microbiology 10/18/19 Urine Culture - Final, Complete 10/18/19 Urine Culture Result 1 (GARRETT) - Final, Complete 10/17/19 Blood Culture - Preliminary, Resulted NO GROWTH AFTER 3 DAYS Medications Current Medications Sodium Chloride 1,000 ml @ 1,000 mls/hr 1X ONCE IV Last administered on 10/17/19at 17:16; Start 10/17/19 at 16:15; Stop 10/17/19 at 17:14; Status DC Famotidine (Pepcid Vial) 20 mg 1X ONCE IVP Last administered on 10/17/19at 17:16; Start 10/17/19 at 16:15; Stop 10/17/19 at 16:19; Status DC Ketorolac Tromethamine (Toradol 15mg Vial) 10 mg 1X ONCE IVP Last administered on 10/17/19at 17:16; Start 10/17/19 at 16:15; Stop 10/17/19 at 16:19; Status DC Dexamethasone Sodium Phosphate (Decadron) 10 mg 1X ONCE IVP Last administered on 10/17/19at 17:17; Start 10/17/19 at 16:15; Stop 10/17/19 at 16:19; Status DC Albuterol/ Ipratropium (Duoneb) 3 ml 1X ONCE NEB Last administered on 10/17/19at 16:23; Start 10/17/19 at 16:15; Stop 10/17/19 at 16:19; Status DC Iohexol (Omnipaque 300 Mg/ml) 75 ml 1X ONCE IV Last administered on 10/17/19at 17:04; Start 10/17/19 at 16:45; Stop 10/17/19 at 16:46; Status DC Info (CONTRAST GIVEN -- Rx MONITORING) 1 each PRN DAILY PRN MC SEE COMMENTS; Start 10/17/19 at 16:45; Stop 10/19/19 at 16:44; Status DC Sodium Chloride (Normal Saline Flush) 3 ml QSHIFT PRN IV AFTER MEDS AND BLOOD DRAWS; Start 10/17/19 at 18:30 Sodium Chloride 1,000 ml @ 100 mls/hr Q10H IV Last administered on 10/20/19at 05:57; Start 10/17/19 at 18:26; Stop 10/20/19 at 16:22; Status DC Ondansetron HCl (Zofran) 4 mg PRN Q4HRS PRN IV NAUSEA/VOMITING; Start 10/17/19 at 18:30 Acetaminophen (Tylenol) 650 mg PRN Q4HRS PRN GT TEMP OVER 100.4F OR MILD PAIN; Start 10/17/19 at 18:30 Clonidine HCl (Catapres) 0.1 mg PRN Q6HRS PRN PO SBP>160 OR DBP>90; Start 10/17/19 at 18:30 Docusate Sodium (Colace) 100 mg PRN BID PRN PO CONSTIPATION; Start 10/17/19 at 18:30 Albuterol Sulfate (Ventolin Neb Soln) 2.5 mg PRN Q4HRS PRN NEB SHORTNESS OF BREATH Last administered on 10/18/19at 08:34; Start 10/17/19 at 18:30 Guaifenesin (Robitussin) 200 mg PRN Q4HRS PRN PO COUGH Last administered on 10/19/19at 17:20; Start 10/17/19 at 18:30 Lorazepam (Ativan) 0.5 mg PRN Q4HRS PRN PO ANXIETY / AGITATION Last administered on 10/19/19at 05:15; Start 10/17/19 at 18:30 Sodium Chloride 1,000 ml @ 1,000 mls/hr 1X ONCE IV Last administered on 10/17/19at 21:01; Start 10/17/19 at 18:30; Stop 10/17/19 at 19:29; Status DC Ondansetron HCl (Zofran) 4 mg PRN Q8HRS PRN IV NAUSEA/VOMITING; Start 10/17/19 at 18:30; Stop 10/18/19 at 13:37; Status DC Pantoprazole Sodium (Protonix) 40 mg DAILYAC PO Last administered on 10/20/19 09:27; Start 10/18/19 at 10:30 Albuterol/ Ipratropium (Duoneb) 3 ml TID NEB Last administered on 10/18/19 11:48; Start 10/18/19 at 14:00; Stop 10/18/19 at 14:46; Status DC Amlodipine Besylate (Norvasc) 5 mg DAILY PO Last administered on 10/20/19 09:27; Start 10/19/19 at 09:00 Benzonatate (Tessalon Perle) 100 mg PRN TID PRN PO COUGH 1ST CHOICE Last administered on 10/20/19at 09:27; Start 10/18/19 at 14:15 Acetaminophen/ Hydrocodone Bitart (Lortab 7.5/325) 1 tab PRN Q8HRS PRN PO MODERATE PAIN 4-6 Last administered on 10/20/19 09:26; Start 10/18/19 at 14:15 Albuterol/ Ipratropium (Duoneb) 3 ml RTQID NEB Last administered on 10/20/19at 20:00; Start 10/18/19 at 16:00 Guaifenesin (MUCINEX ER with DM) 1 tab BID PO Last administered on 10/20/19at 21:50; Start 10/18/19 at 21:00 Active Scripts Active Pantoprazole Sodium (Pantoprazole Sodium) 40 Mg Tablet.dr 40 Mg PO DAILYAC 30 Days Dok (Docusate Sodium) 100 Mg Capsule 100 Mg PO PRN BID PRN 10 Days Mucinex Dm Er 600-30 Mg Tablet (Guaifenesin/Dextromethorphan) 1 Each Tab.er.12h 1 Tab PO BID 28 Days Acetaminophen Oral Liquid (Acetaminophen) 650 Mg/20.3 Ml Solution 650 Mg GT PRN Q4HRS PRN 30 Days Duoneb 0.5-3(2.5) Mg/3 Ml (Albuterol/Ipratropium) 3 Ml Ampul.neb 3 Ml NEB RTQID 30 Days Proair Hfa Inhaler (Albuterol Sulfate) 8.5 Gm Hfa.aer.ad 1 Puff INH PRN Q6HRS PRN Tessalon Perle (Benzonatate) 100 Mg Capsule 100 Mg PO TID PRN Reported Amlodipine Besylate 5 Mg Tablet 5 Mg PO DAILY Vitals/I & O Vital Sign - Last 24 Hours 10/20/19 10/20/19 10/20/19 10/20/19 07:00 07:22 08:00 09:26 Temp 98.1 98.1 Pulse 78 Resp 20 18 B/P (MAP) 121/74 (90) Pulse Ox 99 98 98 O2 Delivery Nasal Cannula Nasal Cannula Nasal Cannula Nasal Cannula O2 Flow Rate 2.0 2.0 2.0 2.0 10/20/19 10/20/19 10/20/19 10/20/19 09:27 10:30 11:00 11:18 Temp 97.8 97.8 Pulse 78 61 Resp 19 20 B/P (MAP) 121/74 115/88 (97) Pulse Ox 98 98 98 O2 Delivery Nasal Cannula Nasal Cannula Nasal Cannula O2 Flow Rate 2.0 2.0 2.0 10/20/19 10/20/19 10/20/19 10/20/19 15:00 15:57 19:20 20:00 Temp 98.4 98.9 98.4 98.9 Pulse 66 78 Resp 18 18 B/P (MAP) 134/81 (98) 109/55 (73) Pulse Ox 100 98 100 O2 Delivery Room Air Nasal Cannula Nasal Cannula Nasal Cannula O2 Flow Rate 2.0 2.0 2.0 10/20/19 10/20/19 10/21/19 20:06 23:25 03:25 Temp 98.3 98.7 98.3 98.7 Pulse 71 76 Resp 18 18 B/P (MAP) 119/74 (89) 124/73 (90) Pulse Ox 98 100 100 O2 Delivery Nasal Cannula Nasal Cannula Nasal Cannula O2 Flow Rate 2.0 2.0 2.0 Intake and Output 10/20/19 10/20/19 10/21/19 14:59 22:59 06:59 Intake Total 240 ml 180 ml Output Total 650 ml Balance -410 ml 180 ml Nutrition Consultation Dietary Evaluation: Recommendations by RD: Dietary education by RD, Increase Calorie Intake, P rotein supplementation Comments: ensure bid Expected Outcomes/Goals: to meet >75% est nutr needs via meals and supplements Interpretation of weight loss: >1-2% in 1 week Malnutrition Findings: Food and Nutrition Intake (Sev: <50% est energy req 5days Weight Status: Underweight SHAHRAM BHATIA MD Oct 21, 2019 06:18
[2019-10-21] MEDS: PANTOPRAZOLE 40 MG TABLET.DR. PO SCH (07:02)
[2019-10-21 07:49] VITALS: BP 127/81
[2019-10-21] MEDS: IPRATRPIUM/ALBUTEROL 0.5/2.5MG 3 ML NEBU. NEB SCH ×2 (09:02→11:49)
[2019-10-21] MEDS: amLODIPine BESYLATE 5 MG TABLET PO SCH (09:21)
[2019-10-21] MEDS: guaiFENesin DM 600/30MG 1 TAB TAB.ER.12H PO SCH (09:21)
--- NOTE | 2019-10-21 09:39 | PDOC ---
PULMONARY PROGRESS NOTES Subjective cough, sob better, no cp Vitals Vital Signs Date Time Temp Pulse Resp B/P (MAP) Pulse Ox O2 Delivery O2 Flow Rate FiO2 10/21/19 09:21 71 127/81 10/21/19 09:03 98 Nasal Cannula 2.0 10/21/19 07:49 98.2 18 98.2 ROS: No Nausea, No Chest Pain, No Abdominal Pain, No Increase Cough General: Alert Lungs: Other (deminished bs) Cardiovascular: S1, S2 Abdomen: Soft Neuro Exam: Alert Extremities: No Edema Skin: Warm Labs Laboratory Tests Test 10/20/19 09:34 White Blood Count 4.7 x10^3/uL (4.0-11.0) Red Blood Count 4.11 x10^6/uL (4.30-5.70) Hemoglobin 12.4 g/dL (13.0-17.5) Hematocrit 37.5 % (39.0-53.0) Mean Corpuscular Volume 91 fL (79-100) Mean Corpuscular Hemoglobin 30 pg (25-35) Mean Corpuscular Hemoglobin Concent 33 g/dL (31-37) Red Cell Distribution Width 13.7 % (11.5-14.5) Platelet Count 183 x10^3/uL (140-400) Neutrophils (%) (Auto) 76 % (31-73) Lymphocytes (%) (Auto) 12 % (24-48) Monocytes (%) (Auto) 10 % (0-9) Eosinophils (%) (Auto) 2 % (0-3) Basophils (%) (Auto) 0 % (0-3) Neutrophils # (Auto) 3.6 x10^3/uL (1.8-7.7) Lymphocytes # (Auto) 0.6 x10^3/uL (1.0-4.8) Monocytes # (Auto) 0.5 x10^3/uL (0.0-1.1) Eosinophils # (Auto) 0.1 x10^3/uL (0.0-0.7) Basophils # (Auto) 0.0 x10^3/uL (0.0-0.2) Sodium Level 139 mmol/L (136-145) Potassium Level 3.7 mmol/L (3.5-5.1) Chloride Level 103 mmol/L (98-107) Carbon Dioxide Level 31 mmol/L (21-32) Anion Gap 5 (6-14) Blood Urea Nitrogen 7 mg/dL (8-26) Creatinine 0.8 mg/dL (0.7-1.3) Estimated GFR (Cockcroft-Gault) 116.3 BUN/Creatinine Ratio 9 (6-20) Glucose Level 131 mg/dL (70-99) Calcium Level 8.4 mg/dL (8.5-10.1) Total Bilirubin 0.3 mg/dL (0.2-1.0) Aspartate Amino Transf (AST/SGOT) 20 U/L (15-37) Alanine Aminotransferase (ALT/SGPT) 19 U/L (16-63) Alkaline Phosphatase 52 U/L (46-116) Total Protein 6.6 g/dL (6.4-8.2) Albumin 2.9 g/dL (3.4-5.0) Albumin/Globulin Ratio 0.8 (1.0-1.7) Medications Active Scripts Medications Dose Route/Sig Max Daily Dose Days Date Category Hydrocodone-Acetamin 7.5-325 (Hydrocodone/Acetaminophen) 1 Each Tablet 1 Each PO PRN Q8HRS PRN 10/18/19 Reported Amlodipine Besylate 5 Mg Tablet 5 Mg PO DAILY 10/18/19 Reported Doxycycline Hyclate 100 Mg Tablet 100 Mg PO BID 11/08/18 Rx Prednisone 50 Mg Tablet 50 Mg PO DAILY 7 11/08/18 Rx Flagyl (Metronidazole) 500 Mg Tablet 1 Tab PO BID 11/05/18 Rx Proair Hfa Inhaler (Albuterol Sulfate) 8.5 Gm Hfa.aer.ad 1 Puff INH PRN Q6HRS PRN 10/20/16 Rx Tessalon Perle (Benzonatate) 100 Mg Capsule 100 Mg PO TID PRN 10/20/16 Rx Zithromax (Azithromycin) 250 Mg Tablet 1 Pkg PO UD 10/20/16 Rx Impression . IMPRESSION: 1. Acute on chronic hypoxemic respiratory failure. 2. Acute exacerbation of chronic obstructive pulmonary disease. 3. Abnormal CT chest revealing pulmonary nodules. 4. Tobacco dependence, in remission. 5. Left thyroid nodule. CT CHEST There is no focal consolidation. 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 Centrilobular emphysema. No pleural effusion is observed. There is no pneumothorax. Plan . BETTER OK TO D/C 1. From a pulmonary standpoint of view, the patient is doing well. Recommend continue medical management. 2. Follow up in dr hernandez's office once discharged. 3. Repeat CT chest in 6 months. 4. 02 titration, BD 5. DVT and GI prophylaxis. discussed w pt RODNEY GIRON MD Oct 21, 2019 09:38
[2019-10-21 11:23] VITALS: BP 138/78
[2019-10-21 14:24] VITALS: BP 151/86
--- NOTE | 2019-10-21 16:06 | NUR ---
Pt left unit by wheelchair via cab. Discharge paperwork discussed with pt. Pt stable upon discharge.
== END 2019-10-21 16:09 | disposition home health service (06) | DRG 682 ==
LOC: ER 15:56 → ED HOLD 18:04 → 6 SOUTH 21:46
PROVIDERS: ADMIT Family Medicine; ATTEND Family Medicine
DX: N17.0 Acute kidney failure with tubular necrosis (principal); J96.21 Acute and chronic respiratory failure with hypoxia; J44.1 Chronic obstructive pulmonary disease with (acute) exacerbation; E44.0 Moderate protein-calorie malnutrition; E87.2 Acidosis; Z68.1 Body mass index [BMI] 19.9 or less, adult; E04.1 Nontoxic single thyroid nodule; E78.00 Pure hypercholesterolemia, unspecified; E78.5 Hyperlipidemia, unspecified; E86.0 Dehydration; F17.201 Nicotine dependence, unspecified, in remission; I10 Essential (primary) hypertension; I25.10 Atherosclerotic heart disease of native coronary artery without angina pectoris; I25.2 Old myocardial infarction; Z79.82 Long term (current) use of aspirin; Z80.9 Family history of malignant neoplasm, unspecified; Z82.49 Family history of ischemic heart disease and other diseases of the circulatory system; Z91.013 Allergy to seafood; Z95.5 Presence of coronary angioplasty implant and graft; Z99.81 Dependence on supplemental oxygen
CPT/HCPCS: 36415; 71260; 74177; 76536; 80053; 80069; 81001; 82553; 83605; 83690; 83735; 84439; 84484; 85025; 87040; 87086; 93005; 94640; 96374; 96375; J1100; J1885; J3490; J7030; J7613; J7620; Q9967; 97116; 99285-25; G0378

== ENCOUNTER → 2020-08-27 | Outpatient (CLI) | payer OTHER, MEDICAID ==
[~2020-08-27] MED LIST changes: +ACET650S GT; +AMLO5TAB10 PO; +CONTRAST GIVEN. MC PRN; +DOCU-153 PO; +GUAI-108 PO; +HYDR-2763 PO; +IOHEXOL 240 MG/ML 50ML VIAL. PO ONE; +IOHEXOL 300 MG/ML 100ML VIAL. IV ONE; +IPRA3AMP29 NEB; +PANT40TA77 PO
[2020-08-27 10:14] LABS: CREATININE 1.1 mg/dL (0.7-1.3); GFR 80.3
--- NOTE | 2020-08-27 15:37 | RAD ---
CT abdomen and pelvis with contrast HISTORY: Ventral hernia TECHNIQUE: Computed tomographic imaging of the abdomen and pelvis was performed following the uneventful intravenous demonstration of 75 cc Omnipaque 300 iodinated contrast material. COMPARISON: October 17, 2019 PQRS Compliance Statement: One or more of the following individualized dose reduction techniques were utilized for this examination: 1. Automated exposure control 2. Adjustment of the mA and/or kV according to patient size 3. Use of iterative reconstruction technique FINDINGS: Right middle lobe nodule image #4 measuring 6 mm. Left lower lobe nodule image #20 measuring 7 mm. Several other tiny pleural-based right lower lobe nodules are present. These remain stable when compared with the October 17, 2019 study. Coronary artery calcifications are present. Calcified granulomata are in the liver and spleen. Liver and spleen otherwise appear unremarkable. Gallbladder negative Adrenal glands negative Kidneys stable Pancreas negative Small focal ventral hernia is seen that has herniated omentum. Moderately severe stool retention. Extensive calcified atherosclerotic plaquing is seen in the arteries of the abdomen and pelvis. Bulging lumbar discs with no significant central or foraminal stenosis. Bladder unremarkable Seminal vesicles and prostate unremarkable IMPRESSION: Visualized pulmonary nodules appear stable Focal ventral hernia in the supra umbilical region has herniated omentum. Omental infarction is not excluded. Moderately severe stool retention. Extensive atherosclerosis of the visualized arteries Electronically signed by: Uriel Brown MD (08/27/2020 3:34 PM) [id number]
== END | disposition home or self-care (01) ==
LOC: CT 09:44
PROVIDERS: ATTEND Specialist
DX: K43.9 Ventral hernia without obstruction or gangrene (principal); R91.8 Other nonspecific abnormal finding of lung field; I25.10 Atherosclerotic heart disease of native coronary artery without angina pectoris; I70.8 Atherosclerosis of other arteries; I70.0 Atherosclerosis of aorta; D73.89 Other diseases of spleen
CPT/HCPCS: 36415; 74177; 82565; Q9966; Q9967

== ENCOUNTER → 2020-09-05 | Outpatient (CLI) | payer OTHER, MEDICAID ==
[~2020-09-05] MED LIST changes: +AMLO-186 PO; +AMLO-187 PO; -AMLO5TAB10 PO; +ASPI-630 PO; -CONTRAST GIVEN. MC PRN; +CRESTOR40 MG PO; +FLUT1DIS5 IH; +HYDR-3135 PO; -IOHEXOL 240 MG/ML 50ML VIAL. PO ONE; -IOHEXOL 300 MG/ML 100ML VIAL. IV ONE; +NAPR500T8 PO; +UMEC62.5 IH
[2020-09-05 11:16] LABS: BASO % 1 % (0-3); EOS # 0.2 x10^3/uL (0.0-0.7); EOS % 7 % (0-3); HEMATOCRIT 39.8 % (39.0-53.0); HEMOGLOBIN 13.1 g/dL (13.0-17.5); LYMPH # 0.7 x10^3/uL (1.0-4.8); LYMPH % 22 % (24-48); MEAN CORPUSCULAR HEMOGLOBIN 30 pg (25-35); MEAN CORPUSCULAR HGB CONC 33 g/dL (31-37); MEAN CORPUSCULAR VOLUME 90 fL (79-100); MONO # 0.5 x10^3/uL (0.0-1.1); MONO % 15 % (0-9); NEUT # 1.7 x10^3/uL (1.8-7.7); NEUT % 55 % (31-73); PLATELET COUNT 186 x10^3/uL (140-400); RED BLOOD COUNT 4.41 x10^6/uL (4.30-5.70); RED CELL DISTRIBUTION WIDTH 14.2 % (11.5-14.5); WHITE BLOOD COUNT 3.1 x10^3/uL (4.0-11.0)
[2020-09-05 11:29] LABS: PROTHROMBIN TIME PATIENT 14.5 SEC (11.7-14.0)
[2020-09-05 11:54] LABS: ALBUMIN 3.3 g/dL (3.4-5.0); TOTAL PROTEIN 7.1 g/dL (6.4-8.2)
[2020-09-05 11:55] LABS: ALBUMIN/GLOBULIN RATIO 0.9 (1.0-1.7); GFR 89.6; POTASSIUM 4.6 mmol/L (3.5-5.1); TOTAL BILIRUBIN 0.3 mg/dL (0.2-1.0)
--- NOTE | 2020-09-06 14:15 | NUR ---
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 Colunga, no further orders.
== END ==
LOC: SURGPAT 10:23
PROVIDERS: ATTEND Specialist
DX: Z01.812 Encounter for preprocedural laboratory examination (principal); K43.9 Ventral hernia without obstruction or gangrene; R09.02 Hypoxemia
CPT/HCPCS: 36415; 80053; 85025; 85610

== ENCOUNTER → 2020-09-06 | Outpatient (CLI) | payer OTHER, MEDICAID | LOC: LAB 11:54 | PROVIDERS: ATTEND Specialist | DX: Z01.812 Encounter for preprocedural laboratory examination (principal); Z20.828 Contact with and (suspected) exposure to other viral communicable diseases | CPT/HCPCS: U0003-CS ==

== ENCOUNTER → 2020-09-23 | Outpatient (CLI) | payer OTHER, MEDICAID ==
[~2020-09-23] MED LIST changes: +ZOLPIDEM 5 MG TABLET. PO ONE
--- NOTE | 2020-09-24 12:59 | EEG ---
DATE OF SERVICE: 09/23/2020 POLYSOMNOGRAM REPORT OBJECTIVE: The patient is a 70-year-old male with insomnia and awakening short of breath. Previous study, 10/28/2017, showed no clinically significant sleep disordered breathing. Height 5 feet 3 inches, weight 114 pounds, body mass index 20. Wana sleep score 7. INTERPRETATION: Sleep architecture is characterized by sleep efficiency of 67% across the 6.8 hours of recording time. There was a decreased amount of stage 3 sleep. Sleep onset latency is 24.5 minutes. Respiratory monitoring shows a total of 11 events for an apnea-hypopnea index of 2.4 events per hour of sleep. The minimum oxygen saturation is 86%. Periodic limb movements of sleep occur at the rate of 3 per hour. No significant cardiac arrhythmias are observed. IMPRESSION: This second polysomnogram is again negative for any type of sleep disordered breathing. A minimal number of periodic limb movements of sleep are observed. The patient continues to have a decreased sleep efficiency and lack of slow-wave sleep, possibly related to a sleep maintenance insomnia. RECOMMENDATION: Follow up with physicians. No additional sleep related treatment required. Thank you for letting us help with the patient's care. PATTIE FLYNN MD DR: MAHNAZ/pippa JOB#: [id number] / [id number] DR. MERLIN Yeung ALANNA MD REISZ, GEORGE MD MTDD
== END ==
LOC: SLPLAB 19:19
PROVIDERS: ATTEND Internal Medicine Pulmonary Disease
DX: G47.61 Periodic limb movement disorder (principal); G47.63 Sleep related bruxism; G47.36 Sleep related hypoventilation in conditions classified elsewhere
CPT/HCPCS: 95810

== ENCOUNTER 2020-12-19 08:58 | Emergency (ER) | payer OTHER, MEDICAID ==
[~2020-12-19] VITALS: Ht 162.6 cm; Wt 53.6 kg
[~2020-12-19 08:58] MED LIST changes: -ZOLPIDEM 5 MG TABLET. PO ONE
[2020-12-19 09:03] VITALS: BP 127/64
[2020-12-19] MEDS ORDERED: DOXY100C2 PO (09:14)
--- NOTE | 2020-12-19 09:14 | PHYS DOC ---
Past Medical History Past Medical History: COPD, High Cholesterol, Heart Disease, Hypertension Past Surgical History: Other Additional Past Surgical Histo: 4 stents Smoking Status: Former Smoker Alcohol Use: Occasionally Drug Use: None General Adult EDM: Chief Complaint: SEXUALLY TRANSMITTED DISEASE HPI: HPI: Patient is a 70 year old male who presented to ER wanted to be treated for STD. Patient said he was told by his girlfriend that she was tested positive for some for STD. Patient said he is not sure what she has. Patient otherwise denies any symptom, denies any penile discharge, no penile rash, no urinary symptom, no abdominal pain, no fever, no rash, no nausea or vomiting Review of Systems: Review of Systems: Constitutional: Denies fever or chills. [] Eyes: Denies change in visual acuity. [] HENT: Denies nasal congestion or sore throat. [] Respiratory: Denies cough or shortness of breath. [] Cardiovascular: Denies chest pain or edema. [] GI: Denies abdominal pain, nausea, vomiting, bloody stools or diarrhea. [] : Denies dysuria. [] Musculoskeletal: Denies back pain or joint pain. [] Integument: Denies rash. [] Neurologic: Denies headache, focal weakness or sensory changes. [] Endocrine: Denies polyuria or polydipsia. [] Lymphatic: Denies swollen glands. [] Psychiatric: Denies depression or anxiety. [] Heart Score: Risk Factors: Risk Factors: DM, Current or recent (<one month) smoker, HTN, HLP, family history of CAD, obesity. Risk Scores: Score 0 - 3: 2.5% MACE over next 6 weeks - Discharge Home Score 4 - 6: 20.3% MACE over next 6 weeks - Admit for Clinical Observation Score 7 - 10: 72.7% MACE over next 6 weeks - Early Invasive Strategies Allergies: Allergies: Allergies Coded Allergies Type Severity Reaction Last Updated Verified No Known Drug Allergies 11/08/18 No Physical Exam: PE: Constitutional: Well developed, well nourished, no acute distress, non-toxic appearance. [] HENT: Normocephalic, atraumatic, bilateral external ears normal, oropharynx moist, no oral exudates, nose normal. [] Eyes: PERRLA, EOMI, conjunctiva normal, no discharge. [] Neck: Normal range of motion, no tenderness, supple, no stridor. [] Cardiovascular:Heart rate regular rhythm, no murmur [] Lungs & Thorax: Bilateral breath sounds clear to auscultation [] Abdomen: Bowel sounds normal, soft, no tenderness, no masses, no pulsatile masses. [] Skin: Warm, dry, no erythema, no rash. [] Back: No tenderness, no CVA tenderness. [] Extremities: No tenderness, no cyanosis, no clubbing, ROM intact, no edema. [] Neurologic: Alert and oriented X 3, normal motor function, normal sensory function, no focal deficits noted. [] Psychologic: Affect normal, judgement normal, mood normal. [] Current Patient Data: Labs: Current Medications Medications (Trade) Dose Ordered Sig/Candace Route PRN Reason Start Time Stop Time Status Last Admin Dose Admin Ceftriaxone Sodium (Rocephin Im) 500 mg 1X ONCE IM 12/19/20 09:15 12/19/20 09:16 DC EKG: EKG: [] Radiology/Procedures: Radiology/Procedures: [] Course & Med Decision Making: Course & Med Decision Making Pertinent Labs and Imaging studies reviewed. (See chart for details) [] Dragon Disclaimer: [employer] Disclaimer: This electronic medical record was generated, in whole or in part, using a voice recognition dictation system. Departure Departure Impression: Primary Impression: Exposure to STD Disposition: 01 DC HOME SELF CARE/HOMELESS Condition: STABLE Referrals: ENOCH BOYER MD (PCP) PLEASE FOLLOW UP WITH YOUR DOCTOR OR THE LOCAL HEALTH DEPARTMENT FOR OUTPATIENT STD TESTING NEXT WEEK. DO NOT HAVE SEXUAL INTERCOURSE UNTIL YOU AND YOUR PARTNER ARE DONE WITH TREATMENT . Patient Instructions: Sexually Transmitted Disease Additional Instructions: Thank you for visiting our Emergency Department. We appreciate you trusting us with your care. If any additional problems come up don't hesitate to return to visit us. Please follow up with your primary care provider so they can plan additional care if needed and know about the problem that you had. If symptoms worsen come back to the Emergency Department. Any concerning symptoms that start such as chest pain, shortness of air, weakness or numbness on one side of the body, running high fevers or any other concerning symptoms return to the ER. Scripts Doxycycline Hyclate (DOXYCYCLINE HYCLATE) 100 Mg Capsule 1 CAP PO BID for 14 Days, #28 CAP Prov: PRICE GUZMÁN DO 12/19/20 PRICE GUZMÁN DO Dec 19, 2020 09:14
[2020-12-19] MEDS ORDERED: cefTRIAXone IM 250 MG VIAL IM ONE (09:15)
== END 2020-12-19 09:42 | disposition home or self-care (01) ==
LOC: ER 08:58
DX: A64 Unspecified sexually transmitted disease (principal); J44.9 Chronic obstructive pulmonary disease, unspecified; E78.00 Pure hypercholesterolemia, unspecified; I11.9 Hypertensive heart disease without heart failure; Z87.891 Personal history of nicotine dependence; Z98.890 Other specified postprocedural states; Z20.2 Contact with and (suspected) exposure to infections with a predominantly sexual mode of transmission
CPT/HCPCS: 96372; 99283; J0696

== ENCOUNTER 2021-07-04 12:51 | Inpatient (IN) | payer OTHER, MEDICAID ==
[~2021-07-04] VITALS: Ht 162.6 cm; Wt 49.9 kg
[~2021-07-04 12:51] MED LIST changes: +DOCU-148 PO; -DOCU-153 PO; +DOXY100C3 PO; +LACT1CAP19 PO; +LISI-517 PO; +METH4TAB2 PO; +METO-239 PO; +PRED20TA PO
[2021-07-04 13:54] LABS: CALCIUM 8.8 mg/dL (8.5-10.1); CREATININE 0.8 mg/dL (0.7-1.3); GFR 115.6; POTASSIUM 4.1 mmol/L (3.5-5.1)
--- NOTE | 2021-07-04 13:56 | RAD ---
XR CHEST 1V 07/04/2021 1:14 PM INDICATION: Shortness of breath COMPARISON: 06/26/2021 TECHNIQUE: Portable frontal view of the chest is provided. FINDINGS: The cardiomediastinal silhouette is within normal limits. Calcified plaque involving the thoracic aor ta. Lungs are otherwise clear. There are no significant pleural effusions. There is no pulmonary vascular congestion. No pneumothora x. No suspicious osseous abnormality. IMPRESSION: There is no acute cardiopulmonary process. Electronically signed by: Trixie Smith MD (07/04/2021 1:53 PM) [facility]
--- NOTE | 2021-07-04 13:56 | RAD ---
EXAM: Left hand, 3 views. HISTORY: Fall. Pain. COMPARISON: None. FINDINGS: 3 views of the left hand are obtained. There is no acute fracture, dislocation or subluxati on. There is no radiodense foreign body. There are calcifications within the ventral wrist soft tissu es are likely vascular. IMPRESSION: No acute osseous finding. Electronically signed by: Ladonna Khalil MD (07/04/2021 1:54 PM) [id number]
[2021-07-04 14:00] LABS: ALBUMIN 2.3 g/dL (3.4-5.0); ALBUMIN/GLOBULIN RATIO 0.6 (1.0-1.7); TOTAL BILIRUBIN 0.2 mg/dL (0.2-1.0); TOTAL PROTEIN 6.3 g/dL (6.4-8.2)
[2021-07-04 14:24] LABS: BASO % 0 % (0-3); EOS # 0.2 x10^3/uL (0.0-0.7); EOS % 3 % (0-3); HEMOGLOBIN 12.6 g/dL (13.0-17.5); LYMPH # 0.5 x10^3/uL (1.0-4.8); LYMPH % 10 % (24-48); MEAN CORPUSCULAR HEMOGLOBIN 31 pg (25-35); MEAN CORPUSCULAR HGB CONC 33 g/dL (31-37); MEAN CORPUSCULAR VOLUME 93 fL (79-100); MONO # 0.7 x10^3/uL (0.0-1.1); MONO % 14 % (0-9); NEUT % 73 % (31-73); PLATELET COUNT 219 x10^3/uL (140-400); RED BLOOD COUNT 4.11 x10^6/uL (4.30-5.70); RED CELL DISTRIBUTION WIDTH 14.6 % (11.5-14.5); WHITE BLOOD COUNT 5.5 x10^3/uL (4.0-11.0)
[2021-07-04] MEDS ORDERED: IPRATRPIUM/ALBUTEROL 0.5/2.5MG 3 ML NEBU. NEB ONE (14:30)
[2021-07-04] MEDS ORDERED: DEXAMETHASONE SOD PHOS 4 MG/ML VIAL IVP ONE (14:30)
--- NOTE | 2021-07-04 15:17 | RAD ---
CT HEAD/BRAIN WO History: Head trauma. Comparison: None. Technique: Noncontrast CT imaging was performed of the head. Findings: No intracranial hemorrhage. No mass effect. No hydrocephalus. No evidence of territorial infarction. Relative hypodensity in a left postcentral gyrus may represent sequela of old infarct. Hypodensity o f the periventricular and deep white matter consistent with chronic microvascular ischemic change. Ve rtebral and internal carotid artery calcifications. Postsurgical changes of the lenses. Imaged paranasal sinuses and mastoid air cells are clear. The sca lp and calvarium are unremarkable. Impression: 1. No acute intracranial abnormality. ----- Exposure: One or more of the following individualized dose reduction techniques were utilized for thi s examination: 1. Automated exposure control 2. Adjustment of the mA and/or kV according to patient size 3. Use of iterative reconstruction technique. Electronically signed by: Honorio Vaughn MD (07/04/2021 3:15 PM) [id number]
--- NOTE | 2021-07-04 15:39 | EKG ---
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
--- NOTE | 2021-07-04 17:23 | ED.ADGEN ---
Past Medical History Past Medical History: COPD, CVA, High Cholesterol, Heart Disease, Hypertension, CA, Other Additional Past Medical Histor: HERNIA Past Surgical History: No Surgical History Additional Past Surgical Histo: Carotid enderctomy Smoking Status: Unknown if ever smoked Alcohol Use: None Drug Use: None General Adult EDM: Chief Complaint: SHORTNESS OF BREATH HPI: HPI: Patient is a 71-year-old male with past medical history of COPD who presents to the emergency room complaining of shortness of breath. Patient states that it is gotten significantly worse over the last couple of days. He states he tried to get breathing treatment at home without any relief. He states he does feel significantly better after the breathing treatment in the ambulance. He has had a mild cough. He denies any kind of fevers. Review of Systems: Review of Systems: Complete ROS is negative unless otherwise documented in HPI Current Medications: Current Medications Medications (Trade) Dose Ordered Sig/Candace Start Time Stop Time Status Last Admin Dose Admin Albuterol/ Ipratropium (Duoneb) 3 ml 1X ONCE 07/04/21 14:30 07/04/21 14:31 DC 07/04/21 14:39 3 ML Dexamethasone Sodium Phosphate (Decadron) 10 mg 1X ONCE 07/04/21 14:30 07/04/21 14:31 DC 07/04/21 14:43 10 MG Allergies: Allergies: Allergies Coded Allergies Type Severity Reaction Last Updated Verified No Known Drug Allergies 11/08/18 No Physical Exam: PE: General: Awake, alert, NAD. Well Nourished, well hydrated. Cooperative HEENT: Atraumatic, EOMI, PERRL, airway patent, moist oral mucosa Neck: Supple, trachea midline Respiratory: Decreased breath sounds bilaterally, diffuse wheezing in all lung bases CV: RRR, no murmur, cap refill <2 GI: Soft, nondistended, nontender, no masses MSK: No obvious deformities Skin: Warm, dry, intact Neuro: A&O x3, speech NL, sensory and motor grossly intact, no focal deficits Psych: Normal affect, normal mood, not suicidal or homicidal Current Patient Data: Labs: Laboratory Tests Test 07/04/21 13:31 07/04/21 14:15 Sodium Level 137 mmol/L (136-145) Potassium Level 4.1 mmol/L (3.5-5.1) Chloride Level 105 mmol/L (98-107) Carbon Dioxide Level 24 mmol/L (21-32) Anion Gap 8 (6-14) Blood Urea Nitrogen 13 mg/dL (8-26) Creatinine 0.8 mg/dL (0.7-1.3) Estimated GFR (Cockcroft-Gault) 115.6 BUN/Creatinine Ratio 16 (6-20) Glucose Level 101 mg/dL (70-99) H Calcium Level 8.8 mg/dL (8.5-10.1) Total Bilirubin 0.2 mg/dL (0.2-1.0) Aspartate Amino Transferase (AST) 20 U/L (15-37) Alanine Aminotransferase (ALT) 29 U/L (16-63) Alkaline Phosphatase 69 U/L (46-116) Troponin I Quantitative < 0.017 ng/mL (0.000-0.055) NA-Urt-U-Type Natriuretic Peptide 321 pg/mL (0-124) H Total Protein 6.3 g/dL (6.4-8.2) L Albumin 2.3 g/dL (3.4-5.0) L Albumin/Globulin Ratio 0.6 (1.0-1.7) L White Blood Count 5.5 x10^3/uL (4.0-11.0) Red Blood Count 4.11 x10^6/uL (4.30-5.70) L Hemoglobin 12.6 g/dL (13.0-17.5) L Hematocrit 38.0 % (39.0-53.0) L Mean Corpuscular Volume 93 fL (79-100) Mean Corpuscular Hemoglobin 31 pg (25-35) Mean Corpuscular Hemoglobin Concent 33 g/dL (31-37) Red Cell Distribution Width 14.6 % (11.5-14.5) H Platelet Count 219 x10^3/uL (140-400) Neutrophils (%) (Auto) 73 % (31-73) Lymphocytes (%) (Auto) 10 % (24-48) L Monocytes (%) (Auto) 14 % (0-9) H Eosinophils (%) (Auto) 3 % (0-3) Basophils (%) (Auto) 0 % (0-3) Neutrophils # (Auto) 4.0 x10^3/uL (1.8-7.7) Lymphocytes # (Auto) 0.5 x10^3/uL (1.0-4.8) L Monocytes # (Auto) 0.7 x10^3/uL (0.0-1.1) Eosinophils # (Auto) 0.2 x10^3/uL (0.0-0.7) Basophils # (Auto) 0.0 x10^3/uL (0.0-0.2) Laboratory Tests 07/04/21 14:15 Laboratory Tests 07/04/21 13:31 Vital Signs: Vital Signs Date Time Temp Pulse Resp B/P (MAP) Pulse Ox O2 Delivery O2 Flow Rate FiO2 07/04/21 16:04 92 155/102 (119) 96 07/04/21 14:40 Room Air 07/04/21 12:54 98.5 18 98.5 EKG: EKG: [] Heart Score: C/O Chest Pain: N/A Risk Factors: Risk Factors: DM, Current or recent (<one month) smoker, HTN, HLP, family history of CAD, obesity. Risk Scores: Score 0 - 3: 2.5% MACE over next 6 weeks - Discharge Home Score 4 - 6: 20.3% MACE over next 6 weeks - Admit for Clinical Observation Score 7 - 10: 72.7% MACE over next 6 weeks - Early Invasive Strategies Radiology/Procedures: Radiology/Procedures: [] Course & Med Decision Making: Course & Med Decision Making Pertinent Labs and Imaging studies reviewed. (See chart for details) Patient is 71-year-old male who presents to the emergency room complaining of a COPD exacerbation. Upon arrival to the emergency room anytime patient moves or tries to stand up he becomes hypoxic and develops respiratory distress. Patient was given steroids and DuoNeb treatments. Lab work is otherwise normal. I discussed the case with the hospitalist. Patient will be admitted for COPD exacerbation. Of note patient did have a significant fall at home due to weakness. X-ray of the hand and CT of the head were done and were normal. Dragon Disclaimer: Dragon Disclaimer: This electronic medical record was generated, in whole or in part, using a voice recognition dictation system. Departure Departure Impression: Primary Impression: COPD with acute bronchitis Disposition: ADMITTED INPATIENT Condition: STABLE Referrals: ENOCH BOYER MD (PCP) ARLINE ROBERT MD Jul 04, 2021 17:22
[2021-07-04 19:45] VITALS: BP 161/103
[2021-07-04 22:45] VITALS: BP 143/75
[2021-07-04] MEDS ORDERED: ALBUTEROL SULFATE 2.5 MG/3 ML NEBU. NEB PRN (22:45)
[2021-07-04] MEDS ORDERED: ACETAMINOPHEN 325 MG TABLET. PO PRN (22:45)
[2021-07-04] MEDS ORDERED: ONDANSETRON PF 4 MG/2 ML VIAL. IVP PRN (22:45)
--- NOTE | 2021-07-04 22:45 | PDOC1 ---
History and Physical Date of Admission Date of Admission DATE: 07/04/21 TIME: 22:44 Identification/Chief Complaint Chief Complaint Shortness of breath Source Source: Patient History of Present Illness History of Present Illness Mr Davison is a 71yo male w/ PMHx COPD, CVA s/p carotid endartectomy, High Cholesterol, CAD s/p stenting, Hypertension, ex smoker who presents to ED complaining of progressive shortness of breath. Worse over the past 2 days states he tried to get breathing treatment at home without any relief. EMS noted O2 saturations of 80% on arrival, improved slightly with nebulizers en-route. He has had a mild cough. No recent travel or sick contacts. He has not had COVID 19 vaccination and has frequent hospital visits for shortness of breath On further ROS notes he fell yesterday evening. He also notes and struck his head as well as chest pain he does have bruising on his right mu-ism and right chest wall he also pulled left wrist and has difficulty making a fist does have swelling there. CT head, left hand radiograph and chest radiograph with no acute findings Labs with WBC 5.5, Hb 12.6, platelets 219, metabolic panel within normal limits, albumin 2.3, NT proBNP 321, troponin 0, rapid SARS-CoV-2 negative EKG sinus rhythm rate of 80 bpm with some PVCs and PACs no ST segment abnormalities or T wave abnormalities QTC 386 Admitted for further care Past Medical History Cardiovascular: CAD, HTN, Hyperlipidemia Pulmonary: COPD, Other CENTRAL NERVOUS SYSTEM: CVA GI: GERD, Peptic Ulcer disease Musculoskeletal: Osteoarthritis Renal/: No pertinent hx Past Surgical History Past Surgical History: Cataract Removal, Other Family History Family History: Heart Disease Social History Smoke: Quit ALCOHOL: none Drugs: None Current Medications Current Medications Current Medications Dexamethasone Sodium Phosphate (Decadron) 10 mg 1X ONCE IVP Last administered on 07/04/21at 14:43; Start 07/04/21 at 14:30; Stop 07/04/21 at 14:31; Status DC Albuterol/ Ipratropium (Duoneb) 3 ml 1X ONCE NEB Last administered on 07/04/21at 14:39; Start 07/04/21 at 14:30; Stop 07/04/21 at 14:31; Status DC Active Scripts Active Medrol (Methylprednisolone) 4 Mg Tab.ds.pk 1 Pkg PO UD Lisinopril 5 Mg Tablet 5 Mg PO DAILY 90 Days Metoprolol Succinate ( Xl ) (Metoprolol Succinate) 25 Mg Tab.er.24h 25 Mg PO DAILY 90 Days Pantoprazole Sodium (Pantoprazole Sodium) 40 Mg Tablet.dr 40 Mg PO DAILYAC 30 Days Duoneb 0.5-3(2.5) Mg/3 Ml (Albuterol/Ipratropium) 3 Ml Ampul.neb 3 Ml NEB RTQID 30 Days Proair Hfa Inhaler (Albuterol Sulfate) 8.5 Gm Hfa.aer.ad 1 Puff INH PRN Q6HRS PRN Reported Advair 500-50 Diskus (Fluticasone/Salmeterol) 1 Each Disk.w.dev 1 Puff IH BID Incruse Ellipta (Umeclidinium [place]) 62.5 Mcg Blst.w.dev 62.5 Mcg IH DAILY Crestor (Rosuvastatin Calcium) 40 Mg Tablet 20 Mg PO HS Amlodipine Besylate 10 Mg Tablet 10 Mg PO DAILY Aspirin 81 Mg Tab.chew 1 Tab PO DAILY Allergies Allergies: Coded Allergies: No Known Drug Allergies (Unverified , 11/08/18) ROS General: YES: Fatigue, Malaise; No: Chills, Night Sweats, Appetite, Other PSYCHOLOGICAL ROS: YES: Disorientation; No: Anxiety, Behavioral Disorder, Concentration difficultie, Decreased libido, Depression, Hallucinations, Hostility, Irritablity, Memory difficulties, Mood Swings, Obsessive thoughts, Physical abuse, Sexual abuse, Sleep disturbances, Suicidal ideation, Other Eyes: No Blurry vision, No Decreased vision, No Double vision, No Dry eyes, No Excessive tearing, No Eye Pain, No Itchy Eyes, No Loss of vision, No Photophobia, No Scotomata, No Uses contacts, No Uses glasses, No Other HEENT: YES: Heacaches; No: Visual Changes, Hearing change, Nasal congestion, Nasal discharge, Oral lesions, Sinus pain, Sore Throat, Epistaxis, Sneezing, Snoring, Tinnitus, Vertigo, Vocal changes, Other ALLERGY AND IMMUNOLOGY: No: Hives, Insect Bite Sensitivity, Itchy/Watery Eyes, Nasal Congestion, Post Nasal Drip, Seasonal Allergies, Other Hematological and Lymphatic: No: Bleeding Problems, Blood Clots, Blood Transfusions, Brusing, Night Sweats, Pallor, Swollen Lymph Nodes, Other ENDOCRINE: No: Breast Changes, Galactorrhea, Hair Pattern Changes, Hot Flashes, Malaise/lethargy, Mood Swings, Palpitations, Polydipsia/polyuria, Skin Changes, Temperature Intolerance, Unexpected Weight Changes, Other Breast: No New/Changing Breast Lumps, No Nipple changes, No Nipple discharge, No Other Respiratory: YES: Cough, Shortness of breath, SOB with excertion, Tachypnea, Wheezing; No: Hemoptysis, Orthopnea, Pleuritic Pain, Sputum Changes, Stridor, Other Cardiovascular: No Chest Pain, No Palpitations, No Orthopnea, No Paroxysmal Noc. Dyspnea, No Edema, No Lt Headedness, No Other Gastrointestinal: No Nausea, No Vomiting, No Abdominal Pain, No Diarrhea, No Constipation, No Melena, No Hematochezia, No Other Genitourinary: No Dysuria, No Frequency, No Incontinence, No Hematuria, No Retention, No Discharge, No Urgency, No Pain, No Flank Pain, No Other, No , No , No , No , No , No , No Musculoskeletal: Yes Gait Disturbance, Yes Joint Pain, Yes Joint Stiffness, Yes Muscular Weakness; No Joint Swelling, No Muscle Pain, No Pain In:, No Swelling In:, No Other Neurological: Yes Gait Disturbance; No Behavorial Changes, No Bowel/Bladder ControlChng, No Confusion, No Dizziness, No Headaches, No Impaired Coord/balance, No Memory Loss, No Numbne ss/Tingling, No Seizures, No Speech Problems, No Tremors, No Visual Changes, No Weakness, No Other Skin: No Dry Skin, No Eczema, No Hair Changes, No Lumps, No Mole Changes, No Mottling, No Nail Changes, No Pruritus, No Rash, No Skin Lesion Changes, No Other, No Acne Physical Exam General: Alert, Oriented X3, Cooperative, mild distress HEENT: PERRLA, EOMI, Mucous membr. moist/pink, Other (Right mu-ism bruising) Lungs: Other (Bialteral wheezing) Heart: S1S2, RRR, no thrills, no rubs, no gallops, no murmurs Abdomen: Normal bowel sounds, Soft, No tenderness, No hepatosplenomegaly, No masses Rectal Exam: not examined Extremities: No clubbing, No cyanosis, No edema, Normal pulses, No tenderness/swelling Skin: No rashes, No breakdown, No significant lesion Neuro: Normal gait, Normal speech, Strength at 5/5 X4 ext, Normal tone, Sensation intact, Cranial nerves 3-12 NL, Reflexes 2+ Psych/Mental Status: Mental status NL, Mood NL Vitals Vitals Vital Signs Date Time Temp Pulse Resp B/P (MAP) Pulse Ox O2 Delivery O2 Flow Rate FiO2 07/04/21 19:45 98.2 82 20 161/103 (122) 96 Room Air 98.2 Labs Labs Laboratory Tests Test 07/04/21 13:31 07/04/21 14:15 07/04/21 19:17 Sodium Level 137 mmol/L (136-145) Potassium Level 4.1 mmol/L (3.5-5.1) Chloride Level 105 mmol/L (98-107) Carbon Dioxide Level 24 mmol/L (21-32) Anion Gap 8 (6-14) Blood Urea Nitrogen 13 mg/dL (8-26) Creatinine 0.8 mg/dL (0.7-1.3) Estimated GFR (Cockcroft-Gault) 115.6 BUN/Creatinine Ratio 16 (6-20) Glucose Level 101 mg/dL (70-99) Calcium Level 8.8 mg/dL (8.5-10.1) Total Bilirubin 0.2 mg/dL (0.2-1.0) Aspartate Amino Transf (AST/SGOT) 20 U/L (15-37) Alanine Aminotransferase (ALT/SGPT) 29 U/L (16-63) Alkaline Phosphatase 69 U/L (46-116) Troponin I Quantitative < 0.017 ng/mL (0.000-0.055) JD-Jns-B-Type Natriuretic Peptide 321 pg/mL (0-124) Total Protein 6.3 g/dL (6.4-8.2) Albumin 2.3 g/dL (3.4-5.0) Albumin/Globulin Ratio 0.6 (1.0-1.7) White Blood Count 5.5 x10^3/uL (4.0-11.0) Red Blood Count 4.11 x10^6/uL (4.30-5.70) Hemoglobin 12.6 g/dL (13.0-17.5) Hematocrit 38.0 % (39.0-53.0) Mean Corpuscular Volume 93 fL (79-100) Mean Corpuscular Hemoglobin 31 pg (25-35) Mean Corpuscular Hemoglobin Concent 33 g/dL (31-37) Red Cell Distribution Width 14.6 % (11.5-14.5) Platelet Count 219 x10^3/uL (140-400) Neutrophils (%) (Auto) 73 % (31-73) Lymphocytes (%) (Auto) 10 % (24-48) Monocytes (%) (Auto) 14 % (0-9) Eosinophils (%) (Auto) 3 % (0-3) Basophils (%) (Auto) 0 % (0-3) Neutrophils # (Auto) 4.0 x10^3/uL (1.8-7.7) Lymphocytes # (Auto) 0.5 x10^3/uL (1.0-4.8) Monocytes # (Auto) 0.7 x10^3/uL (0.0-1.1) Eosinophils # (Auto) 0.2 x10^3/uL (0.0-0.7) Basophils # (Auto) 0.0 x10^3/uL (0.0-0.2) SARS-CoV-2 Antigen (Rapid) Negative (NEGATIVE) Laboratory Tests Test 07/04/21 13:31 07/04/21 14:15 07/04/21 19:17 Sodium Level 137 mmol/L (136-145) Potassium Level 4.1 mmol/L (3.5-5.1) Chloride Level 105 mmol/L (98-107) Carbon Dioxide Level 24 mmol/L (21-32) Anion Gap 8 (6-14) Blood Urea Nitrogen 13 mg/dL (8-26) Creatinine 0.8 mg/dL (0.7-1.3) Estimated GFR (Cockcroft-Gault) 115.6 BUN/Creatinine Ratio 16 (6-20) Glucose Level 101 mg/dL (70-99) Calcium Level 8.8 mg/dL (8.5-10.1) Total Bilirubin 0.2 mg/dL (0.2-1.0) Aspartate Amino Transf (AST/SGOT) 20 U/L (15-37) Alanine Aminotransferase (ALT/SGPT) 29 U/L (16-63) Alkaline Phosphatase 69 U/L (46-116) Troponin I Quantitative < 0.017 ng/mL (0.000-0.055) CT-Fba-C-Type Natriuretic Peptide 321 pg/mL (0-124) Total Protein 6.3 g/dL (6.4-8.2) Albumin 2.3 g/dL (3.4-5.0) Albumin/Globulin Ratio 0.6 (1.0-1.7) White Blood Count 5.5 x10^3/uL (4.0-11.0) Red Blood Count 4.11 x10^6/uL (4.30-5.70) Hemoglobin 12.6 g/dL (13.0-17.5) Hematocrit 38.0 % (39.0-53.0) Mean Corpuscular Volume 93 fL (79-100) Mean Corpuscular Hemoglobin 31 pg (25-35) Mean Corpuscular Hemoglobin Concent 33 g/dL (31-37) Red Cell Distribution Width 14.6 % (11.5-14.5) Platelet Count 219 x10^3/uL (140-400) Neutrophils (%) (Auto) 73 % (31-73) Lymphocytes (%) (Auto) 10 % (24-48) Monocytes (%) (Auto) 14 % (0-9) Eosinophils (%) (Auto) 3 % (0-3) Basophils (%) (Auto) 0 % (0-3) Neutrophils # (Auto) 4.0 x10^3/uL (1.8-7.7) Lymphocytes # (Auto) 0.5 x10^3/uL (1.0-4.8) Monocytes # (Auto) 0.7 x10^3/uL (0.0-1.1) Eosinophils # (Auto) 0.2 x10^3/uL (0.0-0.7) Basophils # (Auto) 0.0 x10^3/uL (0.0-0.2) SARS-CoV-2 Antigen (Rapid) Negative (NEGATIVE) Images Images Chest radiograph: The cardiomediastinal silhouette is within normal limits. Calcified plaque involving the thoracic aorta. Lungs are otherwise clear. There are no significant pleural effusions. There is no pulmonary vascular congestion. No pneumothorax. No suspicious osseous abnormality. IMPRESSION: There is no acute cardiopulmonary process. CT head: No intracranial hemorrhage. No mass effect. No hydrocephalus. No evidence of territorial infarction. Relative hypodensity in a left postcentral gyrus may represent sequela of old infarct. Hypodensity of the periventricular and deep white matter consistent with chronic microvascular ischemic change. Vertebral and internal carotid artery calcifications. Postsurgical changes of the lenses. Imaged paranasal sinuses and mastoid air cells are clear. The scalp and calvarium are unremarkable. Impression: 1. No acute intracranial abnormality. Left hand XR: 3 views of the left hand are obtained. There is no acute fracture, dislocation or subluxation. There is no radiodense foreign body. There are calcifications within the ventral wrist soft tissues are likely vascular. IMPRESSION: No acute osseous finding. VTE Prophylaxis Ordered VTE Prophylaxis Devices: No VTE Pharmacological Prophylaxi: Yes Assessment/Plan Assessment/Plan A/P: Acute hypoxic respiratory failure - likely due to COPD exacerbation. Steroids, nebulizers, wean O2 as tolerated COPD with acute bronchtiis, acute exacerbation - as above. 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
[2021-07-05 03:00] VITALS: BP 156/84
[2021-07-05] MEDS: methylPREDNISolone SOD SUCC PF 40 MG/ML VIAL. IV SCH ×3 (05:25→20:21)
[2021-07-05 07:00] VITALS: BP 141/85
[2021-07-05] MEDS: BUDESONIDE 0.5 MG/2 ML NEBU. NEB SCH ×2 (08:00→20:46)
[2021-07-05 08:42] LABS: CALCIUM 9.1 mg/dL (8.5-10.1); CREATININE 0.8 mg/dL (0.7-1.3); GFR 115.6; POTASSIUM 4.3 mmol/L (3.5-5.1)
[2021-07-05] MEDS: ASPIRIN CHEWABLE 81 MG TABLET. PO SCH (08:57)
[2021-07-05] MEDS: PANTOPRAZOLE 40 MG TABLET.DR. PO SCH (08:57)
[2021-07-05] MEDS: METOPROLOL SUCC 24HR ER 25 MG TAB.ER.24H. PO SCH (08:58)
[2021-07-05] MEDS: ENOXAPARIN 40 MG/0.4 ML SYRINGE. SQ SCH (09:08)
[2021-07-05] MEDS: IPRATRPIUM/ALBUTEROL 0.5/2.5MG 3 ML NEBU. NEB SCH ×3 (11:51→20:45)
--- NOTE | 2021-07-05 12:37 | PDOC ---
[facility] PROGRESS NOTE Date of Service DOS: DATE: 07/05/21 TIME: 12:34 Chief Complaint Chief Complaint Acute hypoxic respiratory failure - likely due to COPD exacerbation. Steroids, nebulizers, wean O2 as tolerated COPD with acute bronchtiis, acute exacerbation - as above. 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 Given his frequent hospitalizations and falls he needs skilled placement and possibly jail care placement History of Present Illness History of Present Illness Mr Davison is a 71yo male w/ PMHx COPD, CVA s/p carotid endartectomy, High Cholesterol, CAD s/p stenting, Hypertension, ex smoker who presents to ED complaining of progressive shortness of breath. Worse over the past 2 days states he tried to get breathing treatment at home without any relief. EMS noted O2 saturations of 80% on arrival, improved slightly with nebulizers en-route. He has had a mild cough. No recent travel or sick contacts. He has not had COVID 19 vaccination and has frequent hospital visits for shortness of breath On further ROS notes he fell yesterday evening. He also notes and struck his head as well as chest pain he does have bruising on his right congregation and right chest wall he also pulled left wrist and has difficulty making a fist does have swelling there. CT head, left hand radiograph and chest radiograph with no acute findings Labs with WBC 5.5, Hb 12.6, platelets 219, metabolic panel within normal limits, albumin 2.3, NT proBNP 321, troponin 0, rapid SARS-CoV-2 negative EKG sinus rhythm rate of 80 bpm with some PVCs and PACs no ST segment abnormalities or T wave abnormalities QTC 386 07/05/2021: Patient breathing on room air, afebrile. COVID-19 PCR pending. Still concerned about some audible bronchospasms. We will continue steroids, breathing treatments, and Pulmicort. Patient concerned about being by himself at this time. Recommend working with PT. If feeling better he may be able to discharge home with his daughter, who is on her way in town. Vitals/I&O Vitals/I&O: Vital Signs Date Time Temp Pulse Resp B/P (MAP) Pulse Ox O2 Delivery O2 Flow Rate FiO2 07/05/21 08:58 73 141/85 07/05/21 07:00 97.9 20 94 Room Air 97.9 I & O 07/04/21 07/04/21 07/05/21 15:00 23:00 07:00 Intake Total 840 ml Balance 840 ml Physical Exam General: Alert, Oriented X3, Cooperative, mild distress Heart: Regular rate Lungs: Clear, Other Abdomen: Normal bowel sounds, Soft, No tenderness, No hepatosplenomegaly, No masses Extremities: No clubbing, No cyanosis, No edema, Normal pulses, No tenderness/swelling Skin: No rashes, No breakdown, No significant lesion Labs Labs: Laboratory Tests Test 07/04/21 13:31 07/04/21 14:15 07/04/21 19:17 07/05/21 05:55 Sodium Level 137 mmol/L (136-145) 137 mmol/L (136-145) Potassium Level 4.1 mmol/L (3.5-5.1) 4.3 mmol/L (3.5-5.1) Chloride Level 105 mmol/L (98-107) 100 mmol/L (98-107) Carbon Dioxide Level 24 mmol/L (21-32) 30 mmol/L (21-32) Anion Gap 8 (6-14) 7 (6-14) Blood Urea Nitrogen 13 mg/dL (8-26) 14 mg/dL (8-26) Creatinine 0.8 mg/dL (0.7-1.3) 0.8 mg/dL (0.7-1.3) Estimated GFR (Cockcroft-Gault) 115.6 115.6 BUN/Creatinine Ratio 16 (6-20) Glucose Level 101 mg/dL (70-99) 158 mg/dL (70-99) Calcium Level 8.8 mg/dL (8.5-10.1) 9.1 mg/dL (8.5-10.1) Total Bilirubin 0.2 mg/dL (0.2-1.0) Aspartate Amino Transf (AST/SGOT) 20 U/L (15-37) Alanine Aminotransferase (ALT/SGPT) 29 U/L (16-63) Alkaline Phosphatase 69 U/L (46-116) Troponin I Quantitative < 0.017 ng/mL (0.000-0.055) YF-Hpn-T-Type Natriuretic Peptide 321 pg/mL (0-124) Total Protein 6.3 g/dL (6.4-8.2) Albumin 2.3 g/dL (3.4-5.0) Albumin/Globulin Ratio 0.6 (1.0-1.7) White Blood Count 5.5 x10^3/uL (4.0-11.0) Red Blood Count 4.11 x10^6/uL (4.30-5.70) Hemoglobin 12.6 g/dL (13.0-17.5) Hematocrit 38.0 % (39.0-53.0) Mean Corpuscular Volume 93 fL (79-100) Mean Corpuscular Hemoglobin 31 pg (25-35) Mean Corpuscular Hemoglobin Concent 33 g/dL (31-37) Red Cell Distribution Width 14.6 % (11.5-14.5) Platelet Count 219 x10^3/uL (140-400) Neutrophils (%) (Auto) 73 % (31-73) Lymphocytes (%) (Auto) 10 % (24-48) Monocytes (%) (Auto) 14 % (0-9) Eosinophils (%) (Auto) 3 % (0-3) Basophils (%) (Auto) 0 % (0-3) Neutrophils # (Auto) 4.0 x10^3/uL (1.8-7.7) Lymphocytes # (Auto) 0.5 x10^3/uL (1.0-4.8) Monocytes # (Auto) 0.7 x10^3/uL (0.0-1.1) Eosinophils # (Auto) 0.2 x10^3/uL (0.0-0.7) Basophils # (Auto) 0.0 x10^3/uL (0.0-0.2) SARS-CoV-2 Antigen (Rapid) Negative (NEGATIVE) Comment Review of Relevant I have reviewed the following items jaron (where applicable) has been applied. Medications: Current Medications Medications (Trade) Dose Ordered Sig/Candace Route PRN Reason Start Time Stop Time Status Last Admin Dose Admin Dexamethasone Sodium Phosphate (Decadron) 10 mg 1X ONCE IVP 07/04/21 14:30 07/04/21 14:31 DC 07/04/21 14:43 Albuterol/ Ipratropium (Duoneb) 3 ml 1X ONCE NEB 07/04/21 14:30 07/04/21 14:31 DC 07/04/21 14:39 Enoxaparin Sodium (Lovenox 40mg Syringe) 40 mg DAILY SQ 07/05/21 09:00 07/05/21 09:08 Methylprednisolone Sodium Succinate (SOLU-Medrol 40MG VIAL) 40 mg Q8HRS IV 07/05/21 06:00 07/05/21 05:25 Amlodipine Besylate (Norvasc) 10 mg DAILY PO 07/05/21 09:00 07/05/21 08:57 Aspirin (Aspirin Chewable) 81 mg DAILY08 PO 07/05/21 08:00 07/05/21 08:57 Metoprolol Succinate (Toprol Xl) 25 mg DAILY PO 07/05/21 09:00 07/05/21 08:58 Pantoprazole Sodium (Protonix) 40 mg DAILYAC PO 07/05/21 07:30 07/05/21 08:57 Justifications for Admission Other Justification JADEN RIVAS MD Jul 05, 2021 12:36
[2021-07-05 15:00] VITALS: BP 117/63
[2021-07-05] MEDS: guaiFENesin DM 200MG/20MG 10 ML SYRUP PO PRN (17:07)
[2021-07-05 19:00] VITALS: BP 123/69
[2021-07-05] MEDS: ATORVASTATIN CALCIUM 40 MG TABLET. PO SCH (20:21)
[2021-07-05 23:00] VITALS: BP 128/71
[2021-07-06] VITALS (7 sets, daily range): BP systolic 96–138; BP diastolic 63–85
[2021-07-06] MEDS: methylPREDNISolone SOD SUCC PF 40 MG/ML VIAL. IV SCH (05:40)
[2021-07-06] MEDS: IPRATRPIUM/ALBUTEROL 0.5/2.5MG 3 ML NEBU. NEB SCH ×4 (06:18→20:41)
[2021-07-06] MEDS: BUDESONIDE 0.5 MG/2 ML NEBU. NEB SCH ×2 (06:18→20:41)
[2021-07-06] MEDS: PANTOPRAZOLE 40 MG TABLET.DR. PO SCH (09:19)
[2021-07-06] MEDS: ASPIRIN CHEWABLE 81 MG TABLET. PO SCH (09:19)
[2021-07-06] MEDS: ENOXAPARIN 40 MG/0.4 ML SYRINGE. SQ SCH (09:21)
[2021-07-06] MEDS: METOPROLOL SUCC 24HR ER 25 MG TAB.ER.24H. PO SCH (09:21)
--- NOTE | 2021-07-06 11:42 | PDOC ---
[facility] PROGRESS NOTE Date of Service DOS: DATE: 07/06/21 TIME: 11:39 Chief Complaint Chief Complaint Acute hypoxic respiratory failure - likely due to COPD exacerbation. Steroids, nebulizers, wean O2 as tolerated COPD with acute bronchtiis, acute exacerbation - as above. 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 Given his frequent hospitalizations and falls he needs skilled placement and possibly shelter care placement History of Present Illness History of Present Illness Mr Davison is a 71yo male w/ PMHx COPD, CVA s/p carotid endartectomy, High Cholesterol, CAD s/p stenting, Hypertension, ex smoker who presents to ED complaining of progressive shortness of breath. Worse over the past 2 days states he tried to get breathing treatment at home without any relief. EMS noted O2 saturations of 80% on arrival, improved slightly with nebulizers en-route. He has had a mild cough. No recent travel or sick contacts. He has not had COVID 19 vaccination and has frequent hospital visits for shortness of breath On further ROS notes he fell yesterday evening. He also notes and struck his head as well as chest pain he does have bruising on his right buddhism and right chest wall he also pulled left wrist and has difficulty making a fist does have swelling there. CT head, left hand radiograph and chest radiograph with no acute findings Labs with WBC 5.5, Hb 12.6, platelets 219, metabolic panel within normal limits, albumin 2.3, NT proBNP 321, troponin 0, rapid SARS-CoV-2 negative EKG sinus rhythm rate of 80 bpm with some PVCs and PACs no ST segment abnormalities or T wave abnormalities QTC 386 07/06/2021: Patient currently breathing on 2 L nasal cannula, afebrile. Continue duo nebulizers, and steroids. He will discharge tomorrow home with his daughter when she gets in town to provide safe discharge plan. Plan to wean O2 and discharge home with family care tomorrow with p.o. prednisone taper. 07/05/2021: Patient breathing on room air, afebrile. COVID-19 PCR pending. Still concerned about some audible bronchospasms. We will continue steroids, breathing treatments, and Pulmicort. Patient concerned about being by himself at this time. Recommend working with PT. If feeling better he may be able to discharge home with his daughter, who is on her way in town. Vitals/I&O Vitals/I&O: Vital Signs Date Time Temp Pulse Resp B/P (MAP) Pulse Ox O2 Delivery O2 Flow Rate FiO2 07/06/21 11:21 95 Nasal Cannula 2.0 07/06/21 09:21 72 128/69 07/06/21 07:00 97.3 18 97.3 I & O 07/05/21 07/05/21 07/06/21 15:00 23:00 07:00 Intake Total 620 ml 400 ml 0 ml Output Total 0 ml 0 ml Balance 620 ml 400 ml 0 ml Physical Exam General: Alert, Oriented X3, Cooperative, mild distress Heart: Regular rate Lungs: Clear, Other Abdomen: Normal bowel sounds, Soft, No tenderness, No hepatosplenomegaly, No masses Extremities: No clubbing, No cyanosis, No edema, Normal pulses, No tenderness/swelling Skin: No rashes, No breakdown, No significant lesion Comment Review of Relevant I have reviewed the following items jaron (where applicable) has been applied. Medications: Current Medications Medications (Trade) Dose Ordered Sig/Candace Route PRN Reason Start Time Stop Time Status Last Admin Dose Admin Atorvastatin Calcium (Lipitor) 80 mg QHS PO 07/05/21 21:00 07/05/21 20:21 Justifications for Admission Other Justification JADEN RIVAS MD Jul 06, 2021 11:42
[2021-07-06] MEDS: guaiFENesin DM 200MG/20MG 10 ML SYRUP PO PRN (16:32)
[2021-07-06] MEDS: ATORVASTATIN CALCIUM 40 MG TABLET. PO SCH (20:48)
[2021-07-07 03:00] VITALS: BP 121/75
[2021-07-07] MEDS: guaiFENesin DM 200MG/20MG 10 ML SYRUP PO PRN ×2 (05:44→17:06)
[2021-07-07 07:00] VITALS: BP 133/74
[2021-07-07] MEDS: IPRATRPIUM/ALBUTEROL 0.5/2.5MG 3 ML NEBU. NEB SCH ×4 (07:01→18:01)
[2021-07-07] MEDS: BUDESONIDE 0.5 MG/2 ML NEBU. NEB SCH ×2 (07:01→18:02)
[2021-07-07 07:12] LABS: BASO % 0 % (0-3); EOS % 0 % (0-3); HEMOGLOBIN 12.9 g/dL (13.0-17.5); LYMPH # 0.9 x10^3/uL (1.0-4.8); LYMPH % 10 % (24-48); MEAN CORPUSCULAR HEMOGLOBIN 30 pg (25-35); MEAN CORPUSCULAR HGB CONC 33 g/dL (31-37); MEAN CORPUSCULAR VOLUME 92 fL (79-100); MONO # 0.8 x10^3/uL (0.0-1.1); MONO % 9 % (0-9); NEUT % 81 % (31-73); PLATELET COUNT 318 x10^3/uL (140-400); RED BLOOD COUNT 4.23 x10^6/uL (4.30-5.70); RED CELL DISTRIBUTION WIDTH 14.4 % (11.5-14.5); WHITE BLOOD COUNT 8.7 x10^3/uL (4.0-11.0)
[2021-07-07 08:14] LABS: CALCIUM 8.5 mg/dL (8.5-10.1); GFR 89.4
[2021-07-07] MEDS: ASPIRIN CHEWABLE 81 MG TABLET. PO SCH (09:40)
[2021-07-07] MEDS: METOPROLOL SUCC 24HR ER 25 MG TAB.ER.24H. PO SCH (09:41)
[2021-07-07] MEDS: PANTOPRAZOLE 40 MG TABLET.DR. PO SCH (09:41)
[2021-07-07] MEDS: methylPREDNISolone SOD SUCC PF 40 MG/ML VIAL. IV SCH (09:42)
[2021-07-07] MEDS: ENOXAPARIN 40 MG/0.4 ML SYRINGE. SQ SCH (09:44)
[2021-07-07 11:00] VITALS: BP_SYST 100; BP_SYST 121; BP_SYST 79; BP_DIAS 57; BP_DIAS 69; BP_DIAS 73
--- NOTE | 2021-07-07 14:39 | PDOC ---
[facility] PROGRESS NOTE Date of Service DOS: DATE: 07/07/21 TIME: 14:34 Chief Complaint Chief Complaint Orthostatic hypotension we will apply compression stockings and hold an tihypertensive medications. Acute hypoxic respiratory failure - likely due to COPD exacerbation. Steroids, nebulizers, wean O2 as tolerated COPD with acute bronchtiis, acute exacerbation - as above. 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 Given his frequent hospitalizations and falls he needs skilled placement and possibly nursing home care placement History of Present Illness History of Present Illness Mr Davison is a 71yo male w/ PMHx COPD, CVA s/p carotid endartectomy, High Cholesterol, CAD s/p stenting, Hypertension, ex smoker who presents to ED complaining of progressive shortness of breath. Worse over the past 2 days states he tried to get breathing treatment at home without any relief. EMS noted O2 saturations of 80% on arrival, improved slightly with nebulizers en-route. He has had a mild cough. No recent travel or sick contacts. He has not had COVID 19 vaccination and has frequent hospital visits for shortness of breath On further ROS notes he fell yesterday evening. He also notes and struck his head as well as chest pain he does have bruising on his right latter-day and right chest wall he also pulled left wrist and has difficulty making a fist does have swelling there. CT head, left hand radiograph and chest radiograph with no acute findings Labs with WBC 5.5, Hb 12.6, platelets 219, metabolic panel within normal limits, albumin 2.3, NT proBNP 321, troponin 0, rapid SARS-CoV-2 negative EKG sinus rhythm rate of 80 bpm with some PVCs and PACs no ST segment abnormalities or T wave abnormalities QTC 386 08/07/2021 No acute events overnight. Patient is saturating at 98% on 2 L nasal cannula which is his baseline. Unfortunately he had a fall last night and also this mo rning. He does experience some lightheadedness. Orthostatic vital signs are positive. Will recommend patient to go to nursing facility rather than go home with his sister. 07/06/2021: Patient currently breathing on 2 L nasal cannula, afebrile. Continue duo nebulizers, and steroids. He will discharge tomorrow home with his daughter when she gets in town to provide safe discharge plan. Plan to wean O2 and discharge home with family care tomorrow with p.o. prednisone taper. 07/05/2021: Patient breathing on room air, afebrile. COVID-19 PCR pending. Still concerned about some audible bronchospasms. We will continue steroids, breathing treatments, and Pulmicort. Patient concerned about being by himself at this time. Recommend working with PT. If feeling better he may be able to discharge home with his daughter, who is on her way in town. Vitals/I&O Vitals/I&O: Vital Signs Date Time Temp Pulse Resp B/P (MAP) Pulse Ox O2 Delivery O2 Flow Rate FiO2 07/07/21 11:15 98 Nasal Cannula 2.0 07/07/21 11:00 71 79/57 (64) 07/07/21 11:00 97.7 20 97.7 I & O 07/06/21 07/06/21 07/07/21 15:00 23:00 07:00 Output Total 600 ml Balance -600 ml Physical Exam General: Alert, Oriented X3, Cooperative, mild distress Heart: Regular rate Lungs: Clear, Other Abdomen: Normal bowel sounds, Soft, No tenderness, No hepatosplenomegaly, No masses Extremities: No clubbing, No cyanosis, No edema, Normal pulses, No tenderness/swelling Skin: No rashes, No breakdown, No significant lesion Labs Labs: Laboratory Tests Test 07/07/21 05:35 White Blood Count 8.7 x10^3/uL (4.0-11.0) Red Blood Count 4.23 x10^6/uL (4.30-5.70) Hemoglobin 12.9 g/dL (13.0-17.5) Hematocrit 39.0 % (39.0-53.0) Mean Corpuscular Volume 92 fL (79-100) Mean Corpuscular Hemoglobin 30 pg (25-35) Mean Corpuscular Hemoglobin Concent 33 g/dL (31-37) Red Cell Distribution Width 14.4 % (11.5-14.5) Platelet Count 318 x10^3/uL (140-400) Neutrophils (%) (Auto) 81 % (31-73) Lymphocytes (%) (Auto) 10 % (24-48) Monocytes (%) (Auto) 9 % (0-9) Eosinophils (%) (Auto) 0 % (0-3) Basophils (%) (Auto) 0 % (0-3) Neutrophils # (Auto) 7.0 x10^3/uL (1.8-7.7) Lymphocytes # (Auto) 0.9 x10^3/uL (1.0-4.8) Monocytes # (Auto) 0.8 x10^3/uL (0.0-1.1) Eosinophils # (Auto) 0.0 x10^3/uL (0.0-0.7) Basophils # (Auto) 0.0 x10^3/uL (0.0-0.2) Sodium Level 139 mmol/L (136-145) Potassium Level 4.0 mmol/L (3.5-5.1) Chloride Level 104 mmol/L (98-107) Carbon Dioxide Level 30 mmol/L (21-32) Anion Gap 5 (6-14) Blood Urea Nitrogen 20 mg/dL (8-26) Creatinine 1.0 mg/dL (0.7-1.3) Estimated GFR (Cockcroft-Gault) 89.4 Glucose Level 97 mg/dL (70-99) Calcium Level 8.5 mg/dL (8.5-10.1) Comment Review of Relevant I have reviewed the following items jaron (where applicable) has been applied. Medications: Current Medications Medications (Trade) Dose Ordered Sig/Candace Route PRN Reason Start Time Stop Time Status Last Admin Dose Admin Methylprednisolone Sodium Succinate (SOLU-Medrol 40MG VIAL) 40 mg DAILY IV 07/07/21 09:00 07/07/21 09:42 Justifications for Admission Other Justification VINNIE UREÑA MD Jul 07, 2021 14:39
[2021-07-07 15:00] VITALS: BP 111/51
--- NOTE | 2021-07-07 16:10 | NUR ---
SW following. Discussed with RN, pt from home, 2L (uses oxygen at home), cardiac diet, COVID-19 negative. Therapy recommending home independent. SW will continue to follow.
[2021-07-07] MEDS: traMADol 50 MG TABLET PO PRN (17:14)
[2021-07-07 19:00] VITALS: BP 123/60
--- NOTE | 2021-07-07 20:00 | NUR ---
C/o being dizzy currently. BP 121/73, P 73, 99% on 2l. Reminded patient to use call light for assistance and not get OOB w/o help. Verbalizes understanding.
[2021-07-07] MEDS: ATORVASTATIN CALCIUM 40 MG TABLET. PO SCH (21:28)
[2021-07-07 23:00] VITALS: BP 133/67
[2021-07-08 03:00] VITALS: BP 131/65
[2021-07-08 07:00] VITALS: BP 141/78
[2021-07-08] MEDS: IPRATRPIUM/ALBUTEROL 0.5/2.5MG 3 ML NEBU. NEB SCH ×4 (07:20→20:32)
[2021-07-08] MEDS: BUDESONIDE 0.5 MG/2 ML NEBU. NEB SCH ×2 (07:20→20:32)
[2021-07-08 08:06] LABS: CALCIUM 8.3 mg/dL (8.5-10.1); CREATININE 0.9 mg/dL (0.7-1.3); GFR 100.9; POTASSIUM 4.1 mmol/L (3.5-5.1)
[2021-07-08] MEDS: PANTOPRAZOLE 40 MG TABLET.DR. PO SCH (08:47)
[2021-07-08] MEDS: ASPIRIN CHEWABLE 81 MG TABLET. PO SCH (08:47)
[2021-07-08] MEDS: methylPREDNISolone SOD SUCC PF 40 MG/ML VIAL. IV SCH (08:48)
[2021-07-08] MEDS: METOPROLOL SUCC 24HR ER 25 MG TAB.ER.24H. PO SCH (08:50)
[2021-07-08] MEDS: predniSONE 20 MG TABLET PO SCH (10:31)
[2021-07-08] MEDS: traMADol 50 MG TABLET PO PRN ×3 (10:31→22:04)
[2021-07-08] MEDS: ENOXAPARIN 40 MG/0.4 ML SYRINGE. SQ SCH (10:32)
[2021-07-08 11:00] VITALS: BP 121/71
[2021-07-08] MEDS: DICLOFENAC SODIUM 1% TOPICAL GEL 100GM TUBE. TP SCH ×2 (12:40→22:09)
[2021-07-08] MEDS ORDERED: AMLO-186 PO (13:32)
[2021-07-08] MEDS ORDERED: METO-239 PO (13:32)
--- NOTE | 2021-07-08 13:34 | DISCH ---
DISCHARGE INSTRUCTIONS Condition on Discharge Condition on Discharge: Stable Activity After Discharge Activity Instructions for Disc: Resume previous activity, Activity as tolerated Lifting Instructions after Dis: No heavy lifting, No pulling or pushing, Do not lift >10 pounds Exercise Instruction after Dis: Progress as tolerated Driving Instructions after Dis: Do not drive today Weight Bearing Status after Di: As tolerated Diet after Discharge Diet after Discharge: Cardiac Diet Texture: Regular Liquid Texture: Thin Liquid Swallowing Supervision: None needed Wound Incision Care Wound/Incision Care: No wound care needed Checks after Discharge Checks after discharge: Check blood press - daily Contacting the DR. after DC Call your doctor for: If your condition worsens Follow-Up Follow up with: PCP within 2 weeks of discharge Treatment/Equipment after DC Adaptive Equipment Issued: Front wheeled walker Discharge Respiratory Equipmen: Oxygen, Nebulizer VINNIE UREÑA MD Jul 08, 2021 13:34
[2021-07-08] MEDS ORDERED: oxyCODONE/APAP 5/325 1 TAB TABLET PO PRN (14:45)
[2021-07-08 15:00] VITALS: BP 134/73
--- NOTE | 2021-07-08 15:36 | NUR ---
SW following. Discussed with RN, discharge order for home with self care. RN advised no SW needs.
[2021-07-08 19:00] VITALS: BP 146/107
[2021-07-08] MEDS: ATORVASTATIN CALCIUM 40 MG TABLET. PO SCH (22:04)
[2021-07-08] MEDS: guaiFENesin DM 200MG/20MG 10 ML SYRUP PO PRN (22:04)
[2021-07-08 23:28] VITALS: BP 147/80
[2021-07-09 03:00] VITALS: BP 143/76
[2021-07-09 07:00] VITALS: BP 154/72
[2021-07-09 07:21] LABS: CALCIUM 8.8 mg/dL (8.5-10.1); CREATININE 0.9 mg/dL (0.7-1.3); GFR 100.9; POTASSIUM 4.3 mmol/L (3.5-5.1)
[2021-07-09] MEDS: IPRATRPIUM/ALBUTEROL 0.5/2.5MG 3 ML NEBU. NEB SCH ×3 (07:23→15:34)
[2021-07-09] MEDS: BUDESONIDE 0.5 MG/2 ML NEBU. NEB SCH (07:23)
[2021-07-09] MEDS: ASPIRIN CHEWABLE 81 MG TABLET. PO SCH (08:46)
[2021-07-09] MEDS: predniSONE 20 MG TABLET PO SCH (08:46)
[2021-07-09] MEDS: PANTOPRAZOLE 40 MG TABLET.DR. PO SCH (08:46)
[2021-07-09] MEDS: ENOXAPARIN 40 MG/0.4 ML SYRINGE. SQ SCH (08:47)
[2021-07-09 08:54] VITALS: BP 127/67
[2021-07-09 08:57] VITALS: BP 142/82
[2021-07-09] MEDS: METOPROLOL SUCC 24HR ER 25 MG TAB.ER.24H. PO SCH (09:00)
[2021-07-09] MEDS: DICLOFENAC SODIUM 1% TOPICAL GEL 100GM TUBE. TP SCH (09:00)
[2021-07-09 11:00] VITALS: BP 153/68
== END 2021-07-09 17:40 | disposition home or self-care (01) | DRG 189 ==
LOC: ER 12:51 → ED HOLD 17:07 → 5 NORTH 20:09
PROVIDERS: ADMIT Internal Medicine; ATTEND Internal Medicine
DX: J96.01 Acute respiratory failure with hypoxia (principal); E43 Unspecified severe protein-calorie malnutrition; J44.1 Chronic obstructive pulmonary disease with (acute) exacerbation; J44.0 Chronic obstructive pulmonary disease with (acute) lower respiratory infection; Z68.1 Body mass index [BMI] 19.9 or less, adult; E78.00 Pure hypercholesterolemia, unspecified; E78.5 Hyperlipidemia, unspecified; I10 Essential (primary) hypertension; I25.10 Atherosclerotic heart disease of native coronary artery without angina pectoris; I49.3 Ventricular premature depolarization; I65.29 Occlusion and stenosis of unspecified carotid artery; I95.1 Orthostatic hypotension; J20.9 Acute bronchitis, unspecified; R29.6 Repeated falls; S09.90XA Unspecified injury of head, initial encounter; Z20.822 Contact with and (suspected) exposure to COVID-19; Z72.0 Tobacco use; Z86.73 Personal history of transient ischemic attack (TIA), and cerebral infarction without residual deficits; Z87.11 Personal history of peptic ulcer disease; Z95.5 Presence of coronary angioplasty implant and graft; K21.9 Gastro-esophageal reflux disease without esophagitis; M19.90 Unspecified osteoarthritis, unspecified site; W18.39XA Other fall on same level, initial encounter; Y93.89 Activity, other specified; Y92.89 Other specified places as the place of occurrence of the external cause; Y99.8 Other external cause status
CPT/HCPCS: 36415; 70450; 71045; 73130; 80048; 80053; 83880; 84484; 85025; 87426; 93005; 94618; 94640; 94760; 96374; J1100; J1650; J2920; J7512; U0003; U0005; 99285-25; G0378; J7613; J7626